=== PATIENT | female | born 1955 | race American Indian/Alaskan Native ===

== ENCOUNTER 2017-02-28 06:00 | Inpatient (IN) | payer MEDICARE ==
[2017-02-28] MEDS ORDERED: ROCEPHIN/NS 1 GM/50 ML 1 GM/50 ML BAG IV ONE (06:42)
[2017-02-28] MEDS ORDERED: NACL 0.9% 1000 ML IV ONE (06:42)
[2017-02-28] MEDS ORDERED: ZOSYN/NS 4.5GM/100ML 4.5 GM/100 ML VIAL IV ONE (06:48)
--- NOTE | 2017-02-28 06:49 | Emergency Department Report ---
ED General Adult HPI - General Chief complaint: Hypoglycemia Stated complaint: LOW BLOOD SUGAR Time Seen by Provider: 02/28/17 06:41 Source: patient, EMS, RN notes reviewed Mode of arrival: Stretcher Limitations: Altered Mental Status, Physical Limitation - History of Present Illness Initial comments: This is a 61-year-old female. She is previously unknown to me. Past medical history includes stroke, diabetes, hypertension. Patient is brought to the hospital by EMS for hypoglycemia and altered mental status. As per EMS documentation, patient is "sitting up and salivating for the mouth. Patient unresponsive to verbal and physical stimuli. Engine 3% patient's blood glucose level and found it to be 19 mg/dL engine 3 immediately obtained IV access, and made 3 administered 25 g of D50. 20-gauge IV in the right antecubital fossa. Patient very slow to return to normal baseline. Patient's family stated they simply thought she was sleeping until they tried to wake her up. Patient denied other complaints." EMS further documents that the patient began to become slightly more alert and responsive to voice. Patient was able to consume peanut butter sandwich. Patient indicated to EMS that she wants to go to the hospital. In the ER, the patient admits to generalized weakness, but is somewhat somnolent. She is not able to further clarify this, nor is she able to describe exacerbating or relieving factors. -: unknown Improves with: medication, other (per hpi) Worsens with: other (per hpi) Associated Symptoms: confusion, weakness - Related Data Home Medications Medication Instructions Recorded Confirmed Last Taken Clopidogrel [Plavix] 75 mg PO QDAY 12/26/14 12/26/14 12/26/14 Hydrochlorothiazide [HCTZ] 25 mg PO QDAY 12/26/14 12/26/14 12/26/14 Insulin Aspart [NovoLOG 100 5 units SQ TID 12/26/14 12/26/14 12/26/14 UNITS/ML VIAL] Insulin Glargine [Lantus VIAL] 40 units SQ QHS 12/26/14 12/26/14 12/26/14 Losartan [Cozaar] 50 mg PO QDAY 12/26/14 12/26/14 12/26/14 Metoprolol [Lopressor TAB] 12.5 mg PO BID 12/26/14 12/26/14 12/26/14 Omeprazole [PriLOSEC] 40 mg PO ACHS 12/26/14 12/26/14 12/26/14 Simvastatin [Zocor TAB] 20 mg PO QHS 12/26/14 12/26/14 12/26/14 metFORMIN [Glucophage] 1,000 mg PO BID 12/26/14 12/26/14 12/26/14 Previous Rx's Medication Instructions Recorded Last Taken Type Aspirin [Aspirin TAB] 325 mg PO QDAY tablet 12/30/14 Unknown Rx HYDROcodone/ACETAMINOPHEN [Xodol 1 tab PO Q6H PRN #20 12/30/14 12/26/14 Rx 7.5-300 mg TAB] Metoprolol [Lopressor TAB] 50 mg PO BID #60 tablet 12/30/14 Unknown Rx Allergies Allergy/AdvReac Type Severity Reaction Status Date / Time No Known Allergies Allergy Verified 12/26/14 15:33 ED Review of Systems ROS: Stated complaint: LOW BLOOD SUGAR Other details as noted in HPI Comment: Unobtainable due to pts medical conditions (famly not available for collateral) ED Past Medical Hx - Past Medical History Hx Hypertension: Yes Hx CVA: Yes ("IN MY EYES") Hx Diabetes: Yes Hx Arthritis: Yes Hx Asthma: Yes Hx COPD: No Hx HIV: No Additional medical history: CHRONIC BACK PAIN - Surgical History Additional Surgical History: EYE SURGERY - Social History Smoking Status: Never Smoker Substance Use Type: None - Medications Home Medications: Home Medications Medication Instructions Recorded Confirmed Last Taken Type Clopidogrel [Plavix] 75 mg PO QDAY 12/26/14 12/26/14 12/26/14 History Hydrochlorothiazide [HCTZ] 25 mg PO QDAY 12/26/14 12/26/14 12/26/14 History Insulin Aspart [NovoLOG 100 5 units SQ TID 12/26/14 12/26/14 12/26/14 History UNITS/ML VIAL] Insulin Glargine [Lantus VIAL] 40 units SQ QHS 12/26/14 12/26/14 12/26/14 History Losartan [Cozaar] 50 mg PO QDAY 12/26/14 12/26/14 12/26/14 History Metoprolol [Lopressor TAB] 12.5 mg PO BID 12/26/14 12/26/14 12/26/14 History Omeprazole [PriLOSEC] 40 mg PO ACHS 12/26/14 12/26/14 12/26/14 History Simvastatin [Zocor TAB] 20 mg PO QHS 12/26/14 12/26/14 12/26/14 History metFORMIN [Glucophage] 1,000 mg PO BID 12/26/14 12/26/14 12/26/14 History Aspirin [Aspirin TAB] 325 mg PO QDAY tablet 12/30/14 Unknown Rx HYDROcodone/ACETAMINOPHEN [Xodol 1 tab PO Q6H PRN #20 12/30/14 12/26/14 Rx 7.5-300 mg TAB] Metoprolol [Lopressor TAB] 50 mg PO BID #60 tablet 12/30/14 Unknown Rx ED Physical Exam - General Limitations: Altered Mental Status, Physical Limitation General appearance: in no apparent distress, lethargic - Head Head exam: Present: atraumatic, normocephalic - Eye Eye exam: Present: normal appearance, PERRL - ENT ENT exam: Present: mucous membranes dry - Neck Neck exam: Present: normal inspection, full ROM - Respiratory Respiratory exam: Present: normal lung sounds bilaterally. Absent: respiratory distress, wheezes, rales, rhonchi, stridor, chest wall tenderness, accessory muscle use, decreased breath sounds, prolonged expiratory - Cardiovascular Cardiovascular Exam: Present: regular rate, normal rhythm, normal heart sounds. Absent: bradycardia, tachycardia, irregular rhythm, systolic murmur, diastolic murmur, rubs, gallop - GI/Abdominal GI/Abdominal exam: Present: soft, tenderness, normal bowel sounds, other (there is suprapubic and left lower quadrant tenderness. There is no rebound, guarding or peritoneal signs). Absent: distended, guarding, rebound, rigid, pulsatile mass - Extremities Exam Extremities exam: Present: normal inspection, full ROM, normal capillary refill , pedal edema. Absent: calf tenderness - Back Exam Back exam: Present: normal inspection. Absent: tenderness, CVA tenderness (R) - Neurological Exam Neurological exam: Present: altered, other (patient follows commands. Patient moves 4 extremities spontaneously. Unable to participate with extraocular movements. No obvious facial droop. Sensation intact to light touch in 4 extremities) - Psychiatric Psychiatric exam: Present: normal affect, normal mood - Skin Skin exam: Present: warm, dry, intact, normal color. Absent: rash ED Course Vital Signs 02/28/17 02/28/17 06:19 07:46 Temperature 93.0 F L 94.3 F L Pulse Rate 90 86 Respiratory 17 20 Rate Blood Pressure 142/95 Blood Pressure 142/95 170/85 [Left] O2 Sat by Pulse 99 99 Oximetry - Reevaluation(s) Reevaluation #1: 02/28/17 07:05 Differential diagnosis: Bacteremia, pneumonia, urinary tract infection, intra- abdominal infection (abscess/colitis/diverticulitis/perforation), hypoglycemia, sepsis Assessment and plan: 61-year-old female with lethargy, resolved hypoglycemia, hypothermia, left lower quadrant abdominal tenderness. Clinical picture concerning for abdominal sepsis. The patient will be started on the sepsis pathway. She will be given appropriate broad-spectrum antibiotics, 30 mL/kg of IV fluid, blood cultures, urine cultures, urinalyses, appropriate laboratory studies, timed lactic acid will be obtained. There was no indication of trauma from her history. Noncontrast CT scan of the brain and abdomen and pelvis pending. Plan to admit once initial data points have resulted. Reevaluation #2: 02/28/17 08:13 ct brain negative for acute findings ct a/p negative for acute findings UA pending case presented to [facility], who accepts patient to medical service ED Medical Decision Making - Lab Data Result diagrams: 02/28/17 06:41 02/28/17 06:41 Vital Signs (72 hours) 02/28/17 06:19 Temperature 93.0 F L Pulse Rate 90 Respiratory 17 Rate Blood Pressure 142/95 Blood Pressure 142/95 [Left] O2 Sat by Pulse 99 Oximetry Lab Results 02/28/17 Range/Units 06:13 POC Glucose 202 H (70-105) - EKG Data -: EKG Interpreted by Me EKG shows normal: sinus rhythm Rate: normal - EKG Data When compared to previous EKG there are: no significant change 02/28/17 07:06 normal sinus, 82 bpm, normal axis, QTC 502 ms, abnormal EKG, not morphologically consistent with STEMI appears unchanged from prior from December 2014. - Radiology Data Radiology results: image reviewed interpreted by me: X-ray of the chest is negative for acute disease Critical care attestation.: If time is entered above; I have spent that time in minutes in the direct care of this critically ill patient, excluding procedure time. ED Disposition Clinical Impression: Hypothermia, Hypoglycemia Disposition: DC-09 OP ADMIT IP TO THIS HOSP Is pt being admited?: Yes Condition: Fair Referrals: REGINALDO ACOSTA MD [Primary Care Provider] - 3-5 Days
[2017-02-28] MEDS ORDERED: D5/0.45NS 1,000 ML IV SCH (07:00)
[2017-02-28 07:10] LABS: Basophils % (Auto) 0.5 % (0.0-1.8); Eosinophils % (Auto) 0.4 % (0.0-4.3); Mean Corpuscular HGB Conc 30 % (30-34); Platelet Count 295 K/mm3 (140-440); Red Blood Count 5.07 M/mm3 (3.65-5.03); Red Cell Distribution Width 18.2 % (13.2-15.2); White Blood Count 10.4 K/mm3 (4.5-11.0)
[2017-02-28 07:12] LABS: Hematocrit 35.3 % (30.3-42.9); Hemoglobin 10.8 gm/dl (10.1-14.3); Mean Corpuscular Hemoglobin 21 pg (28-32); Mean Corpuscular Volume 70 fl (79-97)
[2017-02-28 07:21] LABS: INR 1.05 (0.87-1.13)
--- NOTE | 2017-02-28 07:23 | Admit Criteria Form ---
Admission Criteria Documentation: GENERAL ADMISSION CRITERIA (Place 'X' for any and all applicable criteria): Admission is indicated for ANY ONE of the following: [ X]I. Hemodynamic instability as indicated by ANY ONE of the following(1)(2 )(3)(4)(5): [ ]a) Vital sign abnormality not readily corrected by appropriate treatment within 12 to 24 hours indicated by ANY ONE of the following: [ ]i) Hypotension [ ]ii) Symptomatic Tachycardia unresponsive to treatment (eg , analgesia, fluids, sedation as indicated) [ ]iii) Orthostatic vital sign changes unresponsive to treatment (eg, fluids) [ X]b) Vital sign abnormality that is severe indicated by ANY ONE of the following: [ X]i) Inadequate perfusion indicated by ANY ONE of the following: [ X]1) Lactic acidosis (greater than 2 mmol/L) [ ]2) New abnormal capillary refill (greater than 3 seconds) [ ]3) Other metabolic acidosis (arterial pH less than 7.35) not otherwise explained [ ]4) Reduced urine output [ ]5) Altered mental status [ ]6) Myocardial Ischemia [ ]v) Mean arterial pressure[A] less than 60 mm Hg [ ]vi) Mean arterial pressure[A] less than 70 mm Hg after 30 minutes of appropriate treatment (eg, fluid resuscitation) [ ]vii) IV inotropic or vasopressor medication required to maintain adequate blood pressure or perfusion [ ]viii) Sustained heart rate greater than 120 beats per minute in adult or child 6 years or older[B]] [ ]II. Hypertension requiring inpatient treatment as indicated by ANY ONE of the following(6)(7)(8): [ ]a) SBP greater than 220 mm Hg or DBP greater than 120 mm Hg despite treatment [ ]b) SBP greater than 140 mm Hg or DBP greater than 100 mm Hg with evidence of acute end organ damage as indicated by ANY ONE of the following: [ ]i) Encephalopathy [ ]ii) Acute renal failure as indicated by new onset of ANY ONE of the following(9)(10)(11)(12)(13): [ ]1) A 3-fold rise in serum creatinine from baseline [ ]2) Serum creatinine greater than 4 mg/dL ( 354 micromoles/L) with acute rise greater than 0.5 mg/dL (44.2 micromoles/L) [ ]3) Reduction of more than 75% in estimated glomerular filtration rate from baseline [ ]4) Estimated glomerular filtration rate less than 35 mL/min/1.73m2 (0.59 mL/sec/1.73m2) in child up to 18 years of age [ ]5) Cessation of urine output indicated by ALL of the following: [ ]A. Adequate volume status [ ]B. Inadequate urine output as indicated by ANY ONE of the following: [ ]a. Urine output less than 0.3 mL/kg/hr for 24 hours [ ]b. Anuria (urine output less than 0.1 mL/kg/hr) for 12 hours [ ]iii) Aortic dissection [ ]iv) Myocardial ischemia [ ]v) Left ventricular heart failure [ ]vi) Retinal hemorrhage [ ]vii) Other significant finding [ ]c) Hypertension in child requiring inpatient treatment as indicated by ALL of the following(14)(15)(16): [ ]i) Outpatient treatment not effective, not available, or not appropriate [ ]ii) SBP or DBP greater than 95th percentile for age [ ]iii) Evidence of acute end organ damage as indicated by ANY ONE of the following: [ ]1) Altered mental status [ ]2) Acute renal failure as indicated by new onset of ANY ONE of the following(9)(10)(11)(12)(13): [ ]A. A 3-fold rise in serum creatinine from baseline [ ]B. Serum creatinine greater than 4 mg/dL (354 micromoles/L) with acute rise greater than 0.5 mg/dL (44.2 micromoles/L) [ ]C. Reduction of more than 75% in estimated glomerular filtration rate from baseline [ ]D. Estimated glomerular filtration rate less than 35 mL/min/1.73m2 (0.59 mL/sec/1.73m2)in child up to 18 years of age [ ]E. Cessation of urine output indicated by ALL of the following: [ ]a. Adequate volume status [ ]b. Inadequate urine output as indicated by ANY ONE of the following: [ ]1) Urine output less than 0.3 mL/kg/hr for 24 hours [ ]2) Anuria (urine output less than 0.1 mL/kg/hr) for 12 hours [ ]3) Severe headache [ ]4) Visual disturbance [ ]5) Retinal hemorrhage [ ]6) Other significant finding [ ]III. Acute cardiac or peripheral ischemia as indicated by ANY ONE of the following: [ ]a) Acute coronary syndrome(17)(18) [ ]b) Acute peripheral ischemia (eg, pulseless, cool, mottled, or cyanotic extremity)(19) [ ]IV. Cardiac arrhythmias or findings of immediate concern indicated by ANY ONE of the following(20)(21): [ ]a) Heart rhythms that are inherently dangerous or unstable indicated by ANY ONE of the following(22)(23)(24): [ ]i) Resuscitated ventricular fibrillation or cardiac arrest [ ]ii) Ventricular escape rhythm [ ]iii) Sustained ventricular tachycardia (30 seconds or more of ventricular rhythm at greater than 100 beats per minute) [ ]iv) Nonsustained ventricular tachycardia and ANY ONE of the following: [ ]1) Suspected cardiac ischemia as cause or consequence of ventricular tachycardia [ ]2) In setting of acute myocarditis [ ]b) Unstable cardiac conduction defects indicated by ANY ONE of the following(24)(25)(26): [ ]i) Type II second-degree atrioventricular block [ ]ii) Third-degree atrioventricular block [ ]iii) New-onset left bundle branch block with suspected myocardial ischemia [ ]c) Any heart rhythm and ANY ONE of the following(22)(23)(27)(28)( 29): [ ] i) Continuous long-term ECG monitoring needed (eg, initiation of drug requiring monitoring for more than 24 hours) [ ] ii) Patient has automatic implanted cardioverter defibrillator that is repeatedly firing, malfunctioning, or in need of immediate adjustment of settings beyond the scope of ambulatory or observation care. [ ]d) Heart rhythms of concern due to ANY ONE of the following: [ ]i) Hypotension [ ]ii) Respiratory distress [ ]iii) Association with other significant symptoms (eg, bradycardia with syncope or ongoing dizziness, supraventricular tachycardia with chest pain) (27)(28) (30) [ ] V. Severe heart failure as indicated by ANY ONE of the following ( 31)(32): [ ]a) Respiratory distress [ ]b) Hypotension [ ]c) Anasarca (refractory to outpatient therapy) [ ]d) Cardiac arrhythmias of immediate concern [ ]e) Myocardial ischemia [ ]. Respiratory abnormalities, including ANY ONE of the following(33)(34) (35)(36): [ ]a) Respiratory rate greater than 30 breaths per minute unresponsive to treatment [A] [ ]b) New saturation of arterial oxygen less than 90% [ ]c) New partial pressure of carbon dioxide greater than 44 mm Hg ( 5.9 kPa) [ ]d) Supplemental oxygen or respiratory treatments needed that are new or not performable at other levels of care [ ]e) New-onset cyanosis [ ]f) Inability to protect airway [ ]g) Chronic lung disease with severe deterioration (not responsive to emergency and observation care treatment as appropriate) as indicated by ANY ONE of the following(34)(36 ): [ ]i) SaO2 5% below baseline in patient with chronic hypoxemia [ ]ii) New requirement for supplemental oxygen to keep SaO2 at baseline or acceptable level [ ]iii) Required supplemental oxygen performable only in acute inpatient setting [ ]iv) Severe airflow or ventilation abnormalities [ ]v) Previously mobile patient unable to walk between rooms [ ]vi Inability to eat or sleep due to dyspnea [ ]vii) Rapid rate of exacerbation onset [ ]viii) Altered mental status ]VII. Severe airflow or ventilation abnormalities (not responsive to emergency and observation care treatment as appropriate) as indicated by ANY ONE of the following(33)(34)(35)(37): [ ]a) PCO2 greater than 42 mm Hg (5.6 kPa) and pH less than 7.35 (new ) [ ]b) Documented PCO2 increased more than 5 mm Hg (0.7 kPa) from disease baseline [ ]c) Airflow measurements [B] less than 60% of previous best or predicted (eg, peak expiratory flow rate less than 300 L/minute) despite intensive emergent treatment [C] [ ]d) Required respiratory treatments that are performable only in acute inpatient setting [ ]VIII. Impending or actual respiratory arrest ( Also use Respiratory Failure GRG for severe respiratory disease and long-term mechanical ventilation patients) [ ]IX. Neurologic abnormalities, including ANY ONE of the following: [ ]a) New findings that suggest ANY ONE of the following: [ ]i) HEAD LIBRARIAN infection(38) [ ]ii) Cerebral bleeding, ischemia, or vasospasm(39)(40) [ ]iii) Increased intracranial pressure, hydrocephalus, or cerebral edema(41)(42)(43) [ ]iv) Spinal cord injury(44) [ ]b) Uncontrolled seizures(45) [ ]c) New-onset coma (eg, Dexter coma scale score less than 9) or unexplained abnormal mental status (eg, Rohan coma scale score less than 14) [D](41)(46)(47) [ ]X. New-onset severe neurologic findings requiring inpatient care; examples include(42)(48)(49): [ ]a) Papilledema [ ]b) Cerebral edema [ ]c) Mass effect on CT scan [ ]XI. Suspected acute intra-abdominal process with peritoneal signs, abdominal mass, or similar findings (50)(51)(52) [ X]XII. Severe physiologic disorder remaining after emergency or observation level care (as appropriate) as indicated by ANY ONE of the following (53): [ ]a) Significant dehydration [ ]b) Diabetic ketoacidosis [ ]c) Hyperglycemic hyperosmolar state (eg, osmolality greater than 320 mOsm/kg (mmol/kg) [ X]d) Hypoglycemia [ ]e) Other (new) acid-base disorder with pH less than 7.35 or greater than 7.5(54) [ ]f) Thyroid storm (55) [ ]g) Myxedema coma (55) [ ]XIII. Abdominal abnormalities with ANY ONE of the following(56)(57): [ ]a) Absent bowel sounds with complete ileus [ ]b) Signs of intestinal obstruction or peritonitis [E] [ ]c) Nausea and vomiting that cannot be controlled with outpatient or observation care [ ]XIV. Acute renal failure as indicated by new onset of ANY ONE of the following(9)(10)(11)(12)(13): [ ]a) A 3-fold rise in serum creatinine from baseline [ ]b) Serum creatinine greater than 4 mg/dL (354 micromoles/L) with acute rise greater than 0.5 mg/dL (44.2 micromoles/L) [ ]c) Reduction of more than 75% in estimated glomerular filtration rate from baseline [ ]d) Estimated glomerular filtration rate less than 35 mL/min/ 1.73m2 (0.59 mL/sec/1.73m2) in child up to 18 years of age [ ]e) Cessation of urine output indicated by ALL of the following: [ ]i) Adequate volume status [ ]ii) Inadequate urine output as indicated by ANY ONE of the following: [ ]1) Urine output less than 0.3 mL/kg/hr for 24 hours [ ]2) Anuria (urine output less than 0.1 mL/kg/hr) for 12 hours [ ]XV. Significant uremic complications as indicated by ANY ONE of the following(58)(59)(60): [ ]a) Outpatient therapy is ineffective or not feasible for ANY ONE of the following: [ ]i) Severe heart failure [ ]ii) Severehypertension [ ]iii) Pleural effusion [ ]iv) Pericarditis or pericardial effusion [ ]b) Cardiac arrhythmias of immediate concern [ ]c) Intractable nausea or vomiting [ ]d) Recurrent seizures [ ]e) Encephalopathy [ ]f) Bleeding abnormalities (eg, platelet dysfunction) with active (eg, gastrointestinal) bleeding [ ]g) Dialysis indicated before long-term access or ambulatory arrangements can be made [ ]h) Significant metabolic or electrolyte abnormalities (eg, severe acidosis or hyperkalemia) [ ]XVI. High fever or other high-risk infection situation as indicated by ANY ONE of the following(61)(62)(63)(64): [ ]a) Outpatient and observation care antimicrobial treatment unavailable, not effective, or not appropriate [ ]b) Documented bacteremia [ ]c) Temperature greater than 40.5 degrees C (104.9 degrees F) ( oral) [ ]d) Temperature greater than 39.5 degrees C (103.1 degrees F) ( oral) or less than 36 degrees C (96.8 degrees F) (rectal) that does not respond to e treatment and observation care [X] XVII. Temperature less than 95 degrees F (35 degrees C)(rectal)(65) [ ] XVIII. Severe nutritional abnormalities as indicated by ALL of the following (66)(67): [ ]a) Inability to tolerate or establish sufficient oral or other enteral nutrition in outpatient setting [ ]b) Parenteral nutrition regimen need that must be implemented on inpatient basis [ ] XIX. Severe electrolyte abnormalities indicated by ALL of the following(68) (69)(70): [ ]a) Electrolytes and associated findings are not as expected for patient baseline or acceptable treatment effects. [ ]b) Severe abnormalities indicated by ANY ONE of the following: [ ]i) Sodium less than 130 mEq/L (mmol/L) (new) [ ]ii)Sodium less than 135 mEq/L (mmol/L) with ANY ONE of the following: [ ]1) Uncorrectable (to near normal or chronic baseline) after trial of outpatient and emergency treatment [ ]2) Altered mental status [ ]3) Seizures [ ]4) Severe medical etiology requiring inpatient management (eg, heart failure, hypovolemia) [ ]iii) Sodium greater than 155 mEq/L (mmol/L) [ ]iv) Sodium greater than 150 mEq/L (mmol/L) with ANY ONE of the following: [ ]1) Uncorrectable (to near normal or chronic baseline) with outpatient and emergency treatment [ ]2) Altered mental status [ ]3) Seizures [ ]4) Severe medical etiology (eg, hypovolemia, diabetes insipidus) [ ]v) Potassium less than 2.5 mEq/L (mmol/L) despite outpatient and emergency treatment [ ]vi) Potassium less than 3 mEq/L (mmol/L) with ANY ONE of the following: [ ]1) Weakness [ ]2) Cardiac abnormality (eg, arrhythmia, conduction disturbance) [ ]3) Cardiac ischemia [ ]4) Ileus [ ]5) Ongoing medical cause requiring inpatient management (eg, acute renal wasting or SIADH) [ ]6) Other severe symptoms [ ]vii) Potassium greater than 6.5 mEq/L (mmol/L) [ ]viii) Potassium greater than 5 mEq/L (mmol/L) with ANY ONE of the following: [ ]1) Uncorrectable (to near normal or chronic baseline) with outpatient and emergency treatment [ ]2) Severe ECG findings [F] [ ]3) Acute worsening of renal failure (creatinine greater than 2.5 mg/dL (221 micromoles/L) or significant elevation for age and size) [ ]4) Severe weakness [ ]5) Severe medical etiology (eg, hemolysis, infection, drug overdose) [ ]ix) Calcium less than 7 mg/dL (1.75 mmol/L) despite outpatient and emergency treatment (72) [ ]x) Calcium less than 8 mg/dL (2 mmol/L) with significant symptoms or findings; examples include(72): [ ]1) Altered mental status [ ]2) Muscle spasms [ ]3) Seizures [ ]4) Breathing difficulty [ ]5) Cardiac abnormality (eg, arrhythmia or conduction disturbance) [ ]xi) Calcium greater than 14 mg/dL (3.5 mmol/L)(72) [ ]xii) Calcium greater than 12 mg/dL (3 mmol/L) with ANY ONE of the following(72): [ ]1) Uncorrectable (to near normal or chronic baseline) with outpatient and emergency treatment [ ]2) Significant dehydration or hypovolemia as indicated by ALL of the following(70)(73)(74): [ ]A. Not resolved with initial treatments [ ]B. Clinically significant dehydration as indicated by ANY ONE of the following: [ ]a. Vomiting refractory to outpatient treatment (ie, precluding oral rehydration) [ ]b. Inability to drink [ ]c. Hypernatremia or other electrolyte abnormality unable to be corrected with outpatient and emergency treatment [ ]d. Failure to remain hydrated with outpatient therapy [ ]e. Reduced urine output [ ]f. Hypotension [ ]g. Serious cause for dehydration requiring acute hospitalization (eg, bowel obstruction, increased intracranial pressure, infectious cause) [ ]h. Child with ANY ONE of the following(75): [ ]1) Severe abdominal tenderness [ ]2) Adequate care not available at home [ ]3) Severe dehydration ( greater than 9% loss of body weight) [ ]4) Significant symptoms or findings; examples include: [ ]A. Altered mental status [ ]B. Cardiac abnormality (eg, arrhythmia, conduction disturbance) [ ]C. Malignant etiology requiring inpatient treatment [ ]xiii) Phosphorus less than 1 mg/dL (0.32 mmol/L) [ ]xiv) Phosphorus less than 1.5 mg/dL (0.48 mmol/L) with ANY ONE of the following: [ ]1) Patient unresponsive to outpatient and emergency treatment [ ]2) Significant symptoms or findings; examples include: [ ]A. Weakness [ ]B. Altered mental status [ ]C. Breathing difficulty [ ]D. Seizures [ ]E. Rhabdomyolysis [ ]xv) Phosphorus greater than 10 mg/dL (3.2 mmol/L) [ ]xvi) Phosphorus greater than 4.5 mg/dL (1.45 mmol/L) (new) with ANY ONE of the following: [ ]1) Severe medical etiology (eg, crush injury, acute renal failure) [ ]2) Associated hypocalcemia with significant findings; examples include: [ ]A. Neurologic symptoms [ ]B. Altered mental status [ ]C. Muscle spasms [ ]D. Seizures [ ]E. Breathing difficulty [ ]F. Cardiac abnormality (eg, arrhythmia, conduction disturbance) [ ]xvii) Magnesium less than 1 mg/dL (0.41 mmol/L) [ ]xviii) Magnesium less than 1.5 mg/dL (0.62 mmol/L) with ANY ONE of the following: [ ]1) Patient unresponsive to outpatient and emergency treatment [ ]2) Associated hypocalcemia with significant findings; examples include: [ ]A. Altered mental status [ ]B. Muscle spasms [ ]C. Seizures [ ]D. Breathing difficulty [ ]E. Cardiac abnormality (eg, arrhythmia , conduction disturbance) [ ]3) Associated hypokalemia (potassium less than 3 mEq/L (mmol/L)) with risk of arrhythmia [ ]xix) Magnesium greater than 4 mEq/L (2 mmol/L) [ ]xx) Magnesium greater than 2.5 mEq/L (1.25 mmol/L) with significant symptoms or findings; examples include: [ ]1) Weakness [ ]2) Altered mental status [ ]3) Cardiac abnormality (eg, arrhythmia, conduction disturbance) [ ]4) Breathing difficulty [ ]5) Severe medical etiology (eg, renal failure, hypovolemia) [ ]xxi) Uric acid greater than 20 mg/dL (1190 micromoles/L)(76) [ ]xxii) Uric acid greater than 8 mg/dL (476 micromoles/L) with significant symptoms or findings of tumor lysis syndrome; examples include(76): [ ]1) Creatinine greater than 1.5 times upper limit of normal [ ]2) Cardiac abnormality (eg, arrhythmia, conduction disturbance) [ ]3) Seizure [ ]XX. Acute blood loss causing significant abnormality as indicated by ANY ONE of the following(77)(78): [ ]a) Hemoglobin less than 10 g/dL (100 g/L) (not baseline) [ ]b) Hematocrit less than 30% (0.30) (not baseline) [ ]c) Repeat hematocrit decreased more than 2% (0.02) [ ]d) Uncontrolled bleeding [ ]XXI. Severe anemia indicated by ANY ONE of the following(78)(79): [ ]a) Altered mental status [ ]b) Chest pain [ ]c) Exertional dyspnea [ ]d) Syncope [ ]e) Other findings suggesting inadequate perfusion [ ]f) Treatment with transfusion or volume replacement is ineffective at resolving ANY ONE of the following [G]: [ ]i) Tachycardia for age [ ]ii) Orthostatic vital sign changes as indicated by ANY ONE of the following(80): [ ]1) Fall in SBP of 20 mm Hg or more 1 to 3 minutes after patient sits or stands from recumbent position [ ]2) Fall in DBP of 10 mm Hg or more 1 to 3 minutes after patient sits or stands from recumbent position [ ]XXII. High-risk low platelet count as indicated by ANY ONE of the following( 81)(82): [ ]a) Severe or life-threatening bleeding (eg, intracranial, major gastrointestinal, or extensive mucosal bleeding), with any reduced platelet count [ ]b) Platelet count less than 20,000/mm3 (20 x109/L) with any active bleeding [ ]c) Platelet count less than 10,000/mm3 (10 x109/L) with minor purpura or petechiae [ ]d) Platelet count less than 5000/mm3 (5 x109/L) [ ]e) Low platelet count with hemolytic anemia [ ]XXIII. Disseminated intravascular coagulation(77)(83) [ ]XXIV. Severe adverse drug or systemic toxin reaction requiring inpatient treatment; examples include(84)(85): [ ]a) Serotonin syndrome(86) [ ]b) Neuroleptic malignant syndrome(86) [ ]c) Cholinergic syndrome with severe symptoms (eg, bronchorrhea, weakness, mental status changes, seizures) [ ]d) Sympathetic syndrome with severe symptoms (eg, seizures, mental status changes, cardiac dysrhythmias) [ ]e) Anticholinergic syndrome [ ]XXV. Severe pain requiring acute inpatient management as indicated by ALL of the following (87)(88)(89): [ ]a) Continuous or frequent (eg, every 2 to 4 hours) parenteral analgesics required [H] [ ]b) Rapid improvement expected from treatment or acute intervention (eg, surgery, anesthesia procedure) [ ]XXVI.Severe behavioral health issues judged unmanageable at a lower level of care (eg, residential) in a patient who is ANY ONE of the following(91) [ ]a) Acutely suicidal [ ]b) A danger to self (eg, self-mutilating or suicidal behavior) [ ]c) A danger to others (eg, assaultive or homicidal behavior) [ ]d) Incapacitated because of grave disability (eg, inability to provide for self at lower level of care) (92) [ ]XXVII. Inpatient monitoring needed; examples include(1)(3)(87)(93)(94)(95)(96 ): [ ]a) Vital signs, neurologic signs, or vascular checks more frequently than every 4 hours [ ]b) Cardiac or respiratory monitoring beyond the scope (eg, over 24 hours) of observation care [ ]c) Pulmonary artery catheter monitoring [ ]d) Suspected compartment syndrome(97) (98) [ ]e) Cerebral bleeding, hydrocephalus, or vasospasm monitoring [ ]f) Increased intracranial pressure or cerebral edema monitoring [ ]g) monitoring [ ]XXVIII. Treatment requiring inpatient care; examples include: [ ]a) IV fluid to replace significant ongoing losses (greater than 3 L/m2 per day)(53) [ ]b) High concentration oxygen (greater than 40%)(33)(99)(100) [ ]c) Frequent respiratory therapy (more frequently than every 4 hours) to maintain airflow rates greater than 60% of baseline(33)(99)(100) [ ]d) Epidural analgesia(87) [ ]e) IV anticoagulation, vasoactive, or antiarrhythmic medication(19 )(23) [ ]f) Acute thrombolytics (generally require 24 hours of observation )(101)(102) [ ]XXIX. Emergency procedures needed; examples include: [ ]a) Emergency inpatient surgery [ ]b) Temporary pacemaker placement(103) [ ]c) Chest tube placement with active evacuation (eg, suction, drainage)(104) [ ]d) Emergent cardioversion(105) [ ]e) Emergent cardiac or vascular procedures (eg, cardiac catheterization, angioplasty) (17)(18) [ ]f) Emergent dialysis access placement and institution(10)(106) [ ]g) Emergent pericardiocentesis(107) [ ]h) Emergent plasmapheresis or leukapheresis(83) [ ]i) Emergent tracheostomy The original [facility] content created by [facility] has been revised. The portions of the content which have been revised are identified through the use of italic text or in bold, and [email or web address] [employer] has neither reviewed nor approved the modified material. All other unmodified content is copyright [facility]. Please see references footnoted in the original [facility] edition 2016 Admission Criteria Met: Yes
--- NOTE | 2017-02-28 07:24 | XRay Report ---
AP CHEST: HISTORY: Fever, sepsis AP view of the chest demonstrates a normal mediastinal and cardiac contour with clear lungs and normal bony and soft tissue structures. IMPRESSION: Unremarkable AP chest. No change since 01/05/15.
[2017-02-28 07:27] LABS: Alanine Aminotransferase 13 units/L (7-56); Albumin 4.4 g/dL (3.9-5); Albumin/Globulin Ratio 1.3 %; Alkaline Phosphatase 84 units/L (35-129); Anion Gap 24 mmol/L; BUN/Creatinine Ratio 13.33; Blood Urea Nitrogen 8 mg/dL (7-17); Calcium 9.5 mg/dL (8.4-10.2); Carbon Dioxide 20 mmol/L (22-30); Chloride 101.8 mmol/L (98-107); Glucose 173 mg/dL (65-100); Potassium 3.8 mmol/L (3.6-5.0); Sodium 142 mmol/L (137-145); Total Protein 7.9 g/dL (6.3-8.2)
--- NOTE | 2017-02-28 07:29 | Cat Scan Report ---
CT HEAD WITHOUT CONTRAST: HISTORY: Fever, Sepsis, mental status changes. Technique: Sequential noncontrast CT images in 2.5 mm intervals. Findings: Compared to 12/26/14. Mild cortical volume loss and mild nonspecific chronic white matter changes are stable. There are multiple, bilateral chronic appearing lacunar infarcts in the thalami and angel. There does appear to be one new area of diminished attenuation in the posterior medial left angel since the previous exam. The age of this is indeterminate but I suspect it is chronic. No large ischemic infarct or hemorrhage is identified. Ventricular size is within normal limits. The basal cisterns are clear. The mastoid air cells and visualized portions of the sinuses are normal. IMPRESSION: Mild volume loss and chronic white matter changes. 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 Please see above. If further evaluation is needed, MRI brain could be obtained. No acute intracranial process is appreciated.
--- NOTE | 2017-02-28 07:36 | Cat Scan Report ---
CT OF THE ABDOMEN AND PELVIS WITHOUT CONTRAST HISTORY: Left lower quadrant abdominal pain, evaluate for diverticulitis, perforation or abscess. TECHNIQUE: Helical CT without contrast. Sagittal and coronal reformatted images. FINDINGS: A CT abdomen pelvis without contrast report dated 01/16/12 was reviewed. The images were not available. Heart size is normal. The visualized lung bases are clear. Mild thoracolumbar spondylosis. No bony lesion or fracture. The bowel loops are within normal limits given oral contrast was administered. There is no evidence for diverticulosis or diverticulitis. No obstruction or focal inflammation. The appendix is within normal limits. The liver, biliary system, pancreas, spleen, adrenal glands and aorta are unremarkable. The bladder is moderately distended. No bladder wall thickening or filling defect is appreciated. The kidneys are unremarkable. No focal lesion or nephrolithiasis. Minimal nonspecific perinephric stranding is noted bilaterally. The ureters are normal course and caliber. Hysterectomy changes. No evidence for ascites, adenopathy, free air or inflammatory changes. IMPRESSION: No definite acute inflammatory process is appreciated in the abdomen or pelvis. No clear explanation for left lower quadrant abdominal pain. The bladder is moderately distended but otherwise unremarkable. Please correlate with the patient's clinical presentation.
[2017-02-28] MEDS ORDERED: NACL 0.9% 250ML 250 ML ONE (07:53)
[2017-02-28 08:11] LABS: Urine Drugs of Abuse Note Disclamer
[2017-02-28] MEDS ORDERED: MILK OF MAGNESIA PO PRN ×2 (08:16→12:07)
[2017-02-28] MEDS ORDERED: TYLENOL PO PRN ×2 (08:16→12:07)
--- NOTE | 2017-02-28 08:20 | History and Physical Report ---
<ROCKYJAYDA VILLANUEVA - Last Filed: 02/28/17 12:39> History of Present Illness Date of examination: 02/28/17 Date of admission: 02/28/2017 Chief complaint: Altered mental status History of present illness: Patient is 61 years old female with past medical history CVA, hypertension diabetes mellitus. Patient Altered mental status, unable to obtain history. Patient is brought to the hospital by EMS for hypoglycemia and altered mental status. As per EMS documentation, patient is "sitting up and salivating for the mouth. Patient unresponsive to verbal and physical stimuli. Patient have found hypoglycemic with blood glucose 19 mg/dL. history obtained from ER physician and charts. Past History Past Medical History: diabetes, hypertension, hyperlipidemia, stroke Past Surgical History: Other (unable to assess) Family history: other (unable to assess) Medications and Allergies Allergies Allergy/AdvReac Type Severity Reaction Status Date / Time No Known Allergies Allergy Verified 12/26/14 15:33 Home Medications Medication Instructions Recorded Confirmed Last Taken Type Clopidogrel [Plavix] 75 mg PO QDAY 12/26/14 02/28/17 02/27/17 History Losartan [Cozaar] 50 mg PO QDAY 12/26/14 02/28/17 02/27/17 History Simvastatin [Zocor TAB] 20 mg PO QHS 12/26/14 02/28/17 02/27/17 History metFORMIN [Glucophage] 1,000 mg PO BID 12/26/14 02/28/17 02/27/17 History Metoprolol [Lopressor TAB] 50 mg PO BID #60 tablet 12/30/14 02/28/17 02/27/17 Rx Albuterol Sulfate [Ventolin HFA] 2 puff IH Q4H PRN 02/28/17 02/28/17 Unknown History Gabapentin [Neurontin] 600 mg PO Q8H 02/28/17 02/28/17 02/27/17 History Insulin Aspart Protam & Aspart 30 units SQ QPM 02/28/17 02/28/17 02/27/17 History [NovoLOG Mix 70-30 Flexpen] Insulin Aspart Protam & Aspart 40 units SQ QAM 02/28/17 02/28/17 02/27/17 History [NovoLOG Mix 70-30 Flexpen] amLODIPine [Norvasc] 5 mg PO DAILY 02/28/17 02/28/17 02/27/17 History Active Meds: Active Medications Dextrose/Sodium Chloride (D5/0.45ns) 1,000 mls @ 0 mls/hr IV DIRECT TICO PRN Reason: Wide Open Review of Systems ROS unobtainable: due to mental status (unable to assess due to patient mental status) Exam - Constitutional Vitals: Temp Pulse Resp BP Pulse Ox 94.3 F L 86 20 170/85 99 02/28/17 07:46 02/28/17 07:46 02/28/17 07:46 02/28/17 07:46 02/28/17 07:46 General appearance: Present: other (confused) - EENT Eyes: Present: PERRL ENT: hearing intact - Neck Neck: Present: supple - Respiratory Respiratory effort: normal Respiratory: bilateral: CTA - Cardiovascular Heart rate: 84 Rhythm: regular Heart Sounds: Present: S1 & S2 - Extremities Extremities: no ischemia Peripheral Pulses: within normal limits - Abdominal General gastrointestinal: Present: soft, non-tender Female genitourinary: Present: deferred - Rectal Rectal Exam: deferred - Integumentary Integumentary: Present: clear, warm, dry - Musculoskeletal Musculoskeletal: strength equal bilaterally - Psychiatric Psychiatric: other (AMS) - Neurologic Neurologic: moves all extremities, other (AMS) - Allied Health Allied health notes reviewed: nursing Results - Labs CBC & Chem 7: 02/28/17 06:41 02/28/17 06:41 Labs: Laboratory Last Values WBC 10.4 K/mm3 (4.5-11.0) 02/28/17 06:41 RBC 5.07 M/mm3 (3.65-5.03) H 02/28/17 06:41 Hgb 10.8 gm/dl (10.1-14.3) 02/28/17 06:41 Hct 35.3 % (30.3-42.9) 02/28/17 06:41 MCV 70 fl (79-97) L 02/28/17 06:41 MCH 21 pg (28-32) L 02/28/17 06:41 MCHC 30 % (30-34) 02/28/17 06:41 RDW 18.2 % (13.2-15.2) H 02/28/17 06:41 Plt Count 295 K/mm3 (140-440) 02/28/17 06:41 Lymph % (Auto) 18.1 % (13.4-35.0) 02/28/17 06:41 [place] % (Auto) 4.0 % (0.0-7.3) 02/28/17 06:41 Eos % (Auto) 0.4 % (0.0-4.3) 02/28/17 06:41 Baso % (Auto) 0.5 % (0.0-1.8) 02/28/17 06:41 Lymph # 1.9 K/mm3 (1.2-5.4) 02/28/17 06:41 [place] # 0.4 K/mm3 (0.0-0.8) 02/28/17 06:41 Eos # 0.0 K/mm3 (0.0-0.4) 02/28/17 06:41 Baso # 0.1 K/mm3 (0.0-0.1) 02/28/17 06:41 Seg Neutrophils % 77.0 % (40.0-70.0) H 02/28/17 06:41 Seg Neutrophils # 8.0 K/mm3 (1.8-7.7) H 02/28/17 06:41 PT 13.6 Sec. (12.2-14.9) 02/28/17 06:55 INR 1.05 (0.87-1.13) 02/28/17 06:55 Sodium 142 mmol/L (137-145) 02/28/17 06:41 Potassium 3.8 mmol/L (3.6-5.0) 02/28/17 06:41 Chloride 101.8 mmol/L (98-107) 02/28/17 06:41 Carbon Dioxide 20 mmol/L (22-30) L 02/28/17 06:41 Anion Gap 24 mmol/L 02/28/17 06:41 BUN 8 mg/dL (7-17) 02/28/17 06:41 Creatinine 0.6 mg/dL (0.7-1.2) L 02/28/17 06:41 Estimated GFR > 60 ml/min 02/28/17 06:41 BUN/Creatinine Ratio 13.33 % 02/28/17 06:41 Glucose 173 mg/dL (65-100) H 02/28/17 06:41 POC Glucose 233 (70-105) H 02/28/17 07:35 Lactic Acid 3.60 mmol/L (0.7-2.0) H* 02/28/17 06:55 Calcium 9.5 mg/dL (8.4-10.2) 02/28/17 06:41 Total Bilirubin 0.30 mg/dL (0.1-1.2) 02/28/17 06:41 AST 15 units/L (5-40) 02/28/17 06:41 ALT 13 units/L (7-56) 02/28/17 06:41 Alkaline Phosphatase 84 units/L (35-129) 02/28/17 06:41 Troponin T < 0.010 ng/mL (0.00-0.029) 02/28/17 06:55 Total Protein 7.9 g/dL (6.3-8.2) 02/28/17 06:41 Albumin 4.4 g/dL (3.9-5) 02/28/17 06:41 Albumin/Globulin Ratio 1.3 % 02/28/17 06:41 - Imaging and Cardiology Chest x-ray: image reviewed (unremarkable AP chest) Abdominal x-ray: image reviewed CT scan - abdomen: image reviewed (bladder is moderately distended but otherwise unremarkable) CT Scan - head: image reviewed (mild volume loss and chronic white matter changes.Multiple bilateral lacunar infracts in the thalami and angel. No acute interacranial process, ) Assessment and Plan Assessment and plan: ASSESSMENT/PLAN Acute metabolic encephalopathy Treat underline cause Most likely due to sepsis CT of the head shows mild volume loss and chronic white matter changes.Multiple bilateral lacunar infarcts in the thalami and angel. No acute interacranial process noted MRI of the for further evaluation. Sepsis Hypothermia Blood and urine culture collected prior to antibiotic IV fluid resuscitation and continuous IVF Started on empiric antibiotic treatment with Zosyn and vancomycin Lactic acidosis Most likely due to sepsis We will repeat Lactic acid level Closely monitor patient Diabetes mellitus Accu-Chek before meals and at bedtime Sliding scale insulin/NovoLog Hypertension Continue home antihypertensive medication HX of CVA Physical therapy and aquatic occupational therapy on board DVT/ GI prophylaxis Lovenox/ Protonix Advance Directives: Yes Contraindication Mechanical VTE Prophylaxis: Treatment Not Indicated Plan of care discussed with patient/family: Yes <LILI CASTREJON R - Last Filed: 03/01/17 11:57> History of Present Illness Date of admission: 02/28/17 08:16 Medications and Allergies Active Meds: Active Medications Acetaminophen (Tylenol) 650 mg PO Q4H PRN PRN Reason: Pain MILD(1-3)/Fever >100.5/[place]ORTON Aspirin (Aspirin) 325 mg PO QDAY [facility] Last Admin: 03/01/17 11:35 Dose: 325 mg Bisacodyl (Dulcolax) 10 mg VA QDAY PRN PRN Reason: Constipation unrelieved by MOM Clopidogrel Bisulfate (Plavix) 75 mg PO QDAY [facility] Last Admin: 03/01/17 11:35 Dose: 75 mg Dextrose (D50w (25gm)) 50 ml IV PRN PRN PRN Reason: Hypoglycemia Enoxaparin Sodium (Lovenox) 40 mg SUB-Q QDAY [facility] Last Admin: 03/01/17 11:34 Dose: 40 mg Hydrochlorothiazide (Hctz) 25 mg PO QDAY [facility] Last Admin: 03/01/17 11:34 Dose: 25 mg Sodium Chloride (Nacl 0.9% 1000 Ml) 1,000 mls @ 75 mls/hr IV DIRECT [facility] Last Admin: 03/01/17 05:36 Dose: 75 mls/hr Piperacillin Sod/Tazobactam Sod (Zosyn/Ns 4.5gm/100ml) 4.5 gm in 100 mls @ 200 mls/hr IV Q6HR [facility] Last Admin: 03/01/17 11:29 Dose: 200 mls/hr Vancomycin HCl (Vancomycin/Ns 1 Gm/250 Ml) 1 gm in 250 mls @ 166.667 mls/hr IV Q12H [facility] Last Admin: 03/01/17 05:35 Dose: 166.667 mls/hr Insulin Aspart (Novolog) 5 units SUB-Q TIDDIAB [facility] Last Admin: 03/01/17 08:22 Dose: Not Given Insulin Detemir (Levemir) 40 units SUB-Q QHS [facility] Last Admin: 02/28/17 22:24 Dose: 40 units Losartan Potassium (Cozaar) 50 mg PO QDAY [facility] Last Admin: 03/01/17 11:34 Dose: 50 mg Magnesium Hydroxide (Milk Of Magnesia) 30 ml PO Q4H PRN PRN Reason: Constipation Metformin HCl (Glucophage) 1,000 mg PO BIDDIAB [facility] Last Admin: 03/01/17 08:21 Dose: 1,000 mg Metoprolol Tartrate (Lopressor) 12.5 mg PO BID [facility] Last Admin: 03/01/17 11:35 Dose: 12.5 mg Ondansetron HCl (Zofran) 4 mg IV Q8H PRN PRN Reason: N/V unrelieved by Reglan Pantoprazole Sodium (Protonix) 20 mg PO ACHS [facility] Last Admin: 03/01/17 11:35 Dose: 20 mg Simvastatin (Zocor) 20 mg PO QHS [facility] Last Admin: 02/28/17 22:17 Dose: 20 mg Vancomycin HCl (Vancomycin Pharmacy To Dose) 1 each IV PKCONSULT [facility] PRN Reason: Protocol Exam - Constitutional Vitals: Temp Pulse Resp BP Pulse Ox 98.2 F 66 20 195/95 98 03/01/17 07:50 03/01/17 11:34 03/01/17 07:50 03/01/17 11:34 03/01/17 07:50 Results - Labs CBC & Chem 7: 03/01/17 03:36 03/01/17 03:36 Labs: Laboratory Last Values WBC 8.2 K/mm3 (4.5-11.0) 03/01/17 03:36 RBC 4.18 M/mm3 (3.65-5.03) 03/01/17 03:36 Hgb 9.1 gm/dl (10.1-14.3) L 03/01/17 03:36 Hct 28.1 % (30.3-42.9) L D 03/01/17 03:36 MCV 67 fl (79-97) L 03/01/17 03:36 MCH 22 pg (28-32) L 03/01/17 03:36 MCHC 32 % (30-34) 03/01/17 03:36 RDW 17.8 % (13.2-15.2) H 03/01/17 03:36 Plt Count 246 K/mm3 (140-440) 03/01/17 03:36 Lymph % (Auto) 34.7 % (13.4-35.0) 03/01/17 03:36 [place] % (Auto) 8.2 % (0.0-7.3) H 03/01/17 03:36 Eos % (Auto) 3.3 % (0.0-4.3) 03/01/17 03:36 Baso % (Auto) 0.7 % (0.0-1.8) 03/01/17 03:36 Lymph # 2.8 K/mm3 (1.2-5.4) 03/01/17 03:36 [place] # 0.7 K/mm3 (0.0-0.8) 03/01/17 03:36 Eos # 0.3 K/mm3 (0.0-0.4) 03/01/17 03:36 Baso # 0.1 K/mm3 (0.0-0.1) 03/01/17 03:36 Seg Neutrophils % 53.1 % (40.0-70.0) 03/01/17 03:36 Seg Neutrophils # 4.3 K/mm3 (1.8-7.7) 03/01/17 03:36 PT 13.6 Sec. (12.2-14.9) 02/28/17 06:55 INR 1.05 (0.87-1.13) 02/28/17 06:55 Sodium 143 mmol/L (137-145) 03/01/17 03:36 Potassium 3.7 mmol/L (3.6-5.0) 03/01/17 03:36 Chloride 104.7 mmol/L (98-107) 03/01/17 03:36 Carbon Dioxide 22 mmol/L (22-30) 03/01/17 03:36 Anion Gap 20 mmol/L 03/01/17 03:36 BUN 7 mg/dL (7-17) 03/01/17 03:36 Creatinine 0.7 mg/dL (0.7-1.2) 03/01/17 03:36 Estimated GFR > 60 ml/min 03/01/17 03:36 BUN/Creatinine Ratio 10.00 % 03/01/17 03:36 Glucose 147 mg/dL (65-100) H 03/01/17 03:36 POC Glucose 156 (70-105) H 03/01/17 11:29 Lactic Acid 2.90 mmol/L (0.7-2.0) H* 02/28/17 09:36 Calcium 8.5 mg/dL (8.4-10.2) 03/01/17 03:36 Total Bilirubin 0.30 mg/dL (0.1-1.2) 02/28/17 06:41 AST 15 units/L (5-40) 02/28/17 06:41 ALT 13 units/L (7-56) 02/28/17 06:41 Alkaline Phosphatase 84 units/L (35-129) 02/28/17 06:41 Troponin T < 0.010 ng/mL (0.00-0.029) 02/28/17 06:55 Total Protein 7.9 g/dL (6.3-8.2) 02/28/17 06:41 Albumin 4.4 g/dL (3.9-5) 02/28/17 06:41 Albumin/Globulin Ratio 1.3 % 02/28/17 06:41 Urine Color Straw (Yellow) 02/28/17 07:55 Urine Turbidity Clear (Clear) 02/28/17 07:55 Urine pH 5.0 (5.0-7.0) 02/28/17 07:55 Ur Specific [place] 1.006 (1.003-1.030) 02/28/17 07:55 Urine Protein <15 mg/dl mg/dL (Negative) 02/28/17 07:55 Urine Glucose (UA) 150 mg/dL (Negative) 02/28/17 07:55 Urine Ketones Neg mg/dL (Negative) 02/28/17 07:55 Urine Blood Neg (Negative) 02/28/17 07:55 Urine Nitrite Neg (Negative) 02/28/17 07:55 Urine Bilirubin Neg (Negative) 02/28/17 07:55 Urine Urobilinogen < 2.0 mg/dL (<2.0) 02/28/17 07:55 Ur Leukocyte Esterase Neg (Negative) 02/28/17 07:55 Urine WBC (Auto) < 1.0 /HPF (0.0-6.0) 02/28/17 07:55 Urine RBC (Auto) 3.0 /HPF (0.0-6.0) 02/28/17 07:55 Urine Bacteria (Auto) 1+ /HPF (Negative) 02/28/17 07:55 Urine Opiates Screen Presumptive negative 02/28/17 07:55 Urine Methadone Screen Presumptive negative 02/28/17 07:55 Ur Barbiturates Screen Presumptive negative 02/28/17 07:55 Ur Phencyclidine Scrn Presumptive negative 02/28/17 07:55 Ur Amphetamines Screen Presumptive negative 02/28/17 07:55 U Benzodiazepines Scrn Presumptive negative 02/28/17 07:55 Urine Cocaine Screen Presumptive negative 02/28/17 07:55 U Marijuana (THC) Screen Presumptive negative 02/28/17 07:55 Drugs of Abuse Note Disclamer 02/28/17 07:55 Assessment and Plan Assessment and plan: I saw and evaluated the patient. I agree with the findings and the plan of care as documented in the Nurse Practitioner's~note, with the following corrections and additions.
[2017-02-28 08:22] LABS: Bacteria,Urine 1+ /HPF (Negative); Bilirubin,Urine NEG (Negative); Blood,Urine NEG (Negative); Ketones,Urine NEG (Negative); Leukocyte Esterase,Urine NEG (Negative); Nitrite,Urine NEG (Negative); Protein,Urine <15 mg/dL mg/dL (Negative); Urobilinogen,Urine < 2.0 mg/dL (<2.0); WBC,Urine < 1.0 /HPF (0.0-6.0)
[2017-02-28] MEDS ORDERED: D50W (25GM) Syringe IV PRN (08:23)
[2017-02-28 09:00] LABS: LA REFLEX Y
[2017-02-28] MEDS ORDERED: LOPRESSOR PO SCH ×2 (10:00)
[2017-02-28] MEDS ORDERED: DULCOLAX PR PRN ×2 (10:00→12:07)
[2017-02-28] MEDS ORDERED: LOVENOX SUB-Q ONE (10:03)
[2017-02-28] MEDS ORDERED: ASPIRIN ONE (10:03)
[2017-02-28] MEDS ORDERED: COZAAR ONE (10:03)
[2017-02-28] MEDS: ASPIRIN PO SCH (10:12)
[2017-02-28] MEDS: COZAAR PO SCH (10:13)
[2017-02-28] MEDS: LOVENOX SUB-Q SCH (10:14)
[2017-02-28] MEDS ORDERED: PLAVIX ONE (10:31)
[2017-02-28] MEDS ORDERED: HCTZ ONE ×2 (10:31→11:38)
[2017-02-28] MEDS: PLAVIX PO SCH (10:36)
[2017-02-28] MEDS: HCTZ PO SCH (10:38)
[2017-02-28] MEDS ORDERED: NON-FORMULARY (Omeprazole [Prilosec] 40 MG) PO SCH (11:30)
[2017-02-28] MEDS ORDERED: LOPRESSOR ONE (11:43)
[2017-02-28] MEDS: LOPRESSOR PO SCH ×2 (11:49→22:17)
[2017-02-28] MEDS ORDERED: ZOFRAN IV PRN (12:07)
[2017-02-28] MEDS ORDERED: VANCOMYCIN PHARMACY TO DOSE IV SCH (13:00)
[2017-02-28] MEDS: PROTONIX PO SCH ×3 (13:30→22:17)
[2017-02-28] MEDS: GLUCOPHAGE PO SCH ×2 (13:33→17:51)
[2017-02-28] MEDS: NACL 0.9% 1000 ML 1,000 ML IV SCH (13:54)
[2017-02-28] MEDS: NOVOLOG SUB-Q SCH ×2 (14:00→17:53)
[2017-02-28] MEDS ORDERED: VANCOMYCIN 1,500 MG in NACL 0.9% 500 ML 500 ML IV ONE (14:00)
[2017-02-28] MEDS: ZOSYN/NS 4.5GM/100ML 4.5 GM/100 ML VIAL IV SCH ×2 (17:52→23:33)
[2017-02-28] MEDS ORDERED: PROTONIX PO SCH (22:00)
[2017-02-28] MEDS ORDERED: NON-FORMULARY (Insulin Glargine 40 UNITS) SQ SCH (22:00)
[2017-02-28] MEDS: ZOCOR PO SCH (22:17)
[2017-02-28] MEDS: LEVEMIR SUB-Q SCH (22:24)
[2017-03-01 04:25] LABS: Basophils % (Auto) 0.7 % (0.0-1.8); Eosinophils % (Auto) 3.3 % (0.0-4.3); Hematocrit 28.1 % (30.3-42.9); Hemoglobin 9.1 gm/dl (10.1-14.3); Mean Corpuscular HGB Conc 32 % (30-34); Platelet Count 246 K/mm3 (140-440); Red Blood Count 4.18 M/mm3 (3.65-5.03); Red Cell Distribution Width 17.8 % (13.2-15.2); White Blood Count 8.2 K/mm3 (4.5-11.0)
[2017-03-01 04:26] LABS: Mean Corpuscular Hemoglobin 22 pg (28-32); Mean Corpuscular Volume 67 fl (79-97)
[2017-03-01 04:38] LABS: Anion Gap 20 mmol/L; Blood Urea Nitrogen 7 mg/dL (7-17); Calcium 8.5 mg/dL (8.4-10.2); Carbon Dioxide 22 mmol/L (22-30); Chloride 104.7 mmol/L (98-107); Glucose 147 mg/dL (65-100); Potassium 3.7 mmol/L (3.6-5.0); Sodium 143 mmol/L (137-145)
[2017-03-01] MEDS: VANCOMYCIN/NS 1 GM/250 ML 1 GM/250 ML BAG IV SCH ×2 (05:35→17:38)
[2017-03-01] MEDS: NACL 0.9% 1000 ML 1,000 ML IV SCH (05:36)
[2017-03-01] MEDS: ZOSYN/NS 4.5GM/100ML 4.5 GM/100 ML VIAL IV SCH ×3 (07:41→17:31)
[2017-03-01] MEDS: GLUCOPHAGE PO SCH ×2 (08:21→17:32)
[2017-03-01] MEDS: PROTONIX PO SCH ×4 (08:21→22:50)
[2017-03-01] MEDS: NOVOLOG SUB-Q SCH ×3 (08:22→17:33)
--- NOTE | 2017-03-01 08:58 | Progress Note ---
Assessment and Plan Assessment and plan: Acute metabolic encephalopathy Resolved. Patient currently oriented to person, place and time. Most likely due to sepsis and hypoglycemic state CT of the head shows mild volume loss and chronic white matter changes.Multiple bilateral lacunar infarcts in the thalami and angel. No acute interacranial process noted MRI of the for further evaluation. Sepsis Hypothermia Blood and urine culture collected prior to antibiotic IV fluid resuscitation and continuous IVF Started on empiric antibiotic treatment with Zosyn and vancomycin Lactic acidosis Resolved Most likely due to sepsis Diabetes mellitus Accu-Chek before meals and at bedtime Sliding scale insulin/NovoLog Hypertension Continue home antihypertensive medication HX of CVA Physical therapy and occupational therapy on board DVT/ GI prophylaxis Lovenox/ Protonix History Interval history: Patient has uneventful overnight Hospitalist Physical - Constitutional Vitals: Temp Pulse Resp BP Pulse Ox 98.2 F 66 20 178/79 98 03/01/17 07:50 03/01/17 07:50 03/01/17 07:50 03/01/17 07:50 03/01/17 07:50 General appearance: Present: no acute distress, other (Alert and oriented to person,place and time.) - EENT Eyes: Present: PERRL ENT: hearing intact - Neck Neck: Present: supple - Respiratory Respiratory effort: normal Respiratory: bilateral: CTA - Cardiovascular Heart rate: 73 Rhythm: regular Heart Sounds: Present: S1 & S2 - Extremities Extremities: no ischemia Peripheral Pulses: within normal limits - Abdominal General gastrointestinal: soft, non-tender - Integumentary Integumentary: Present: clear, warm, dry - Psychiatric Psychiatric: appropriate mood/affect - Neurologic Neurologic: CNII-XII intact - Allied Health Allied health notes reviewed: nursing Results - Labs CBC & Chem 7: 03/02/17 00:55 03/02/17 00:55 Labs: Laboratory Last Values WBC 8.2 K/mm3 (4.5-11.0) 03/01/17 03:36 RBC 4.18 M/mm3 (3.65-5.03) 03/01/17 03:36 Hgb 9.1 gm/dl (10.1-14.3) L 03/01/17 03:36 Hct 28.1 % (30.3-42.9) L D 03/01/17 03:36 MCV 67 fl (79-97) L 03/01/17 03:36 MCH 22 pg (28-32) L 03/01/17 03:36 MCHC 32 % (30-34) 03/01/17 03:36 RDW 17.8 % (13.2-15.2) H 03/01/17 03:36 Plt Count 246 K/mm3 (140-440) 03/01/17 03:36 Lymph % (Auto) 34.7 % (13.4-35.0) 03/01/17 03:36 [place] % (Auto) 8.2 % (0.0-7.3) H 03/01/17 03:36 Eos % (Auto) 3.3 % (0.0-4.3) 03/01/17 03:36 Baso % (Auto) 0.7 % (0.0-1.8) 03/01/17 03:36 Lymph # 2.8 K/mm3 (1.2-5.4) 03/01/17 03:36 [place] # 0.7 K/mm3 (0.0-0.8) 03/01/17 03:36 Eos # 0.3 K/mm3 (0.0-0.4) 03/01/17 03:36 Baso # 0.1 K/mm3 (0.0-0.1) 03/01/17 03:36 Seg Neutrophils % 53.1 % (40.0-70.0) 03/01/17 03:36 Seg Neutrophils # 4.3 K/mm3 (1.8-7.7) 03/01/17 03:36 PT 13.6 Sec. (12.2-14.9) 02/28/17 06:55 INR 1.05 (0.87-1.13) 02/28/17 06:55 Sodium 143 mmol/L (137-145) 03/01/17 03:36 Potassium 3.7 mmol/L (3.6-5.0) 03/01/17 03:36 Chloride 104.7 mmol/L (98-107) 03/01/17 03:36 Carbon Dioxide 22 mmol/L (22-30) 03/01/17 03:36 Anion Gap 20 mmol/L 03/01/17 03:36 BUN 7 mg/dL (7-17) 03/01/17 03:36 Creatinine 0.7 mg/dL (0.7-1.2) 03/01/17 03:36 Estimated GFR > 60 ml/min 03/01/17 03:36 BUN/Creatinine Ratio 10.00 % 03/01/17 03:36 Glucose 147 mg/dL (65-100) H 03/01/17 03:36 POC Glucose 81 (70-105) 03/01/17 06:51 Lactic Acid 2.90 mmol/L (0.7-2.0) H* 02/28/17 09:36 Calcium 8.5 mg/dL (8.4-10.2) 03/01/17 03:36 Total Bilirubin 0.30 mg/dL (0.1-1.2) 02/28/17 06:41 AST 15 units/L (5-40) 02/28/17 06:41 ALT 13 units/L (7-56) 02/28/17 06:41 Alkaline Phosphatase 84 units/L (35-129) 02/28/17 06:41 Troponin T < 0.010 ng/mL (0.00-0.029) 02/28/17 06:55 Total Protein 7.9 g/dL (6.3-8.2) 02/28/17 06:41 Albumin 4.4 g/dL (3.9-5) 02/28/17 06:41 Albumin/Globulin Ratio 1.3 % 02/28/17 06:41 Urine Color Straw (Yellow) 02/28/17 07:55 Urine Turbidity Clear (Clear) 02/28/17 07:55 Urine pH 5.0 (5.0-7.0) 02/28/17 07:55 Ur Specific [place] 1.006 (1.003-1.030) 02/28/17 07:55 Urine Protein <15 mg/dl mg/dL (Negative) 02/28/17 07:55 Urine Glucose (UA) 150 mg/dL (Negative) 02/28/17 07:55 Urine Ketones Neg mg/dL (Negative) 02/28/17 07:55 Urine Blood Neg (Negative) 02/28/17 07:55 Urine Nitrite Neg (Negative) 02/28/17 07:55 Urine Bilirubin Neg (Negative) 02/28/17 07:55 Urine Urobilinogen < 2.0 mg/dL (<2.0) 02/28/17 07:55 Ur Leukocyte Esterase Neg (Negative) 02/28/17 07:55 Urine WBC (Auto) < 1.0 /HPF (0.0-6.0) 02/28/17 07:55 Urine RBC (Auto) 3.0 /HPF (0.0-6.0) 02/28/17 07:55 Urine Bacteria (Auto) 1+ /HPF (Negative) 02/28/17 07:55 Urine Opiates Screen Presumptive negative 02/28/17 07:55 Urine Methadone Screen Presumptive negative 02/28/17 07:55 Ur Barbiturates Screen Presumptive negative 02/28/17 07:55 Ur Phencyclidine Scrn Presumptive negative 02/28/17 07:55 Ur Amphetamines Screen Presumptive negative 02/28/17 07:55 U Benzodiazepines Scrn Presumptive negative 02/28/17 07:55 Urine Cocaine Screen Presumptive negative 02/28/17 07:55 U Marijuana (THC) Screen Presumptive negative 02/28/17 07:55 Drugs of Abuse Note Disclamer 02/28/17 07:55
--- NOTE | 2017-03-01 10:21 | Magnetic Resonance Report ---
MRI OF THE BRAIN WITHOUT CONTRAST: HISTORY: Altered mental status PROCEDURE: Multiplanar, multisequence MR imaging of the brain without IV contrast was performed. FINDINGS: Compared to the MR brain dated 12/27/[address] head dated 02/28/17. There are 2 subtle areas of diffusion restriction on today's exam. A 5 mm focus of weak diffusion restriction is identified in the lateral left thalamus on image 21. A second area of weak diffusion restriction is identified in the left christian radiata measuring 1.2 x 0.7 cm on image 23. There is no evidence for hemorrhage, mass or extra-axial fluid collection. Multiple, bilateral chronic lacunar infarcts in both basal ganglia and angel are again noted. Diffuse chronic white matter changes and cortical volume loss are stable. The midline structures are central. The basal cisterns are patent. Normal ventricular size. The orbital cavities and sella turcica demonstrate no abnormality. The visualized paranasal sinuses and mastoid air cells are well aerated. IMPRESSION: 2 small areas of subacute ischemia are suspected in the left thalamus and left christian radiata as outlined above. Other chronic findings as described.
[2017-03-01] MEDS: COZAAR PO SCH (11:34)
[2017-03-01] MEDS: LOVENOX SUB-Q SCH (11:34)
[2017-03-01] MEDS: HCTZ PO SCH (11:34)
[2017-03-01] MEDS: LOPRESSOR PO SCH ×2 (11:35→22:50)
[2017-03-01] MEDS: PLAVIX PO SCH (11:35)
[2017-03-01] MEDS: ASPIRIN PO SCH (11:35)
[2017-03-01] MEDS: ZOCOR PO SCH (22:50)
[2017-03-01] MEDS: LEVEMIR SUB-Q SCH (22:52)
[2017-03-02] MEDS: ZOSYN/NS 4.5GM/100ML 4.5 GM/100 ML VIAL IV SCH ×5 (00:23→23:47)
[2017-03-02 01:32] LABS: Anion Gap 21 mmol/L; BUN/Creatinine Ratio 14.28; Blood Urea Nitrogen 10 mg/dL (7-17); Carbon Dioxide 23 mmol/L (22-30); Chloride 104.5 mmol/L (98-107); Glucose 120 mg/dL (65-100); Potassium 3.8 mmol/L (3.6-5.0); Sodium 145 mmol/L (137-145)
[2017-03-02 01:41] LABS: Hematocrit 29.9 % (30.3-42.9); Hemoglobin 9.6 gm/dl (10.1-14.3); Mean Corpuscular HGB Conc 32 % (30-34); Platelet Count 259 K/mm3 (140-440); Red Cell Distribution Width 18.2 % (13.2-15.2); White Blood Count 8.4 K/mm3 (4.5-11.0)
[2017-03-02 01:44] LABS: Mean Corpuscular Hemoglobin 22 pg (28-32); Mean Corpuscular Volume 68 fl (79-97)
[2017-03-02] MEDS: NACL 0.9% 1000 ML 1,000 ML IV SCH (05:54)
--- NOTE | 2017-03-02 08:09 | Discharge Summary ---
Providers - Providers Date of Admission: 02/28/17 08:16 Attending physician: LILI CASTREJON 02/28/17 12:55 Physical Therapy Evaluation and Treat [CONS] Routine Comment: Reason For Exam: Hx of CVA 02/28/17 12:56 Occupational Therapy Evaluate and Treat [CONS] Routine Comment: Reason For Exam: Hx of CVA 03/02/17 07:21 Consult to Physician [CONS] Routine Consulting Provider: NABILA PARSONS Reason For Exam: cva Primary care physician: REGINALDO ACOSTA Hospitalization Condition: Fair Disposition: DC-30 STILL A PATIENT Exam - Constitutional Vitals: Temp Pulse Resp BP Pulse Ox 98.6 F 61 18 187/84 99 03/02/17 04:00 03/02/17 04:00 03/02/17 04:00 03/02/17 04:00 03/01/17 21:12 Plan Follow up with: REGINALDO ACOSTA MD [Primary Care Provider] - 3-5 Days
--- NOTE | 2017-03-02 08:11 | Progress Note ---
Assessment and Plan Assessment and plan: Acute metabolic encephalopathy Resolved. Patient currently oriented to person, place and time. Most likely due to sepsis and hypoglycemic state Patient might discharge tomorrow. Sepsis Hypothermia Blood and urine culture collected prior to antibiotic IV fluid resuscitation and continuous IVF Continue on empiric antibiotic treatment with Zosyn and vancomycin Lactic acidosis Resolved Most likely due to sepsis Diabetes mellitus Accu-Chek before meals and at bedtime Sliding scale insulin/NovoLog Hypertension Continue home antihypertensive medication HX of CVA CT of the head shows mild volume loss and chronic white matter changes.Multiple bilateral lacunar infarcts in the thalami and angel. No acute interacranial process noted MRI shows small areas of subacute ischemia are suspected that in the left, thalamus and left cornea. Echocardiogram and Carotid doppler WNL Physical therapy and occupational therapy on board DVT/ GI prophylaxis Lovenox/ Protonix History Interval history: Patient has uneventful overnight Hospitalist Physical - Constitutional Vitals: Temp Pulse Resp BP Pulse Ox 98.6 F 61 18 187/84 99 03/02/17 04:00 03/02/17 04:00 03/02/17 04:00 03/02/17 04:00 03/01/17 21:12 General appearance: Present: no acute distress, other (Alert and oriented to person,place and time.) - EENT Eyes: Present: PERRL ENT: hearing intact - Neck Neck: Present: supple - Respiratory Respiratory effort: normal Respiratory: bilateral: CTA - Cardiovascular Rhythm: regular Heart Sounds: Present: S1 & S2 - Extremities Extremities: no ischemia Extremity abnormal: other (right side weakness) Peripheral Pulses: within normal limits - Abdominal General gastrointestinal: soft, non-tender - Integumentary Integumentary: Present: clear, warm, dry - Psychiatric Psychiatric: appropriate mood/affect - Neurologic Neurologic: CNII-XII intact - Allied Health Allied health notes reviewed: nursing Results - Labs CBC & Chem 7: 03/02/17 00:55 03/02/17 00:55 Labs: Laboratory Last Values WBC 8.4 K/mm3 (4.5-11.0) 03/02/17 00:55 RBC 4.40 M/mm3 (3.65-5.03) 03/02/17 00:55 Hgb 9.6 gm/dl (10.1-14.3) L 03/02/17 00:55 Hct 29.9 % (30.3-42.9) L 03/02/17 00:55 MCV 68 fl (79-97) L 03/02/17 00:55 MCH 22 pg (28-32) L 03/02/17 00:55 MCHC 32 % (30-34) 03/02/17 00:55 RDW 18.2 % (13.2-15.2) H 03/02/17 00:55 Plt Count 259 K/mm3 (140-440) 03/02/17 00:55 Lymph % (Auto) 34.7 % (13.4-35.0) 03/01/17 03:36 [place] % (Auto) 8.2 % (0.0-7.3) H 03/01/17 03:36 Eos % (Auto) 3.3 % (0.0-4.3) 03/01/17 03:36 Baso % (Auto) 0.7 % (0.0-1.8) 03/01/17 03:36 Lymph # 2.8 K/mm3 (1.2-5.4) 03/01/17 03:36 [place] # 0.7 K/mm3 (0.0-0.8) 03/01/17 03:36 Eos # 0.3 K/mm3 (0.0-0.4) 03/01/17 03:36 Baso # 0.1 K/mm3 (0.0-0.1) 03/01/17 03:36 Seg Neutrophils % 53.1 % (40.0-70.0) 03/01/17 03:36 Seg Neutrophils # 4.3 K/mm3 (1.8-7.7) 03/01/17 03:36 PT 13.6 Sec. (12.2-14.9) 02/28/17 06:55 INR 1.05 (0.87-1.13) 02/28/17 06:55 Sodium 145 mmol/L (137-145) 03/02/17 00:55 Potassium 3.8 mmol/L (3.6-5.0) 03/02/17 00:55 Chloride 104.5 mmol/L (98-107) 03/02/17 00:55 Carbon Dioxide 23 mmol/L (22-30) 03/02/17 00:55 Anion Gap 21 mmol/L 03/02/17 00:55 BUN 10 mg/dL (7-17) 03/02/17 00:55 Creatinine 0.7 mg/dL (0.7-1.2) 03/02/17 00:55 Estimated GFR > 60 ml/min 03/02/17 00:55 BUN/Creatinine Ratio 14.28 % 03/02/17 00:55 Glucose 120 mg/dL (65-100) H 03/02/17 00:55 POC Glucose 79 (70-105) 03/02/17 06:58 Lactic Acid 2.90 mmol/L (0.7-2.0) H* 02/28/17 09:36 Calcium 9.0 mg/dL (8.4-10.2) 03/02/17 00:55 Total Bilirubin 0.30 mg/dL (0.1-1.2) 02/28/17 06:41 AST 15 units/L (5-40) 02/28/17 06:41 ALT 13 units/L (7-56) 02/28/17 06:41 Alkaline Phosphatase 84 units/L (35-129) 02/28/17 06:41 Troponin T < 0.010 ng/mL (0.00-0.029) 02/28/17 06:55 Total Protein 7.9 g/dL (6.3-8.2) 02/28/17 06:41 Albumin 4.4 g/dL (3.9-5) 02/28/17 06:41 Albumin/Globulin Ratio 1.3 % 02/28/17 06:41 Urine Color Straw (Yellow) 02/28/17 07:55 Urine Turbidity Clear (Clear) 02/28/17 07:55 Urine pH 5.0 (5.0-7.0) 02/28/17 07:55 Ur Specific [place] 1.006 (1.003-1.030) 02/28/17 07:55 Urine Protein <15 mg/dl mg/dL (Negative) 02/28/17 07:55 Urine Glucose (UA) 150 mg/dL (Negative) 02/28/17 07:55 Urine Ketones Neg mg/dL (Negative) 02/28/17 07:55 Urine Blood Neg (Negative) 02/28/17 07:55 Urine Nitrite Neg (Negative) 02/28/17 07:55 Urine Bilirubin Neg (Negative) 02/28/17 07:55 Urine Urobilinogen < 2.0 mg/dL (<2.0) 02/28/17 07:55 Ur Leukocyte Esterase Neg (Negative) 02/28/17 07:55 Urine WBC (Auto) < 1.0 /HPF (0.0-6.0) 02/28/17 07:55 Urine RBC (Auto) 3.0 /HPF (0.0-6.0) 02/28/17 07:55 Urine Bacteria (Auto) 1+ /HPF (Negative) 02/28/17 07:55 Urine Opiates Screen Presumptive negative 02/28/17 07:55 Urine Methadone Screen Presumptive negative 02/28/17 07:55 Ur Barbiturates Screen Presumptive negative 02/28/17 07:55 Ur Phencyclidine Scrn Presumptive negative 02/28/17 07:55 Ur Amphetamines Screen Presumptive negative 02/28/17 07:55 U Benzodiazepines Scrn Presumptive negative 02/28/17 07:55 Urine Cocaine Screen Presumptive negative 02/28/17 07:55 U Marijuana (THC) Screen Presumptive negative 02/28/17 07:55 Drugs of Abuse Note Disclamer 02/28/17 07:55
[2017-03-02] MEDS: GLUCOPHAGE PO SCH ×2 (08:24→17:40)
[2017-03-02] MEDS: PROTONIX PO SCH ×4 (08:26→21:41)
[2017-03-02] MEDS: HCTZ PO SCH (10:26)
[2017-03-02] MEDS: PLAVIX PO SCH (10:27)
[2017-03-02] MEDS: LOVENOX SUB-Q SCH (10:27)
[2017-03-02] MEDS: LOPRESSOR PO SCH ×2 (10:28→21:42)
[2017-03-02] MEDS: COZAAR PO SCH (10:28)
[2017-03-02] MEDS: ASPIRIN PO SCH (10:29)
[2017-03-02] MEDS: VANCOMYCIN/NS 1 GM/250 ML 1 GM/250 ML BAG IV SCH ×2 (10:29→18:19)
[2017-03-02] MEDS: NOVOLOG SUB-Q SCH ×3 (10:29→17:39)
--- NOTE | 2017-03-02 14:10 | Consultation ---
History of Present Illness - Reason for Consult Consult date: 03/02/17 stroke - History of Present Illness reviewed the MRI of the brain and the scan shows only small areas of thalamic ischemic infarcts... will study the images further likely this is HTN based thanks for consult Past History Past Medical History: diabetes, hypertension, hyperlipidemia, stroke Past Surgical History: Other (unable to assess) Family history: other (unable to assess) Medications and Allergies Allergies Allergy/AdvReac Type Severity Reaction Status Date / Time No Known Allergies Allergy Verified 12/26/14 15:33 Home Medications Medication Instructions Recorded Confirmed Last Taken Type Clopidogrel [Plavix] 75 mg PO QDAY 12/26/14 02/28/17 02/27/17 History Losartan [Cozaar] 50 mg PO QDAY 12/26/14 02/28/17 02/27/17 History Simvastatin [Zocor TAB] 20 mg PO QHS 12/26/14 02/28/17 02/27/17 History metFORMIN [Glucophage] 1,000 mg PO BID 12/26/14 02/28/17 02/27/17 History Metoprolol [Lopressor TAB] 50 mg PO BID #60 tablet 12/30/14 02/28/17 02/27/17 Rx Albuterol Sulfate [Ventolin HFA] 2 puff IH Q4H PRN 02/28/17 02/28/17 Unknown History Gabapentin [Neurontin] 600 mg PO Q8H 02/28/17 02/28/17 02/27/17 History Insulin Aspart Protam & Aspart 30 units SQ QPM 02/28/17 02/28/17 02/27/17 History [NovoLOG Mix 70-30 Flexpen] Insulin Aspart Protam & Aspart 40 units SQ QAM 02/28/17 02/28/17 02/27/17 History [NovoLOG Mix 70-30 Flexpen] amLODIPine [Norvasc] 5 mg PO DAILY 02/28/17 02/28/17 02/27/17 History Active Meds: Active Medications Acetaminophen (Tylenol) 650 mg PO Q4H PRN PRN Reason: Pain MILD(1-3)/Fever >100.5/HORTON Aspirin (Aspirin) 325 mg PO QDAY [facility] Last Admin: 03/02/17 10:29 Dose: 325 mg Bisacodyl (Dulcolax) 10 mg [place] QDAY PRN PRN Reason: Constipation unrelieved by LEOBARDO Clopidogrel Bisulfate (Plavix) 75 mg PO QDAY [facility] Last Admin: 03/02/17 10:27 Dose: 75 mg Dextrose (D50w (25gm)) 50 ml IV PRN PRN PRN Reason: Hypoglycemia Enoxaparin Sodium (Lovenox) 40 mg SUB-Q QDAY [facility] Last Admin: 03/02/17 10:27 Dose: 40 mg Hydrochlorothiazide (Hctz) 25 mg PO QDAY [facility] Last Admin: 03/02/17 10:26 Dose: 25 mg Sodium Chloride (Nacl 0.9% 1000 Ml) 1,000 mls @ 75 mls/hr IV DIRECT [facility] Last Admin: 03/02/17 05:54 Dose: 75 mls/hr Piperacillin Sod/Tazobactam Sod (Zosyn/Ns 4.5gm/100ml) 4.5 gm in 100 mls @ 200 mls/hr IV Q6HR [facility] Last Admin: 03/02/17 12:51 Dose: 200 mls/hr Vancomycin HCl (Vancomycin/Ns 1 Gm/250 Ml) 1 gm in 250 mls @ 166.667 mls/hr IV Q12H [facility] Last Admin: 03/02/17 10:29 Dose: 166.667 mls/hr Insulin Aspart (Novolog) 5 units SUB-Q TIDDIAB [facility] Last Admin: 03/02/17 13:07 Dose: 5 units Insulin Detemir (Levemir) 40 units SUB-Q QHS [facility] Last Admin: 03/01/17 22:52 Dose: 40 units Losartan Potassium (Cozaar) 50 mg PO QDAY [facility] Last Admin: 03/02/17 10:28 Dose: 50 mg Magnesium Hydroxide (Milk Of Magnesia) 30 ml PO Q4H PRN PRN Reason: Constipation Metformin HCl (Glucophage) 1,000 mg PO BIDDIAB [facility] Last Admin: 03/02/17 08:24 Dose: 1,000 mg Metoprolol Tartrate (Lopressor) 12.5 mg PO BID [facility] Last Admin: 03/02/17 10:28 Dose: 12.5 mg Ondansetron HCl (Zofran) 4 mg IV Q8H PRN PRN Reason: N/V unrelieved by Reglan Pantoprazole Sodium (Protonix) 20 mg PO ACHS [facility] Last Admin: 03/02/17 13:06 Dose: 20 mg Simvastatin (Zocor) 20 mg PO QHS [facility] Last Admin: 03/01/17 22:50 Dose: 20 mg Vancomycin HCl (Vancomycin Pharmacy To Dose) 1 each IV PKCONSULT [facility] PRN Reason: Protocol Exam - Constitutional Vitals: Temp Pulse Resp BP Pulse Ox 98.6 F 67 18 174/88 99 03/02/17 11:00 03/02/17 11:00 03/02/17 11:00 03/02/17 11:00 03/02/17 11:00 Results - Labs CBC & Chem 7: 03/02/17 00:55 03/02/17 00:55 Labs: Abnormal lab results 03/01/17 03/01/17 03/02/17 Range/Units 16:35 21:37 00:55 Hgb 9.6 L (10.1-14.3) gm/dl Hct 29.9 L (30.3-42.9) % MCV 68 L (79-97) fl MCH 22 L (28-32) pg RDW 18.2 H (13.2-15.2) % Glucose (65-100) mg/dL POC Glucose 176 H 138 H (70-105) 03/02/17 03/02/17 Range/Units 00:55 11:18 Hgb (10.1-14.3) gm/dl Hct (30.3-42.9) % MCV (79-97) fl MCH (28-32) pg RDW (13.2-15.2) % Glucose 120 H (65-100) mg/dL POC Glucose 123 H (70-105)
--- NOTE | 2017-03-02 14:34 | XRay Report ---
LEFT HIP, 2 views: History: Left hip pain. The bony architecture is intact without evidence of fracture or dislocation. No significant soft tissue abnormality is seen. IMPRESSION: Unremarkable left hip.
[2017-03-02] MEDS: ZOCOR PO SCH (21:42)
[2017-03-02] MEDS: LEVEMIR SUB-Q SCH (21:44)
[2017-03-03] MEDS: NACL 0.9% 1000 ML 1,000 ML IV SCH (04:44)
[2017-03-03] MEDS: ZOSYN/NS 4.5GM/100ML 4.5 GM/100 ML VIAL IV SCH ×3 (05:59→18:18)
[2017-03-03] MEDS: VANCOMYCIN/NS 1 GM/250 ML 1 GM/250 ML BAG IV SCH ×2 (07:17→18:24)
--- NOTE | 2017-03-03 08:19 | Discharge Summary ---
Providers - Providers Date of Admission: 02/28/17 08:16 Attending physician: YOGI ALMARAZ 02/28/17 12:55 Physical Therapy Evaluation and Treat [CONS] Routine Comment: Reason For Exam: Hx of CVA 02/28/17 12:56 Occupational Therapy Evaluate and Treat [CONS] Routine Comment: Reason For Exam: Hx of CVA 03/02/17 07:21 Consult to Physician [CONS] Routine Consulting Provider: NABILA PARSONS Reason For Exam: cva Place consult to:: DR. PARSONS Notified:: OFFICE Phone number called:: [phone] Was contact made?: Yes If yes, spoke with:: CLEO Time called:: 09:19 Comment:: RAMIN NOTIFIED 03/02/17 14:14 Speech Therapy Evaluation and Treat [CONS] Urgent Reason For Exam: CVA Primary care physician: REGINALDO ACOSTA Hospitalization Condition: Fair Disposition: DC-30 STILL A PATIENT Exam - Constitutional Vitals: Temp Pulse Resp BP Pulse Ox 98.3 F 66 20 158/76 97 03/03/17 04:00 03/03/17 04:00 03/03/17 04:00 03/03/17 04:00 03/03/17 00:00 Plan Follow up with: REGINALDO ACOSTA MD [Primary Care Provider] - 3-5 Days Prescriptions: Insulin Aspart Protam & Aspart [NovoLOG Mix 70-30 Flexpen] 30 units SQ BID #10 [email or web address]
[2017-03-03] MEDS: GLUCOPHAGE PO SCH ×2 (08:43→18:19)
[2017-03-03] MEDS: PROTONIX PO SCH ×4 (08:43→21:15)
[2017-03-03] MEDS: NOVOLOG SUB-Q SCH ×3 (08:43→18:19)
[2017-03-03] MEDS: LOVENOX SUB-Q SCH (10:07)
[2017-03-03] MEDS: COZAAR PO SCH (10:07)
[2017-03-03] MEDS: ASPIRIN PO SCH (10:08)
[2017-03-03] MEDS: LOPRESSOR PO SCH ×2 (10:08→21:15)
[2017-03-03] MEDS: HCTZ PO SCH (10:08)
[2017-03-03] MEDS: PLAVIX PO SCH (10:08)
[2017-03-03] MEDS ORDERED: LEVEMIR SUB-Q ONE (11:00)
--- NOTE | 2017-03-03 14:17 | Progress Note ---
<LILI CASTREJON R - Last Filed: 03/04/17 09:59> Assessment and Plan Assessment and plan: I saw and evaluated the patient. I agree with the findings and the plan of care as documented in the Nurse Practitioner's~note, with the following corrections and additions. Hospitalist Physical - Constitutional Vitals: Temp Pulse Resp BP Pulse Ox 98.5 F 68 16 168/56 98 03/04/17 08:00 03/04/17 08:00 03/04/17 08:00 03/04/17 08:00 03/04/17 08:00 Results - Labs CBC & Chem 7: 03/02/17 00:55 03/02/17 00:55 Labs: Laboratory Last Values WBC 8.4 K/mm3 (4.5-11.0) 03/02/17 00:55 RBC 4.40 M/mm3 (3.65-5.03) 03/02/17 00:55 Hgb 9.6 gm/dl (10.1-14.3) L 03/02/17 00:55 Hct 29.9 % (30.3-42.9) L 03/02/17 00:55 MCV 68 fl (79-97) L 03/02/17 00:55 MCH 22 pg (28-32) L 03/02/17 00:55 MCHC 32 % (30-34) 03/02/17 00:55 RDW 18.2 % (13.2-15.2) H 03/02/17 00:55 Plt Count 259 K/mm3 (140-440) 03/02/17 00:55 Lymph % (Auto) 34.7 % (13.4-35.0) 03/01/17 03:36 [place] % (Auto) 8.2 % (0.0-7.3) H 03/01/17 03:36 Eos % (Auto) 3.3 % (0.0-4.3) 03/01/17 03:36 Baso % (Auto) 0.7 % (0.0-1.8) 03/01/17 03:36 Lymph # 2.8 K/mm3 (1.2-5.4) 03/01/17 03:36 [place] # 0.7 K/mm3 (0.0-0.8) 03/01/17 03:36 Eos # 0.3 K/mm3 (0.0-0.4) 03/01/17 03:36 Baso # 0.1 K/mm3 (0.0-0.1) 03/01/17 03:36 Seg Neutrophils % 53.1 % (40.0-70.0) 03/01/17 03:36 Seg Neutrophils # 4.3 K/mm3 (1.8-7.7) 03/01/17 03:36 PT 13.6 Sec. (12.2-14.9) 02/28/17 06:55 INR 1.05 (0.87-1.13) 02/28/17 06:55 Sodium 145 mmol/L (137-145) 03/02/17 00:55 Potassium 3.8 mmol/L (3.6-5.0) 03/02/17 00:55 Chloride 104.5 mmol/L (98-107) 03/02/17 00:55 Carbon Dioxide 23 mmol/L (22-30) 03/02/17 00:55 Anion Gap 21 mmol/L 03/02/17 00:55 BUN 10 mg/dL (7-17) 03/02/17 00:55 Creatinine 0.7 mg/dL (0.7-1.2) 03/02/17 00:55 Estimated GFR > 60 ml/min 03/02/17 00:55 BUN/Creatinine Ratio 14.28 % 03/02/17 00:55 Glucose 120 mg/dL (65-100) H 03/02/17 00:55 POC Glucose 146 (70-105) H 03/04/17 05:39 Lactic Acid 1.90 mmol/L (0.7-2.0) 03/03/17 04:35 Calcium 9.0 mg/dL (8.4-10.2) 03/02/17 00:55 Total Bilirubin 0.30 mg/dL (0.1-1.2) 02/28/17 06:41 AST 15 units/L (5-40) 02/28/17 06:41 ALT 13 units/L (7-56) 02/28/17 06:41 Alkaline Phosphatase 84 units/L (35-129) 02/28/17 06:41 Troponin T < 0.010 ng/mL (0.00-0.029) 02/28/17 06:55 Total Protein 7.9 g/dL (6.3-8.2) 02/28/17 06:41 Albumin 4.4 g/dL (3.9-5) 02/28/17 06:41 Albumin/Globulin Ratio 1.3 % 02/28/17 06:41 Urine Color Straw (Yellow) 02/28/17 07:55 Urine Turbidity Clear (Clear) 02/28/17 07:55 Urine pH 5.0 (5.0-7.0) 02/28/17 07:55 Ur Specific [place] 1.006 (1.003-1.030) 02/28/17 07:55 Urine Protein <15 mg/dl mg/dL (Negative) 02/28/17 07:55 Urine Glucose (UA) 150 mg/dL (Negative) 02/28/17 07:55 Urine Ketones Neg mg/dL (Negative) 02/28/17 07:55 Urine Blood Neg (Negative) 02/28/17 07:55 Urine Nitrite Neg (Negative) 02/28/17 07:55 Urine Bilirubin Neg (Negative) 02/28/17 07:55 Urine Urobilinogen < 2.0 mg/dL (<2.0) 02/28/17 07:55 Ur Leukocyte Esterase Neg (Negative) 02/28/17 07:55 Urine WBC (Auto) < 1.0 /HPF (0.0-6.0) 02/28/17 07:55 Urine RBC (Auto) 3.0 /HPF (0.0-6.0) 02/28/17 07:55 Urine Bacteria (Auto) 1+ /HPF (Negative) 02/28/17 07:55 Urine Opiates Screen Presumptive negative 02/28/17 07:55 Urine Methadone Screen Presumptive negative 02/28/17 07:55 Ur Barbiturates Screen Presumptive negative 02/28/17 07:55 Ur Phencyclidine Scrn Presumptive negative 02/28/17 07:55 Ur Amphetamines Screen Presumptive negative 02/28/17 07:55 U Benzodiazepines Scrn Presumptive negative 02/28/17 07:55 Urine Cocaine Screen Presumptive negative 02/28/17 07:55 U Marijuana (THC) Screen Presumptive negative 02/28/17 07:55 Drugs of Abuse Note Disclamer 02/28/17 07:55 <JAYDA SWANSON - Last Filed: 03/10/17 07:23> Assessment and Plan Assessment and plan: Acute metabolic encephalopathy Resolved. Patient currently oriented to person, place and time. Most likely due to sepsis and hypoglycemic state Patient awaiting for SNF placement. Sepsis Hypothermia Blood and urine culture collected prior to antibiotic IV fluid resuscitation and continuous IVF Continue on empiric antibiotic treatment with Zosyn and vancomycin Lactic acidosis Resolved Most likely due to sepsis Diabetes mellitus Accu-Chek before meals and at bedtime Sliding scale insulin/NovoLog Started on [id number] Hypertension Continue home antihypertensive medication HX of CVA CT of the head shows mild volume loss and chronic white matter changes.Multiple bilateral lacunar infarcts in the thalami and angel. No acute interacranial process noted MRI shows small areas of subacute ischemia are suspected that in the left, thalamus and left cornea. Echocardiogram and Carotid doppler WNL Physical therapy and occupational therapy on board Neurology consulted DVT/ GI prophylaxis Lovenox/ Protonix History Interval history: Patient has uneventful overnight Hospitalist Physical - Constitutional Vitals: Temp Pulse Resp BP Pulse Ox 97.9 F 61 18 152/74 98 03/03/17 11:00 03/03/17 11:00 03/03/17 11:00 03/03/17 11:00 03/03/17 11:00 General appearance: Present: no acute distress, other (Alert and oriented to person,place and time.) - EENT Eyes: Present: PERRL ENT: hearing intact - Neck Neck: Present: supple - Respiratory Respiratory effort: normal Respiratory: bilateral: CTA - Cardiovascular Heart rate: 61 Rhythm: regular - Extremities Extremities: no ischemia Peripheral Pulses: within normal limits - Abdominal General gastrointestinal: soft, non-tender - Integumentary Integumentary: Present: clear, warm, dry - Psychiatric Psychiatric: appropriate mood/affect - Neurologic Neurologic: moves all extremities, other (unsteady gait) - Allied Health Allied health notes reviewed: nursing Results - Labs CBC & Chem 7: 03/05/17 04:44 03/05/17 04:44 Labs: Laboratory Last Values WBC 8.4 K/mm3 (4.5-11.0) 03/02/17 00:55 RBC 4.40 M/mm3 (3.65-5.03) 03/02/17 00:55 Hgb 9.6 gm/dl (10.1-14.3) L 03/02/17 00:55 Hct 29.9 % (30.3-42.9) L 03/02/17 00:55 MCV 68 fl (79-97) L 03/02/17 00:55 MCH 22 pg (28-32) L 03/02/17 00:55 MCHC 32 % (30-34) 03/02/17 00:55 RDW 18.2 % (13.2-15.2) H 03/02/17 00:55 Plt Count 259 K/mm3 (140-440) 03/02/17 00:55 Lymph % (Auto) 34.7 % (13.4-35.0) 03/01/17 03:36 [place] % (Auto) 8.2 % (0.0-7.3) H 03/01/17 03:36 Eos % (Auto) 3.3 % (0.0-4.3) 03/01/17 03:36 Baso % (Auto) 0.7 % (0.0-1.8) 03/01/17 03:36 Lymph # 2.8 K/mm3 (1.2-5.4) 03/01/17 03:36 [place] # 0.7 K/mm3 (0.0-0.8) 03/01/17 03:36 Eos # 0.3 K/mm3 (0.0-0.4) 03/01/17 03:36 Baso # 0.1 K/mm3 (0.0-0.1) 03/01/17 03:36 Seg Neutrophils % 53.1 % (40.0-70.0) 03/01/17 03:36 Seg Neutrophils # 4.3 K/mm3 (1.8-7.7) 03/01/17 03:36 PT 13.6 Sec. (12.2-14.9) 02/28/17 06:55 INR 1.05 (0.87-1.13) 02/28/17 06:55 Sodium 145 mmol/L (137-145) 03/02/17 00:55 Potassium 3.8 mmol/L (3.6-5.0) 03/02/17 00:55 Chloride 104.5 mmol/L (98-107) 03/02/17 00:55 Carbon Dioxide 23 mmol/L (22-30) 03/02/17 00:55 Anion Gap 21 mmol/L 03/02/17 00:55 BUN 10 mg/dL (7-17) 03/02/17 00:55 Creatinine 0.7 mg/dL (0.7-1.2) 03/02/17 00:55 Estimated GFR > 60 ml/min 03/02/17 00:55 BUN/Creatinine Ratio 14.28 % 03/02/17 00:55 Glucose 120 mg/dL (65-100) H 03/02/17 00:55 POC Glucose 208 (70-105) H 03/03/17 06:55 Lactic Acid 1.90 mmol/L (0.7-2.0) 03/03/17 04:35 Calcium 9.0 mg/dL (8.4-10.2) 03/02/17 00:55 Total Bilirubin 0.30 mg/dL (0.1-1.2) 02/28/17 06:41 AST 15 units/L (5-40) 02/28/17 06:41 ALT 13 units/L (7-56) 02/28/17 06:41 Alkaline Phosphatase 84 units/L (35-129) 02/28/17 06:41 Troponin T < 0.010 ng/mL (0.00-0.029) 02/28/17 06:55 Total Protein 7.9 g/dL (6.3-8.2) 02/28/17 06:41 Albumin 4.4 g/dL (3.9-5) 02/28/17 06:41 Albumin/Globulin Ratio 1.3 % 02/28/17 06:41 Urine Color Straw (Yellow) 02/28/17 07:55 Urine Turbidity Clear (Clear) 02/28/17 07:55 Urine pH 5.0 (5.0-7.0) 02/28/17 07:55 Ur Specific [place] 1.006 (1.003-1.030) 02/28/17 07:55 Urine Protein <15 mg/dl mg/dL (Negative) 02/28/17 07:55 Urine Glucose (UA) 150 mg/dL (Negative) 02/28/17 07:55 Urine Ketones Neg mg/dL (Negative) 02/28/17 07:55 Urine Blood Neg (Negative) 02/28/17 07:55 Urine Nitrite Neg (Negative) 02/28/17 07:55 Urine Bilirubin Neg (Negative) 02/28/17 07:55 Urine Urobilinogen < 2.0 mg/dL (<2.0) 02/28/17 07:55 Ur Leukocyte Esterase Neg (Negative) 02/28/17 07:55 Urine WBC (Auto) < 1.0 /HPF (0.0-6.0) 02/28/17 07:55 Urine RBC (Auto) 3.0 /HPF (0.0-6.0) 02/28/17 07:55 Urine Bacteria (Auto) 1+ /HPF (Negative) 02/28/17 07:55 Urine Opiates Screen Presumptive negative 02/28/17 07:55 Urine Methadone Screen Presumptive negative 02/28/17 07:55 Ur Barbiturates Screen Presumptive negative 02/28/17 07:55 Ur Phencyclidine Scrn Presumptive negative 02/28/17 07:55 Ur Amphetamines Screen Presumptive negative 02/28/17 07:55 U Benzodiazepines Scrn Presumptive negative 02/28/17 07:55 Urine Cocaine Screen Presumptive negative 02/28/17 07:55 U Marijuana (THC) Screen Presumptive negative 02/28/17 07:55 Drugs of Abuse Note Disclamer 02/28/17 07:55
[2017-03-03] MEDS: ZOCOR PO SCH (21:15)
[2017-03-04] MEDS: ZOSYN/NS 4.5GM/100ML 4.5 GM/100 ML VIAL IV SCH ×4 (00:37→17:04)
[2017-03-04] MEDS: NACL 0.9% 1000 ML 1,000 ML IV SCH (06:11)
[2017-03-04] MEDS: VANCOMYCIN/NS 1 GM/250 ML 1 GM/250 ML BAG IV SCH ×2 (07:02→18:46)
[2017-03-04] MEDS: NOVOLOG SUB-Q SCH ×3 (08:00→17:08)
[2017-03-04] MEDS: GLUCOPHAGE PO SCH ×2 (08:30→17:13)
--- NOTE | 2017-03-04 10:04 | Progress Note ---
Assessment and Plan Assessment and plan: Acute metabolic encephalopathy Resolved. Patient currently oriented to person, place and time. Most likely due to sepsis and hypoglycemic state Patient awaiting for SNF placement. Sepsis Hypothermia Blood and urine culture collected prior to antibiotic IV fluid resuscitation and continuous IVF Continue on empiric antibiotic treatment with Zosyn and vancomycin Lactic acidosis Resolved Most likely due to sepsis Diabetes mellitus Accu-Chek before meals and at bedtime Sliding scale insulin/NovoLog Started on [id number] Hypertension Increase losartan 100 mg daily HX of CVA CT of the head shows mild volume loss and chronic white matter changes. 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 No acute interacranial process noted MRI shows small areas of subacute ischemia are suspected that in the left, thalamus and left cornea. Echocardiogram and Carotid doppler WNL Physical therapy and occupational therapy on board Neurology following. Etiology likely secondary to hypertension. DVT/ GI prophylaxis Lovenox/ Protonix History Interval history: No new issues overnight. Patient is sleeping comfortably. Hospitalist Physical - Constitutional Vitals: Temp Pulse Resp BP Pulse Ox 98.5 F 68 16 168/56 98 03/04/17 08:00 03/04/17 08:00 03/04/17 08:00 03/04/17 08:00 03/04/17 08:00 General appearance: Present: no acute distress, other (Alert and oriented to person,place and time.) - EENT Eyes: Present: PERRL, EOM intact ENT: hearing intact, clear oral mucosa, dentition normal - Neck Neck: Present: supple, normal ROM - Respiratory Respiratory effort: normal Respiratory: bilateral: CTA - Cardiovascular Rhythm: regular Heart Sounds: Present: S1 & S2. Absent: gallop, rub - Extremities Extremities: no ischemia, No edema, Full ROM - Abdominal General gastrointestinal: soft, non-tender, non-distended, normal bowel sounds - Integumentary Integumentary: Present: clear, warm, dry - Neurologic Neurologic: CNII-XII intact, moves all extremities Results - Labs CBC & Chem 7: 03/02/17 00:55 03/02/17 00:55 Labs: Laboratory Last Values WBC 8.4 K/mm3 (4.5-11.0) 03/02/17 00:55 RBC 4.40 M/mm3 (3.65-5.03) 03/02/17 00:55 Hgb 9.6 gm/dl (10.1-14.3) L 03/02/17 00:55 Hct 29.9 % (30.3-42.9) L 03/02/17 00:55 MCV 68 fl (79-97) L 03/02/17 00:55 MCH 22 pg (28-32) L 03/02/17 00:55 MCHC 32 % (30-34) 03/02/17 00:55 RDW 18.2 % (13.2-15.2) H 03/02/17 00:55 Plt Count 259 K/mm3 (140-440) 03/02/17 00:55 Lymph % (Auto) 34.7 % (13.4-35.0) 03/01/17 03:36 [place] % (Auto) 8.2 % (0.0-7.3) H 03/01/17 03:36 Eos % (Auto) 3.3 % (0.0-4.3) 03/01/17 03:36 Baso % (Auto) 0.7 % (0.0-1.8) 03/01/17 03:36 Lymph # 2.8 K/mm3 (1.2-5.4) 03/01/17 03:36 [place] # 0.7 K/mm3 (0.0-0.8) 03/01/17 03:36 Eos # 0.3 K/mm3 (0.0-0.4) 03/01/17 03:36 Baso # 0.1 K/mm3 (0.0-0.1) 03/01/17 03:36 Seg Neutrophils % 53.1 % (40.0-70.0) 03/01/17 03:36 Seg Neutrophils # 4.3 K/mm3 (1.8-7.7) 03/01/17 03:36 PT 13.6 Sec. (12.2-14.9) 02/28/17 06:55 INR 1.05 (0.87-1.13) 02/28/17 06:55 Sodium 145 mmol/L (137-145) 03/02/17 00:55 Potassium 3.8 mmol/L (3.6-5.0) 03/02/17 00:55 Chloride 104.5 mmol/L (98-107) 03/02/17 00:55 Carbon Dioxide 23 mmol/L (22-30) 03/02/17 00:55 Anion Gap 21 mmol/L 03/02/17 00:55 BUN 10 mg/dL (7-17) 03/02/17 00:55 Creatinine 0.7 mg/dL (0.7-1.2) 03/02/17 00:55 Estimated GFR > 60 ml/min 03/02/17 00:55 BUN/Creatinine Ratio 14.28 % 03/02/17 00:55 Glucose 120 mg/dL (65-100) H 03/02/17 00:55 POC Glucose 146 (70-105) H 03/04/17 05:39 Lactic Acid 1.90 mmol/L (0.7-2.0) 03/03/17 04:35 Calcium 9.0 mg/dL (8.4-10.2) 03/02/17 00:55 Total Bilirubin 0.30 mg/dL (0.1-1.2) 02/28/17 06:41 AST 15 units/L (5-40) 02/28/17 06:41 ALT 13 units/L (7-56) 02/28/17 06:41 Alkaline Phosphatase 84 units/L (35-129) 02/28/17 06:41 Troponin T < 0.010 ng/mL (0.00-0.029) 02/28/17 06:55 Total Protein 7.9 g/dL (6.3-8.2) 02/28/17 06:41 Albumin 4.4 g/dL (3.9-5) 02/28/17 06:41 Albumin/Globulin Ratio 1.3 % 02/28/17 06:41 Urine Color Straw (Yellow) 02/28/17 07:55 Urine Turbidity Clear (Clear) 02/28/17 07:55 Urine pH 5.0 (5.0-7.0) 02/28/17 07:55 Ur Specific [place] 1.006 (1.003-1.030) 02/28/17 07:55 Urine Protein <15 mg/dl mg/dL (Negative) 02/28/17 07:55 Urine Glucose (UA) 150 mg/dL (Negative) 02/28/17 07:55 Urine Ketones Neg mg/dL (Negative) 02/28/17 07:55 Urine Blood Neg (Negative) 02/28/17 07:55 Urine Nitrite Neg (Negative) 02/28/17 07:55 Urine Bilirubin Neg (Negative) 02/28/17 07:55 Urine Urobilinogen < 2.0 mg/dL (<2.0) 02/28/17 07:55 Ur Leukocyte Esterase Neg (Negative) 02/28/17 07:55 Urine WBC (Auto) < 1.0 /HPF (0.0-6.0) 02/28/17 07:55 Urine RBC (Auto) 3.0 /HPF (0.0-6.0) 02/28/17 07:55 Urine Bacteria (Auto) 1+ /HPF (Negative) 02/28/17 07:55 Urine Opiates Screen Presumptive negative 02/28/17 07:55 Urine Methadone Screen Presumptive negative 02/28/17 07:55 Ur Barbiturates Screen Presumptive negative 02/28/17 07:55 Ur Phencyclidine Scrn Presumptive negative 02/28/17 07:55 Ur Amphetamines Screen Presumptive negative 02/28/17 07:55 U Benzodiazepines Scrn Presumptive negative 02/28/17 07:55 Urine Cocaine Screen Presumptive negative 02/28/17 07:55 U Marijuana (THC) Screen Presumptive negative 02/28/17 07:55 Drugs of Abuse Note Disclamer 02/28/17 07:55
[2017-03-04] MEDS: LOVENOX SUB-Q SCH (10:35)
[2017-03-04] MEDS: HCTZ PO SCH (10:35)
[2017-03-04] MEDS: LOPRESSOR PO SCH ×2 (10:36→22:48)
[2017-03-04] MEDS: PLAVIX PO SCH (10:36)
[2017-03-04] MEDS: ASPIRIN PO SCH (10:36)
[2017-03-04] MEDS: PROTONIX PO SCH ×4 (10:45→22:48)
[2017-03-04] MEDS: COZAAR PO SCH (19:22)
[2017-03-04] MEDS: ZOCOR PO SCH (22:48)
[2017-03-05] MEDS: ZOSYN/NS 4.5GM/100ML 4.5 GM/100 ML VIAL IV SCH ×4 (00:16→17:22)
[2017-03-05] MEDS: NACL 0.9% 1000 ML 1,000 ML IV SCH ×2 (00:17→13:01)
[2017-03-05 05:09] LABS: Basophils % (Auto) 0.6 % (0.0-1.8); Eosinophils % (Auto) 5.4 % (0.0-4.3); Hematocrit 29.8 % (30.3-42.9); Hemoglobin 9.6 gm/dl (10.1-14.3); Mean Corpuscular HGB Conc 32 % (30-34); Platelet Count 239 K/mm3 (140-440); Red Cell Distribution Width 18.3 % (13.2-15.2); White Blood Count 7.8 K/mm3 (4.5-11.0)
[2017-03-05 05:10] LABS: Mean Corpuscular Hemoglobin 22 pg (28-32); Mean Corpuscular Volume 68 fl (79-97)
[2017-03-05 05:21] LABS: Anion Gap 19 mmol/L; BUN/Creatinine Ratio 11.25; Blood Urea Nitrogen 9 mg/dL (7-17); Calcium 8.8 mg/dL (8.4-10.2); Carbon Dioxide 24 mmol/L (22-30); Chloride 102.2 mmol/L (98-107); Glucose 284 mg/dL (65-100); Potassium 3.5 mmol/L (3.6-5.0); Sodium 142 mmol/L (137-145)
[2017-03-05] MEDS: VANCOMYCIN/NS 1 GM/250 ML 1 GM/250 ML BAG IV SCH ×2 (05:49→22:38)
[2017-03-05] MEDS: GLUCOPHAGE PO SCH ×2 (08:58→17:05)
[2017-03-05] MEDS: PROTONIX PO SCH ×4 (08:58→22:38)
[2017-03-05] MEDS: NOVOLOG SUB-Q SCH ×3 (08:59→17:11)
[2017-03-05] MEDS ORDERED: PROAIR IH PRN (09:58)
--- NOTE | 2017-03-05 10:00 | Progress Note ---
Assessment and Plan Assessment and plan: Acute metabolic encephalopathy Resolved. Patient currently oriented to person, place and time. Most likely due to sepsis and hypoglycemic state Patient awaiting for SNF placement. Sepsis Hypothermia Blood and urine culture collected prior to antibiotic IV fluid resuscitation and continuous IVF Continue on empiric antibiotic treatment with Zosyn and vancomycin Lactic acidosis Resolved Most likely due to sepsis Diabetes mellitus Accu-Chek before meals and at bedtime Sliding scale insulin Increase insulin 70/30 to 20 units twice a day Accelerated Hypertension Continue losartan at home medication of Norvasc. HX of CVA CT of the head shows mild volume loss and chronic white matter changes. 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 No acute interacranial process noted MRI shows small areas of subacute ischemia are suspected that in the left, thalamus and left cornea. Echocardiogram and Carotid doppler WNL Physical therapy and occupational therapy on board Neurology following. Etiology likely secondary to hypertension. DVT/ GI prophylaxis Lovenox/ Protonix History Interval history: No new issues overnight. Hospitalist Physical - Constitutional Vitals: Temp Pulse Resp BP Pulse Ox 98.1 F 98 H 18 172/84 97 03/05/17 08:00 03/05/17 08:00 03/05/17 08:00 03/05/17 08:00 03/05/17 08:00 General appearance: Present: no acute distress, other (Alert and oriented to person,place and time.) - EENT Eyes: Present: PERRL, EOM intact ENT: hearing intact, clear oral mucosa, dentition normal - Neck Neck: Present: supple, normal ROM - Respiratory Respiratory effort: normal Respiratory: bilateral: CTA - Cardiovascular Rhythm: regular Heart Sounds: Present: S1 & S2. Absent: gallop, rub - Extremities Extremities: no ischemia, No edema, Full ROM - Abdominal General gastrointestinal: soft, non-tender, non-distended, normal bowel sounds - Integumentary Integumentary: Present: clear, warm, dry - Neurologic Neurologic: CNII-XII intact, moves all extremities Results - Labs CBC & Chem 7: 03/05/17 04:44 03/05/17 04:44 Labs: Laboratory Last Values WBC 7.8 K/mm3 (4.5-11.0) 03/05/17 04:44 RBC 4.40 M/mm3 (3.65-5.03) 03/05/17 04:44 Hgb 9.6 gm/dl (10.1-14.3) L 03/05/17 04:44 Hct 29.8 % (30.3-42.9) L 03/05/17 04:44 MCV 68 fl (79-97) L 03/05/17 04:44 MCH 22 pg (28-32) L 03/05/17 04:44 MCHC 32 % (30-34) 03/05/17 04:44 RDW 18.3 % (13.2-15.2) H 03/05/17 04:44 Plt Count 239 K/mm3 (140-440) 03/05/17 04:44 Lymph % (Auto) 33.6 % (13.4-35.0) 03/05/17 04:44 [place] % (Auto) 8.5 % (0.0-7.3) H 03/05/17 04:44 Eos % (Auto) 5.4 % (0.0-4.3) H 03/05/17 04:44 Baso % (Auto) 0.6 % (0.0-1.8) 03/05/17 04:44 Lymph # 2.6 K/mm3 (1.2-5.4) 03/05/17 04:44 [place] # 0.7 K/mm3 (0.0-0.8) 03/05/17 04:44 Eos # 0.4 K/mm3 (0.0-0.4) 03/05/17 04:44 Baso # 0.1 K/mm3 (0.0-0.1) 03/05/17 04:44 Seg Neutrophils % 51.9 % (40.0-70.0) 03/05/17 04:44 Seg Neutrophils # 4.0 K/mm3 (1.8-7.7) 03/05/17 04:44 PT 13.6 Sec. (12.2-14.9) 02/28/17 06:55 INR 1.05 (0.87-1.13) 02/28/17 06:55 Sodium 142 mmol/L (137-145) 03/05/17 04:44 Potassium 3.5 mmol/L (3.6-5.0) L 03/05/17 04:44 Chloride 102.2 mmol/L (98-107) 03/05/17 04:44 Carbon Dioxide 24 mmol/L (22-30) 03/05/17 04:44 Anion Gap 19 mmol/L 03/05/17 04:44 BUN 9 mg/dL (7-17) 03/05/17 04:44 Creatinine 0.8 mg/dL (0.7-1.2) 03/05/17 04:44 Estimated GFR > 60 ml/min 03/05/17 04:44 BUN/Creatinine Ratio 11.25 % 03/05/17 04:44 Glucose 284 mg/dL (65-100) H 03/05/17 04:44 POC Glucose 256 (70-105) H 03/05/17 06:53 Lactic Acid 1.90 mmol/L (0.7-2.0) 03/03/17 04:35 Calcium 8.8 mg/dL (8.4-10.2) 03/05/17 04:44 Total Bilirubin 0.30 mg/dL (0.1-1.2) 02/28/17 06:41 AST 15 units/L (5-40) 02/28/17 06:41 ALT 13 units/L (7-56) 02/28/17 06:41 Alkaline Phosphatase 84 units/L (35-129) 02/28/17 06:41 Troponin T < 0.010 ng/mL (0.00-0.029) 02/28/17 06:55 Total Protein 7.9 g/dL (6.3-8.2) 02/28/17 06:41 Albumin 4.4 g/dL (3.9-5) 02/28/17 06:41 Albumin/Globulin Ratio 1.3 % 02/28/17 06:41 Urine Color Straw (Yellow) 02/28/17 07:55 Urine Turbidity Clear (Clear) 02/28/17 07:55 Urine pH 5.0 (5.0-7.0) 02/28/17 07:55 Ur Specific [place] 1.006 (1.003-1.030) 02/28/17 07:55 Urine Protein <15 mg/dl mg/dL (Negative) 02/28/17 07:55 Urine Glucose (UA) 150 mg/dL (Negative) 02/28/17 07:55 Urine Ketones Neg mg/dL (Negative) 02/28/17 07:55 Urine Blood Neg (Negative) 02/28/17 07:55 Urine Nitrite Neg (Negative) 02/28/17 07:55 Urine Bilirubin Neg (Negative) 02/28/17 07:55 Urine Urobilinogen < 2.0 mg/dL (<2.0) 02/28/17 07:55 Ur Leukocyte Esterase Neg (Negative) 02/28/17 07:55 Urine WBC (Auto) < 1.0 /HPF (0.0-6.0) 02/28/17 07:55 Urine RBC (Auto) 3.0 /HPF (0.0-6.0) 02/28/17 07:55 Urine Bacteria (Auto) 1+ /HPF (Negative) 02/28/17 07:55 Vancomycin Trough 17.7 ug/mL (5.0-20.0) 03/05/17 04:44 Urine Opiates Screen Presumptive negative 02/28/17 07:55 Urine Methadone Screen Presumptive negative 02/28/17 07:55 Ur Barbiturates Screen Presumptive negative 02/28/17 07:55 Ur Phencyclidine Scrn Presumptive negative 02/28/17 07:55 Ur Amphetamines Screen Presumptive negative 02/28/17 07:55 U Benzodiazepines Scrn Presumptive negative 02/28/17 07:55 Urine Cocaine Screen Presumptive negative 02/28/17 07:55 U Marijuana (THC) Screen Presumptive negative 02/28/17 07:55 Drugs of Abuse Note Disclamer 02/28/17 07:55
[2017-03-05] MEDS ORDERED: PROVENTIL IH PRN (10:06)
[2017-03-05] MEDS: LOVENOX SUB-Q SCH (10:22)
[2017-03-05] MEDS: NEURONTIN PO SCH ×2 (10:22→17:21)
[2017-03-05] MEDS: PLAVIX PO SCH (10:22)
[2017-03-05] MEDS: HCTZ PO SCH (10:22)
[2017-03-05] MEDS: NORVASC PO SCH (10:23)
[2017-03-05] MEDS: LOPRESSOR PO SCH ×2 (10:24→22:39)
[2017-03-05] MEDS: ASPIRIN PO SCH (10:30)
[2017-03-05] MEDS: COZAAR PO SCH (10:30)
[2017-03-05] MEDS: ZOCOR PO SCH (22:38)
[2017-03-06] MEDS: ZOSYN/NS 4.5GM/100ML 4.5 GM/100 ML VIAL IV SCH ×3 (01:15→14:11)
[2017-03-06] MEDS: NACL 0.9% 1000 ML 1,000 ML IV SCH ×2 (03:55→18:34)
[2017-03-06] MEDS: NEURONTIN PO SCH ×3 (04:05→17:52)
[2017-03-06] MEDS: VANCOMYCIN/NS 1 GM/250 ML 1 GM/250 ML BAG IV SCH (05:58)
[2017-03-06] MEDS: GLUCOPHAGE PO SCH ×2 (08:39→17:45)
[2017-03-06] MEDS: NOVOLOG SUB-Q SCH ×3 (08:40→17:46)
--- NOTE | 2017-03-06 08:54 | Discharge Summary ---
Providers - Providers Date of Admission: 02/28/17 08:16 Date of discharge: 03/07/17 Attending physician: LILI CASTREJON 02/28/17 12:55 Physical Therapy Evaluation and Treat [CONS] Routine Comment: Reason For Exam: Hx of CVA 02/28/17 12:56 Occupational Therapy Evaluate and Treat [CONS] Routine Comment: Reason For Exam: Hx of CVA 03/02/17 07:21 Consult to Physician [CONS] Routine Consulting Provider: NABILA PARSONS Reason For Exam: cva Place consult to:: DR. PARSONS Notified:: OFFICE Phone number called:: [phone] Was contact made?: Yes If yes, spoke with:: CLEO Time called:: 09:19 Comment:: RAMIN NOTIFIED 03/02/17 14:14 Speech Therapy Evaluation and Treat [CONS] Urgent Reason For Exam: CVA Primary care physician: REGINALDO ACOSTA Hospitalization Reason for admission: hypoglycemia Condition: Fair Hospital course: Patient is 61 years old female with past medical history CVA, hypertension and diabetes mellitus who presented to the emergency department with altered mentation secondary to hypoglycemia. Patient was also noted to be hypothermic and had lactic acidosis with lactate level of 3.6. Patient was admitted with diagnosis of toxic metabolic encephalopathy and sepsis. Patient was treated with IV antibiotics and monitor closely. Further evaluation for the altered mentation included CT scan of the head which showed mild volume loss and chronic white matter changes. MRI reveals small areas of subacute ischemia in the left thalamus and christian radiata. Echocardiogram and carotid ultrasound found to be within normal limits. Etiology was felt to be likely secondary to hypertension. Patient was seen by neurology in consultation. Speech therapy evaluated the patient and recommend a modified barium swallow. Physical therapy recommended subacute rehabilitation. Case management was consulted and arrangements were made. Patient is felt to have received maximal hospital benefit. Dedicated discharge time 31 minutes. Disposition[id number] Time spent for discharge: 31 - Discharge Diagnoses (1) Sepsis Status: Acute Qualifiers: Sepsis type: S (2) Hypothermia Status: Acute Qualifiers: Encounter type: E (3) CVA (cerebral infarction) Status: Acute Qualifiers: Cerebral infarction mechanism: C Precerebral and cerebral artery: P Laterality of affected vessel: L (4) Thalamic infarction Status: Acute (5) Diabetes Status: Chronic Qualifiers: Diabetes mellitus type: type 2 Diabetes mellitus complication status: with ophthalmic complications Diabetes mellitus complication detail: D Diabetic retinopathy severity: with proliferative retinopathy Proliferative retinopathy type: P Diabetes mellitus macular edema: without macular edema 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 Laterality: L Chronic kidney disease stage: C (6) History of CVA (cerebrovascular accident) Status: Chronic Core Measure Documentation - Palliative Care Palliative Care/ Comfort Measures: Not Applicable - Core Measures Any of the following diagnoses?: none Exam - Constitutional Vitals: Temp Pulse Resp BP Pulse Ox 98.7 F 61 18 175/84 98 03/06/17 08:00 03/06/17 08:00 03/06/17 08:00 03/06/17 08:00 03/06/17 08:00 General appearance: Present: no acute distress, well-nourished - EENT Eyes: Present: PERRL ENT: hearing intact, clear oral mucosa - Neck Neck: Present: supple, normal ROM - Respiratory Respiratory effort: normal Respiratory: bilateral: CTA - Cardiovascular Heart Sounds: Present: S1 & S2. Absent: rub, click - Extremities Extremities: pulses symmetrical, No edema Peripheral Pulses: within normal limits - Abdominal General gastrointestinal: Present: soft, non-tender, non-distended, normal bowel sounds Female genitourinary: Present: normal - Integumentary Integumentary: Present: clear, warm, dry - Musculoskeletal Musculoskeletal: gait normal, strength equal bilaterally - Psychiatric Psychiatric: appropriate mood/affect, intact judgment & insight - Neurologic Neurologic: CNII-XII intact, moves all extremities Plan Activity: no restrictions Weight Bearing Status: Weight Bear as Tolerated Diet: diabetic Follow up with: REGINALDO ACOSTA MD [Primary Care Provider] - 3-5 Days Prescriptions: Insulin Aspart Protam & Aspart [NovoLOG Mix 70-30 Flexpen] 30 units SQ BID #10 [email or web address]
[2017-03-06] MEDS: HCTZ PO SCH (09:46)
[2017-03-06] MEDS: LOVENOX SUB-Q SCH (09:46)
[2017-03-06] MEDS: PROTONIX PO SCH ×4 (09:47→23:12)
[2017-03-06] MEDS: NORVASC PO SCH (09:47)
[2017-03-06] MEDS: COZAAR PO SCH (09:47)
[2017-03-06] MEDS: PLAVIX PO SCH (09:47)
[2017-03-06] MEDS: ASPIRIN PO SCH (09:47)
[2017-03-06] MEDS: LOPRESSOR PO SCH ×2 (09:49→23:11)
--- NOTE | 2017-03-06 12:20 | Progress Note ---
Assessment and Plan Assessment and plan: Acute metabolic encephalopathy Resolved. Patient currently oriented to person, place and time. Most likely due to sepsis and hypoglycemic state Patient awaiting for SNF placement. Sepsis Resolved. D/C antibiotics. Lactic acidosis Resolved Most likely due to sepsis Diabetes mellitus Accu-Chek before meals and at bedtime Sliding scale insulin Increase insulin 70/30 to 20 units twice a day Accelerated Hypertension Continue losartan at home medication of Norvasc. HX of CVA CT of the head shows mild volume loss and chronic white matter changes. 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 No acute interacranial process noted MRI shows small areas of subacute ischemia are suspected that in the left, thalamus and left christian radiata. Echocardiogram and Carotid doppler WNL Physical therapy and occupational therapy on board Neurology following. Etiology likely secondary to hypertension. Diarrhea. C. difficile negative. Fecal leukocytes negative. Etiology may be related to antibiotics. Stop antibiotics. Start Lomotil. DVT/ GI prophylaxis Lovenox/ Protonix - Patient Problems (1) Sepsis Current Visit: Yes Status: Acute Qualifiers: Sepsis type: S (2) Hypothermia Current Visit: Yes Status: Acute Qualifiers: Encounter type: E (3) CVA (cerebral infarction) Current Visit: No Status: Acute Qualifiers: Cerebral infarction mechanism: C Precerebral and cerebral artery: P Laterality of affected vessel: L (4) Thalamic infarction Current Visit: No Status: Acute (5) Diabetes Current Visit: No Status: Chronic Qualifiers: Diabetes mellitus type: type 2 Diabetes mellitus complication status: with ophthalmic complications Diabetes mellitus complication detail: D Diabetic retinopathy severity: with proliferative retinopathy Proliferative retinopathy type: P Diabetes mellitus macular edema: without macular edema 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 Hospitalist Physical - Constitutional Vitals: Temp Pulse Resp BP Pulse Ox 98.7 F 72 18 175/82 98 03/06/17 08:00 03/06/17 09:49 03/06/17 08:00 03/06/17 09:49 03/06/17 08:00 General appearance: Present: no acute distress, well-nourished - EENT Eyes: Present: PERRL, EOM intact ENT: hearing intact, clear oral mucosa, dentition normal - Neck Neck: Present: supple, normal ROM - Respiratory Respiratory effort: normal Respiratory: bilateral: CTA - Cardiovascular Rhythm: regular Heart Sounds: Present: S1 & S2. Absent: gallop, rub - Extremities Extremities: no ischemia, No edema, Full ROM - Abdominal General gastrointestinal: soft, non-tender, non-distended, normal bowel sounds - Integumentary Integumentary: Present: clear, warm, dry - Neurologic Neurologic: CNII-XII intact, moves all extremities Results - Labs CBC & Chem 7: 03/05/17 04:44 03/05/17 04:44 Labs: Laboratory Last Values WBC 7.8 K/mm3 (4.5-11.0) 03/05/17 04:44 RBC 4.40 M/mm3 (3.65-5.03) 03/05/17 04:44 Hgb 9.6 gm/dl (10.1-14.3) L 03/05/17 04:44 Hct 29.8 % (30.3-42.9) L 03/05/17 04:44 MCV 68 fl (79-97) L 03/05/17 04:44 MCH 22 pg (28-32) L 03/05/17 04:44 MCHC 32 % (30-34) 03/05/17 04:44 RDW 18.3 % (13.2-15.2) H 03/05/17 04:44 Plt Count 239 K/mm3 (140-440) 03/05/17 04:44 Lymph % (Auto) 33.6 % (13.4-35.0) 03/05/17 04:44 [place] % (Auto) 8.5 % (0.0-7.3) H 03/05/17 04:44 Eos % (Auto) 5.4 % (0.0-4.3) H 03/05/17 04:44 Baso % (Auto) 0.6 % (0.0-1.8) 03/05/17 04:44 Lymph # 2.6 K/mm3 (1.2-5.4) 03/05/17 04:44 [place] # 0.7 K/mm3 (0.0-0.8) 03/05/17 04:44 Eos # 0.4 K/mm3 (0.0-0.4) 03/05/17 04:44 Baso # 0.1 K/mm3 (0.0-0.1) 03/05/17 04:44 Seg Neutrophils % 51.9 % (40.0-70.0) 03/05/17 04:44 Seg Neutrophils # 4.0 K/mm3 (1.8-7.7) 03/05/17 04:44 PT 13.6 Sec. (12.2-14.9) 02/28/17 06:55 INR 1.05 (0.87-1.13) 02/28/17 06:55 Sodium 142 mmol/L (137-145) 03/05/17 04:44 Potassium 3.5 mmol/L (3.6-5.0) L 03/05/17 04:44 Chloride 102.2 mmol/L (98-107) 03/05/17 04:44 Carbon Dioxide 24 mmol/L (22-30) 03/05/17 04:44 Anion Gap 19 mmol/L 03/05/17 04:44 BUN 9 mg/dL (7-17) 03/05/17 04:44 Creatinine 0.8 mg/dL (0.7-1.2) 03/05/17 04:44 Estimated GFR > 60 ml/min 03/05/17 04:44 BUN/Creatinine Ratio 11.25 % 03/05/17 04:44 Glucose 284 mg/dL (65-100) H 03/05/17 04:44 POC Glucose 177 (70-105) H 03/06/17 11:06 Lactic Acid 1.90 mmol/L (0.7-2.0) 03/03/17 04:35 Calcium 8.8 mg/dL (8.4-10.2) 03/05/17 04:44 Total Bilirubin 0.30 mg/dL (0.1-1.2) 02/28/17 06:41 AST 15 units/L (5-40) 02/28/17 06:41 ALT 13 units/L (7-56) 02/28/17 06:41 Alkaline Phosphatase 84 units/L (35-129) 02/28/17 06:41 Troponin T < 0.010 ng/mL (0.00-0.029) 02/28/17 06:55 Total Protein 7.9 g/dL (6.3-8.2) 02/28/17 06:41 Albumin 4.4 g/dL (3.9-5) 02/28/17 06:41 Albumin/Globulin Ratio 1.3 % 02/28/17 06:41 Urine Color Straw (Yellow) 02/28/17 07:55 Urine Turbidity Clear (Clear) 02/28/17 07:55 Urine pH 5.0 (5.0-7.0) 02/28/17 07:55 Ur Specific [place] 1.006 (1.003-1.030) 02/28/17 07:55 Urine Protein <15 mg/dl mg/dL (Negative) 02/28/17 07:55 Urine Glucose (UA) 150 mg/dL (Negative) 02/28/17 07:55 Urine Ketones Neg mg/dL (Negative) 02/28/17 07:55 Urine Blood Neg (Negative) 02/28/17 07:55 Urine Nitrite Neg (Negative) 02/28/17 07:55 Urine Bilirubin Neg (Negative) 02/28/17 07:55 Urine Urobilinogen < 2.0 mg/dL (<2.0) 02/28/17 07:55 Ur Leukocyte Esterase Neg (Negative) 02/28/17 07:55 Urine WBC (Auto) < 1.0 /HPF (0.0-6.0) 02/28/17 07:55 Urine RBC (Auto) 3.0 /HPF (0.0-6.0) 02/28/17 07:55 Urine Bacteria (Auto) 1+ /HPF (Negative) 02/28/17 07:55 Vancomycin Trough 17.7 ug/mL (5.0-20.0) 03/05/17 04:44 Urine Opiates Screen Presumptive negative 02/28/17 07:55 Urine Methadone Screen Presumptive negative 02/28/17 07:55 Ur Barbiturates Screen Presumptive negative 02/28/17 07:55 Ur Phencyclidine Scrn Presumptive negative 02/28/17 07:55 Ur Amphetamines Screen Presumptive negative 02/28/17 07:55 U Benzodiazepines Scrn Presumptive negative 02/28/17 07:55 Urine Cocaine Screen Presumptive negative 02/28/17 07:55 U Marijuana (THC) Screen Presumptive negative 02/28/17 07:55 Drugs of Abuse Note Disclamer 02/28/17 07:55
[2017-03-06] MEDS: ZOCOR PO SCH (23:10)
[2017-03-07] MEDS: NEURONTIN PO SCH ×4 (03:03→17:42)
[2017-03-07] MEDS: APRESOLINE IV PRN (07:12)
[2017-03-07] MEDS: NOVOLOG SUB-Q SCH ×4 (08:37→17:37)
[2017-03-07] MEDS: GLUCOPHAGE PO SCH ×2 (08:37→17:37)
[2017-03-07] MEDS: PROTONIX PO SCH ×4 (08:38→22:56)
--- NOTE | 2017-03-07 09:02 | Progress Note ---
Assessment and Plan Assessment and plan: Acute metabolic encephalopathy Resolved. Patient currently oriented to person, place and time. Most likely due to sepsis and hypoglycemic state Patient awaiting for SNF placement. Sepsis Resolved. D/C antibiotics. Lactic acidosis Resolved Most likely due to sepsis Diabetes mellitus Accu-Chek before meals and at bedtime Sliding scale insulin Increase insulin 70/30 to 20 units twice a day Accelerated Hypertension Continue losartan at home medication of Norvasc. HX of CVA CT of the head shows mild volume loss and chronic white matter changes. 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 No acute interacranial process noted MRI shows small areas of subacute ischemia are suspected that in the left, thalamus and left christian radiata. Echocardiogram and Carotid doppler WNL Physical therapy and occupational therapy on board Neurology following. Etiology likely secondary to hypertension. Diarrhea. C. difficile negative. Fecal leukocytes negative. Etiology may be related to antibiotics. Stop antibiotics. Start Lomotil. DVT/ GI prophylaxis Lovenox/ Protonix - Patient Problems (1) Sepsis Current Visit: Yes Status: Acute Qualifiers: Sepsis type: S (2) Hypothermia Current Visit: Yes Status: Acute Qualifiers: Encounter type: E (3) CVA (cerebral infarction) Current Visit: No Status: Acute Qualifiers: Cerebral infarction mechanism: C Precerebral and cerebral artery: P Laterality of affected vessel: L (4) Thalamic infarction Current Visit: No Status: Acute (5) Diabetes Current Visit: No Status: Chronic Qualifiers: Diabetes mellitus type: type 2 Diabetes mellitus complication status: with ophthalmic complications Diabetes mellitus complication detail: D Diabetic retinopathy severity: with proliferative retinopathy Proliferative retinopathy type: P Diabetes mellitus macular edema: without macular edema Diabetes mellitus cardiologist insulin use: D Laterality: L Chronic kidney disease stage: C (6) History of CVA (cerebrovascular accident) Current Visit: No Status: Chronic History Interval history: No new issues overnight. Patient sleeping. Hospitalist Physical - Constitutional Vitals: Temp Pulse Resp BP Pulse Ox 98.2 F 80 20 191/84 97 03/07/17 04:00 03/07/17 07:12 03/07/17 04:00 03/07/17 07:12 03/07/17 04:00 General appearance: Present: no acute distress, well-nourished - EENT Eyes: Present: PERRL, EOM intact ENT: hearing intact, clear oral mucosa, dentition normal - Neck Neck: Present: supple, normal ROM - Respiratory Respiratory effort: normal Respiratory: bilateral: CTA - Cardiovascular Rhythm: regular Heart Sounds: Present: S1 & S2. Absent: gallop, rub - Extremities Extremities: no ischemia, No edema, Full ROM - Abdominal General gastrointestinal: soft, non-tender, non-distended, normal bowel sounds - Integumentary Integumentary: Present: clear, warm, dry - Neurologic Neurologic: CNII-XII intact, moves all extremities Results - Labs CBC & Chem 7: 03/05/17 04:44 03/05/17 04:44 Labs: Laboratory Last Values WBC 7.8 K/mm3 (4.5-11.0) 03/05/17 04:44 RBC 4.40 M/mm3 (3.65-5.03) 03/05/17 04:44 Hgb 9.6 gm/dl (10.1-14.3) L 03/05/17 04:44 Hct 29.8 % (30.3-42.9) L 03/05/17 04:44 MCV 68 fl (79-97) L 03/05/17 04:44 MCH 22 pg (28-32) L 03/05/17 04:44 MCHC 32 % (30-34) 03/05/17 04:44 RDW 18.3 % (13.2-15.2) H 03/05/17 04:44 Plt Count 239 K/mm3 (140-440) 03/05/17 04:44 Lymph % (Auto) 33.6 % (13.4-35.0) 03/05/17 04:44 [place] % (Auto) 8.5 % (0.0-7.3) H 03/05/17 04:44 Eos % (Auto) 5.4 % (0.0-4.3) H 03/05/17 04:44 Baso % (Auto) 0.6 % (0.0-1.8) 03/05/17 04:44 Lymph # 2.6 K/mm3 (1.2-5.4) 03/05/17 04:44 [place] # 0.7 K/mm3 (0.0-0.8) 03/05/17 04:44 Eos # 0.4 K/mm3 (0.0-0.4) 03/05/17 04:44 Baso # 0.1 K/mm3 (0.0-0.1) 03/05/17 04:44 Seg Neutrophils % 51.9 % (40.0-70.0) 03/05/17 04:44 Seg Neutrophils # 4.0 K/mm3 (1.8-7.7) 03/05/17 04:44 PT 13.6 Sec. (12.2-14.9) 02/28/17 06:55 INR 1.05 (0.87-1.13) 02/28/17 06:55 Sodium 142 mmol/L (137-145) 03/05/17 04:44 Potassium 3.5 mmol/L (3.6-5.0) L 03/05/17 04:44 Chloride 102.2 mmol/L (98-107) 03/05/17 04:44 Carbon Dioxide 24 mmol/L (22-30) 03/05/17 04:44 Anion Gap 19 mmol/L 03/05/17 04:44 BUN 9 mg/dL (7-17) 03/05/17 04:44 Creatinine 0.8 mg/dL (0.7-1.2) 03/05/17 04:44 Estimated GFR > 60 ml/min 03/05/17 04:44 BUN/Creatinine Ratio 11.25 % 03/05/17 04:44 Glucose 284 mg/dL (65-100) H 03/05/17 04:44 POC Glucose 84 (70-105) 03/07/17 06:40 Lactic Acid 1.00 mmol/L (0.7-2.0) 03/07/17 05:03 Calcium 8.8 mg/dL (8.4-10.2) 03/05/17 04:44 Total Bilirubin 0.30 mg/dL (0.1-1.2) 02/28/17 06:41 AST 15 units/L (5-40) 02/28/17 06:41 ALT 13 units/L (7-56) 02/28/17 06:41 Alkaline Phosphatase 84 units/L (35-129) 02/28/17 06:41 Troponin T < 0.010 ng/mL (0.00-0.029) 02/28/17 06:55 Total Protein 7.9 g/dL (6.3-8.2) 02/28/17 06:41 Albumin 4.4 g/dL (3.9-5) 02/28/17 06:41 Albumin/Globulin Ratio 1.3 % 02/28/17 06:41 Urine Color Straw (Yellow) 02/28/17 07:55 Urine Turbidity Clear (Clear) 02/28/17 07:55 Urine pH 5.0 (5.0-7.0) 02/28/17 07:55 Ur Specific [place] 1.006 (1.003-1.030) 02/28/17 07:55 Urine Protein <15 mg/dl mg/dL (Negative) 02/28/17 07:55 Urine Glucose (UA) 150 mg/dL (Negative) 02/28/17 07:55 Urine Ketones Neg mg/dL (Negative) 02/28/17 07:55 Urine Blood Neg (Negative) 02/28/17 07:55 Urine Nitrite Neg (Negative) 02/28/17 07:55 Urine Bilirubin Neg (Negative) 02/28/17 07:55 Urine Urobilinogen < 2.0 mg/dL (<2.0) 02/28/17 07:55 Ur Leukocyte Esterase Neg (Negative) 02/28/17 07:55 Urine WBC (Auto) < 1.0 /HPF (0.0-6.0) 02/28/17 07:55 Urine RBC (Auto) 3.0 /HPF (0.0-6.0) 02/28/17 07:55 Urine Bacteria (Auto) 1+ /HPF (Negative) 02/28/17 07:55 Vancomycin Trough 17.7 ug/mL (5.0-20.0) 03/05/17 04:44 Urine Opiates Screen Presumptive negative 02/28/17 07:55 Urine Methadone Screen Presumptive negative 02/28/17 07:55 Ur Barbiturates Screen Presumptive negative 02/28/17 07:55 Ur Phencyclidine Scrn Presumptive negative 02/28/17 07:55 Ur Amphetamines Screen Presumptive negative 02/28/17 07:55 U Benzodiazepines Scrn Presumptive negative 02/28/17 07:55 Urine Cocaine Screen Presumptive negative 02/28/17 07:55 U Marijuana (THC) Screen Presumptive negative 02/28/17 07:55 Drugs of Abuse Note Disclamer 02/28/17 07:55
--- NOTE | 2017-03-07 09:24 | Vascular Lab Report ---
CAROTID DUPLEX STUDY: RIGHT PSVEDV CCA PROX:38605 CCA DIST: 6513 ICA PROX: 4714 ICA MID: 7817 ICA DIST: 9923 ECA: 45 VERT: 50 9 LEFT PSVEDV CCA PROX:115 7 CCA DIST: 7212 ICA PROX: 5811 ICA MID: 5817 ICA DIST: 4111 ECA: 39 VERT: 57 10 REASON FOR EXAM: CVA. COMMENTS ON THE RIGHT: Doppler frequency analysis is consistent with 16 to 49 percent diameter reduction of the internal carotid artery. Minimal amount of plaque is seen. The common carotid artery is patent. The external carotid artery is patent. The vertebral artery has antegrade flow. COMMENTS ON THE LEFT: Doppler frequency analysis is consistent with 16 to 49 percent diameter reduction of the internal carotid artery. Minimal amount of plaque is seen. The common carotid artery is patent. The external carotid artery is patent. The vertebral artery has antegrade flow. IMPRESSION: Less than 50% diameter reduction in the internal carotid arteries bilaterally. Consider repeat carotid artery duplex in 12 months.111
[2017-03-07] MEDS: LOPRESSOR PO SCH ×2 (10:59→22:55)
[2017-03-07] MEDS: ASPIRIN PO SCH (10:59)
[2017-03-07] MEDS: PLAVIX PO SCH (10:59)
[2017-03-07] MEDS: HCTZ PO SCH (10:59)
[2017-03-07] MEDS: COZAAR PO SCH (10:59)
[2017-03-07] MEDS: NORVASC PO SCH (11:00)
[2017-03-07] MEDS: LOVENOX SUB-Q SCH (12:15)
[2017-03-07 20:22] LABS: Bilirubin,Urine NEG (Negative); Blood,Urine NEG (Negative); Ketones,Urine NEG (Negative); Leukocyte Esterase,Urine NEG (Negative); Nitrite,Urine NEG (Negative); Protein,Urine <15 mg/dL mg/dL (Negative); Urobilinogen,Urine < 2.0 mg/dL (<2.0); WBC,Urine < 1.0 /HPF (0.0-6.0)
[2017-03-07] MEDS: ZOCOR PO SCH (22:56)
[2017-03-08] MEDS: NEURONTIN PO SCH ×3 (04:03→18:44)
[2017-03-08] MEDS: NOVOLOG SUB-Q SCH ×3 (08:06→18:29)
[2017-03-08] MEDS: PROTONIX PO SCH ×4 (08:22→23:15)
[2017-03-08] MEDS: LOPRESSOR PO SCH ×2 (09:27→23:12)
[2017-03-08] MEDS: GLUCOPHAGE PO SCH ×2 (09:29→18:43)
[2017-03-08] MEDS: COZAAR PO SCH (09:30)
[2017-03-08] MEDS: NORVASC PO SCH (09:31)
[2017-03-08] MEDS: HCTZ PO SCH (09:31)
[2017-03-08] MEDS: ASPIRIN PO SCH (09:31)
[2017-03-08] MEDS: LOVENOX SUB-Q SCH (09:32)
[2017-03-08] MEDS: PLAVIX PO SCH (09:32)
--- NOTE | 2017-03-08 19:16 | Progress Note ---
Assessment and Plan Assessment and plan: 1. Sepsis/ lactic acidosis - resolved, completed antibiotic course 2. Diarrhea - C. difficile negative; fecal leukocytes also negative; antibiotics stopped; resolved 3. Electrolyte imbalances - resolved 4. Acute metabolic encephalopathy - likely secondary to sepsis/hypoglycemia/ acidosis; resolved, mental status likely at baseline 5. Diabetes mellitus - long-acting insulin along with SSI based on Accu-Cheks 6. Hypertension - on multiple antihypertensives: amlodipine, metoprolol, losartan, HCTZ; monitor BP and adjust regimen as needed 7. CVAs - subacute and chronic small infarcts (CT head showing multiple bilateral lacunar infarcts in the thalamus and angel; MRI with small areas of subacute ischemia in left thalamus and left coronary radiata); on antiplatelet and statin therapy; PT/OT/ST 8. DVT/GI prophylaxis 9. Dispo - awaiting placement (needs precertification) History Interval history: no specific complaints, mental status likely at baseline Hospitalist Physical - Constitutional Vitals: Temp Pulse Resp BP Pulse Ox 99.2 F 68 20 115/59 97 03/08/17 16:15 03/08/17 16:15 03/08/17 16:15 03/08/17 16:15 03/08/17 16:15 General appearance: Present: no acute distress - EENT ENT: clear oral mucosa, poor dentition - Neck Neck: Present: supple, normal ROM. Absent: masses or JVD - Respiratory Respiratory effort: normal Respiratory: bilateral: CTA, negative: rhonchi, wheezing - Cardiovascular Rhythm: regular Heart Sounds: Present: S1 & S2. Absent: systolic murmur - Extremities Extremities: no ischemia - Abdominal General gastrointestinal: soft, non-tender, non-distended, normal bowel sounds - Neurologic Neurologic: moves all extremities Results - Labs CBC & Chem 7: 03/05/17 04:44 03/05/17 04:44 Labs: Laboratory Last Values WBC 7.8 K/mm3 (4.5-11.0) 03/05/17 04:44 RBC 4.40 M/mm3 (3.65-5.03) 03/05/17 04:44 Hgb 9.6 gm/dl (10.1-14.3) L 03/05/17 04:44 Hct 29.8 % (30.3-42.9) L 03/05/17 04:44 MCV 68 fl (79-97) L 03/05/17 04:44 MCH 22 pg (28-32) L 03/05/17 04:44 MCHC 32 % (30-34) 03/05/17 04:44 RDW 18.3 % (13.2-15.2) H 03/05/17 04:44 Plt Count 239 K/mm3 (140-440) 03/05/17 04:44 Lymph % (Auto) 33.6 % (13.4-35.0) 03/05/17 04:44 [place] % (Auto) 8.5 % (0.0-7.3) H 03/05/17 04:44 Eos % (Auto) 5.4 % (0.0-4.3) H 03/05/17 04:44 Baso % (Auto) 0.6 % (0.0-1.8) 03/05/17 04:44 Lymph # 2.6 K/mm3 (1.2-5.4) 03/05/17 04:44 [place] # 0.7 K/mm3 (0.0-0.8) 03/05/17 04:44 Eos # 0.4 K/mm3 (0.0-0.4) 03/05/17 04:44 Baso # 0.1 K/mm3 (0.0-0.1) 03/05/17 04:44 Seg Neutrophils % 51.9 % (40.0-70.0) 03/05/17 04:44 Seg Neutrophils # 4.0 K/mm3 (1.8-7.7) 03/05/17 04:44 PT 13.6 Sec. (12.2-14.9) 02/28/17 06:55 INR 1.05 (0.87-1.13) 02/28/17 06:55 Sodium 142 mmol/L (137-145) 03/05/17 04:44 Potassium 3.5 mmol/L (3.6-5.0) L 03/05/17 04:44 Chloride 102.2 mmol/L (98-107) 03/05/17 04:44 Carbon Dioxide 24 mmol/L (22-30) 03/05/17 04:44 Anion Gap 19 mmol/L 03/05/17 04:44 BUN 9 mg/dL (7-17) 03/05/17 04:44 Creatinine 0.8 mg/dL (0.7-1.2) 03/05/17 04:44 Estimated GFR > 60 ml/min 03/05/17 04:44 BUN/Creatinine Ratio 11.25 % 03/05/17 04:44 Glucose 284 mg/dL (65-100) H 03/05/17 04:44 POC Glucose 240 (70-105) H 03/08/17 16:11 Lactic Acid 1.00 mmol/L (0.7-2.0) 03/07/17 05:03 Calcium 8.8 mg/dL (8.4-10.2) 03/05/17 04:44 Total Bilirubin 0.30 mg/dL (0.1-1.2) 02/28/17 06:41 AST 15 units/L (5-40) 02/28/17 06:41 ALT 13 units/L (7-56) 02/28/17 06:41 Alkaline Phosphatase 84 units/L (35-129) 02/28/17 06:41 Troponin T < 0.010 ng/mL (0.00-0.029) 02/28/17 06:55 Total Protein 7.9 g/dL (6.3-8.2) 02/28/17 06:41 Albumin 4.4 g/dL (3.9-5) 02/28/17 06:41 Albumin/Globulin Ratio 1.3 % 02/28/17 06:41 Urine Color Yellow (Yellow) 03/07/17 Unknown Urine Turbidity Clear (Clear) 03/07/17 Unknown Urine pH 6.0 (5.0-7.0) 03/07/17 Unknown Ur Specific [place] 1.009 (1.003-1.030) 03/07/17 Unknown Urine Protein <15 mg/dl mg/dL (Negative) 03/07/17 Unknown Urine Glucose (UA) Neg mg/dL (Negative) 03/07/17 Unknown Urine Ketones Neg mg/dL (Negative) 03/07/17 Unknown Urine Blood Neg (Negative) 03/07/17 Unknown Urine Nitrite Neg (Negative) 03/07/17 Unknown Urine Bilirubin Neg (Negative) 03/07/17 Unknown Urine Urobilinogen < 2.0 mg/dL (<2.0) 03/07/17 Unknown Ur Leukocyte Esterase Neg (Negative) 03/07/17 Unknown Urine WBC (Auto) < 1.0 /HPF (0.0-6.0) 03/07/17 Unknown Urine RBC (Auto) 3.0 /HPF (0.0-6.0) 03/07/17 Unknown U Epithel Cells (Auto) < 1.0 /HPF (0-13.0) 03/07/17 Unknown Urine Bacteria (Auto) 1+ /HPF (Negative) 02/28/17 07:55 Vancomycin Trough 17.7 ug/mL (5.0-20.0) 03/05/17 04:44 Urine Opiates Screen Presumptive negative 02/28/17 07:55 Urine Methadone Screen Presumptive negative 02/28/17 07:55 Ur Barbiturates Screen Presumptive negative 02/28/17 07:55 Ur Phencyclidine Scrn Presumptive negative 02/28/17 07:55 Ur Amphetamines Screen Presumptive negative 02/28/17 07:55 U Benzodiazepines Scrn Presumptive negative 02/28/17 07:55 Urine Cocaine Screen Presumptive negative 02/28/17 07:55 U Marijuana (THC) Screen Presumptive negative 02/28/17 07:55 Drugs of Abuse Note Disclamer 02/28/17 07:55
[2017-03-08] MEDS: APRESOLINE IV PRN (23:11)
[2017-03-08] MEDS: ZOCOR PO SCH (23:12)
[2017-03-09] MEDS: NEURONTIN PO SCH ×3 (01:33→17:44)
[2017-03-09] MEDS: NOVOLOG SUB-Q SCH ×3 (07:49→17:42)
[2017-03-09] MEDS: PROTONIX PO SCH ×3 (08:02→17:41)
[2017-03-09] MEDS: PLAVIX PO SCH (10:40)
[2017-03-09] MEDS: GLUCOPHAGE PO SCH ×2 (10:40→17:40)
[2017-03-09] MEDS: ASPIRIN PO SCH (10:40)
[2017-03-09] MEDS: HCTZ PO SCH (10:41)
[2017-03-09] MEDS: LOPRESSOR PO SCH (10:41)
[2017-03-09] MEDS: COZAAR PO SCH (10:41)
[2017-03-09] MEDS: NORVASC PO SCH (10:42)
[2017-03-09] MEDS: LOVENOX SUB-Q SCH (10:43)
--- NOTE | 2017-03-09 16:26 | Discharge Summary ---
Providers - Providers Date of Admission: 02/28/17 08:16 Date of discharge: 03/09/17 Attending physician: ANGELINE LEE 02/28/17 12:55 Physical Therapy Evaluation and Treat [CONS] Routine Comment: Reason For Exam: Hx of CVA 02/28/17 12:56 Occupational Therapy Evaluate and Treat [CONS] Routine Comment: Reason For Exam: Hx of CVA 03/02/17 07:21 Consult to Physician [CONS] Routine Consulting Provider: NABILA PARSONS Reason For Exam: cva Place consult to:: DR. PARSONS Notified:: OFFICE Phone number called:: [phone] Was contact made?: Yes If yes, spoke with:: CLEO Time called:: 09:19 Comment:: RAMIN NOTIFIED 03/02/17 14:14 Speech Therapy Evaluation and Treat [CONS] Urgent Reason For Exam: CVA 03/06/17 16:48 Consult to Wound/ET Nurse [CONS] Routine Reason For Exam: wound eval Primary care physician: REGINALDO ACOSTA Hospitalization Reason for admission: altered mental status Condition: Stable Pertinent studies: CT head MRI brain Carotid Doppler Echocardiogram Chest x-ray CT abdomen/pelvis Hospital course: Patient is a 61 years old -Spanish female with prior CVA, hypertension, diabetes who was brought to the hospital for change in mental status and found to be hypoglycemic. Diagnosed with acute metabolic encephalopathy secondary to hypoglycemia/sepsis/acidosis/electrolytes abnormalities. She completed antibiotic course, antidiabetic regimen has been adjusted, electrolytes abnormalities resolved and she is discharged to half-way in stable condition. Discharge diagnoses: 1. Sepsis/ lactic acidosis - resolved, completed antibiotic course 2. Diarrhea - C. difficile negative; fecal leukocytes also negative; antibiotics stopped; resolved 3. Electrolyte imbalances - resolved 4. Acute metabolic encephalopathy - likely secondary to sepsis/hypoglycemia/ acidosis; resolved, mental status likely at baseline 5. Diabetes mellitus -regimen adjusted 6. Hypertension - BP controlled on amlodipine, metoprolol, losartan, HCTZ 7. CVAs - subacute and chronic small infarcts; on antiplatelet and statin therapy; PT/OT/ST Disposition: DC/[place]-03 SNF [facility] Time spent for discharge: 35 min Core Measure Documentation - Palliative Care Palliative Care/ Comfort Measures: Not Applicable - Core Measures Any of the following diagnoses?: stroke, history only - Stroke Discharge Requirements Statin for LDL = or >70 mg/dl on DC: Yes Anticoag for atrial fib/atrial flutter: Not Applicable Antithrombotic for ischemic stroke: Yes Exam - Physical Exam Narrative exam: Patient seen and examined: - Constitutional Vitals: Temp Pulse Resp BP Pulse Ox 98.9 F 69 18 160/75 95 03/09/17 15:13 03/09/17 15:13 03/09/17 15:13 03/09/17 15:13 03/09/17 15:13 General appearance: Present: no acute distress - Neck Neck: Present: supple. Absent: enlarged thyroid, masses or JVD - Respiratory Respiratory effort: normal Respiratory: bilateral: CTA, negative: rhonchi, wheezing - Cardiovascular Rhythm: regular Heart Sounds: Present: S1 & S2. Absent: systolic murmur - Extremities Extremities: no ischemia - Abdominal General gastrointestinal: Present: soft, non-tender, non-distended, normal bowel sounds - Integumentary Integumentary: Present: warm, dry. Absent: jaundice, rash Plan Activity: advance as tolerated, fall precautions Diet: low cholesterol, low salt, diabetic Follow up with: REGINALDO ACOSTA MD [Primary Care Provider] - 3-5 Days Prescriptions: Insulin Aspart Protam & Aspart [NovoLOG Mix 70-30 Flexpen] 30 units SQ BID #10 [email or web address]
[2017-03-09 20:07] VITALS: BP 164/79
== END 2017-03-09 20:20 | DRG 871 ==
LOC: ED 06:00 → 3A 08:16
PROVIDERS: ADMIT Hospitalist; ATTEND Internal Medicine
DX: A41.9 Sepsis, unspecified organism (principal); G93.41 Metabolic encephalopathy; I63.9 Cerebral infarction, unspecified; I10 Essential (primary) hypertension; T68.XXXA Hypothermia, initial encounter; R19.7 Diarrhea, unspecified; M19.90 Unspecified osteoarthritis, unspecified site; G89.29 Other chronic pain; M54.9 Dorsalgia, unspecified; E78.5 Hyperlipidemia, unspecified; E11.649 Type 2 diabetes mellitus with hypoglycemia without coma
CPT/HCPCS: 36415; 70450; 70551; 71010; 74176; 80048; 80053; 80202; 80307; 81001; 82140; 82962; 84484; 85007; 85025; 85027; 85610; 87040; 87045; 87086; 87493; 93005; 93010; 93306; 93880; 96365; 96372; G8978-GP; G8979-GP; G8987-GO; G8988-GO; G8996-GN; G8997-GN; J0360; J1650; J1815; J1818; J2543; J3370; J7030; J7040; J7050

== ENCOUNTER 2018-10-26 16:47 | Emergency (ER) | payer MEDICARE ==
--- NOTE | 2018-10-26 17:19 | Emergency Department Report ---
<REGINALDO WORTHY III - Last Filed: 10/26/18 20:29> ED Abdominal Pain HPI - General Chief Complaint: Abdominal Pain Stated Complaint: ABD/BACK PAIN Time Seen by Provider: 10/26/18 17:09 Source: patient, EMS Mode of arrival: Stretcher Limitations: No Limitations - History of Present Illness Initial Comments: This 62-year-old female that presents emergency with abdominal pain that started this morning. Patient states she has been urinating since last night. Patient states the pain is a 10 out of 10. Patient complains of abdominal distention as well. Patient states the pain is better with rest and worse with palpation and movement. Patient patient denies fever/chills. Patient denies nausea vomiting. Patient denies diarrhea. Patient denies chest pain/shortness of breath. MD Complaint: abdominal pain - Related Data Home Medications Medication Instructions Recorded Confirmed Last Taken Simvastatin (Nf) [Zocor TAB] 20 mg PO QHS 12/26/14 05/03/18 02/27/17 metFORMIN [Glucophage] 1,000 mg PO BID 12/26/14 11/13/17 05/02/18 Albuterol Sulfate [Ventolin HFA] 2 puff IH Q4H PRN 02/28/17 05/03/18 Unknown Gabapentin [Neurontin] 600 mg PO DAILY 02/28/17 05/03/18 02/27/17 amLODIPine [Norvasc] 10 mg PO DAILY 02/28/17 05/03/18 05/02/18 Acetaminophen/Codeine [Tylenol 1 tab PO Q6H PRN 11/13/17 05/03/18 Unknown /Codeine # 3 tab] Esomeprazole Magnesium [NexIUM] 40 mg PO QDAY 11/13/17 11/13/17 Unknown Ferrous Sulfate [Feosol 325 MG tab] 325 mg PO QDAY 11/13/17 05/03/18 Unknown NovoLOG Mix 70/30 VIAL 28 units SC BID 11/16/17 05/03/18 11/11/17 Famotidine 1 tab PO DAILY 05/03/18 05/03/18 Unknown Previous Rx's Medication Instructions Recorded Last Taken Type Aspirin [Aspirin TAB] 325 mg PO QDAY tablet 03/03/17 Unknown Rx Clopidogrel [Plavix] 75 mg PO QDAY tablet 03/03/17 Unknown Rx hydroCHLOROthiazide [HCTZ] 25 mg PO QDAY tablet 03/03/17 05/02/18 Rx ALBUTEROL NEB's [Proventil 0.083% 2.5 mg IH Q4HRT PRN #30 nebu 03/06/17 Unknown Rx NEBS] Nitrofurantoin Monohyd/M-Cryst 100 mg PO BID #14 capsule 06/25/18 Unknown Rx [Macrobid 100 mg Capsule] Metoprolol [Lopressor TAB] 25 mg PO BID #20 tablet 10/26/18 Unknown Rx Allergies Allergy/AdvReac Type Severity Reaction Status Date / Time No Known Allergies Allergy Verified 12/26/14 15:33 ED Review of Systems Constitutional: denies: chills, fever Eyes: denies: eye pain, eye discharge, vision change ENT: denies: ear pain, throat pain Respiratory: denies: cough, shortness of breath, wheezing Cardiovascular: denies: chest pain, palpitations Endocrine: no symptoms reported Gastrointestinal: denies: abdominal pain, nausea, diarrhea Genitourinary: denies: urgency, dysuria, discharge Musculoskeletal: denies: back pain, joint swelling, arthralgia Skin: denies: rash, lesions Neurological: denies: headache, weakness, paresthesias Psychiatric: denies: anxiety, depression Hematological/Lymphatic: denies: easy bleeding, easy bruising ED Past Medical Hx - Past Medical History Hx Hypertension: Yes Hx CVA: Yes (left-sided weakness, walks with walker) Hx Diabetes: Yes Hx Arthritis: Yes Hx Asthma: Yes Hx COPD: No Hx HIV: No Additional medical history: CHRONIC BACK PAIN,neuropathy - Surgical History Additional Surgical History: EYE SURGERY - Social History Smoking Status: Never Smoker Substance Use Type: None - Medications Home Medications: Home Medications Medication Instructions Recorded Confirmed Last Taken Type Simvastatin (Nf) [Zocor TAB] 20 mg PO QHS 12/26/14 05/03/18 02/27/17 History metFORMIN [Glucophage] 1,000 mg PO BID 12/26/14 11/13/17 05/02/18 History Albuterol Sulfate [Ventolin HFA] 2 puff IH Q4H PRN 02/28/17 05/03/18 Unknown History Gabapentin [Neurontin] 600 mg PO DAILY 02/28/17 05/03/18 02/27/17 History amLODIPine [Norvasc] 10 mg PO DAILY 02/28/17 05/03/18 05/02/18 History Aspirin [Aspirin TAB] 325 mg PO QDAY tablet 03/03/17 05/03/18 Unknown Rx Clopidogrel [Plavix] 75 mg PO QDAY tablet 03/03/17 11/13/17 Unknown Rx hydroCHLOROthiazide [HCTZ] 25 mg PO QDAY tablet 03/03/17 05/03/18 05/02/18 Rx ALBUTEROL NEB's [Proventil 0.083% 2.5 mg IH Q4HRT PRN #30 nebu 03/06/17 05/03/18 Unknown Rx NEBS] Acetaminophen/Codeine [Tylenol 1 tab PO Q6H PRN 11/13/17 05/03/18 Unknown History /Codeine # 3 tab] Esomeprazole Magnesium [NexIUM] 40 mg PO QDAY 11/13/17 11/13/17 Unknown History Ferrous Sulfate [Feosol 325 MG tab] 325 mg PO QDAY 11/13/17 05/03/18 Unknown History NovoLOG Mix 70/30 VIAL 28 units SC BID 11/16/17 05/03/18 11/11/17 History Famotidine 1 tab PO DAILY 05/03/18 05/03/18 Unknown History Nitrofurantoin Monohyd/M-Cryst 100 mg PO BID #14 capsule 06/25/18 Unknown Rx [Macrobid 100 mg Capsule] Metoprolol [Lopressor TAB] 25 mg PO BID #20 tablet 10/26/18 Unknown Rx ED Physical Exam - General Limitations: No Limitations General appearance: alert, in no apparent distress - Head Head exam: Present: atraumatic, normocephalic - Eye Eye exam: Present: normal appearance - ENT ENT exam: Present: mucous membranes moist - Neck Neck exam: Present: normal inspection - Respiratory Respiratory exam: Present: normal lung sounds bilaterally. Absent: respiratory distress - Cardiovascular Cardiovascular Exam: Present: regular rate, normal rhythm. Absent: systolic murmur, diastolic murmur, rubs, gallop - GI/Abdominal GI/Abdominal exam: Present: soft, distended, tenderness (suprapubic tenderness. Palpable bladder), normal bowel sounds - Rectal Rectal exam: Present: deferred - Extremities Exam Extremities exam: Present: normal inspection - Back Exam Back exam: Present: normal inspection - Neurological Exam Neurological exam: Present: alert, oriented X3 - Psychiatric Psychiatric exam: Present: normal affect, normal mood - Skin Skin exam: Present: warm, dry, intact, normal color. Absent: rash ED Course - Reevaluation(s) Reevaluation #1: Upon initial evaluation patient found to have distention of the lower abdomen, the abdominal distention appears to be secondary to urinary retention and distended bladder. All have a Gan placed by the nurse. 10/26/18 17:20 Gan placed. 2200 mls removed. Patient states her pain is resolved. Patient's abdomen is nontender. 10/26/18 18:09 She denies pain. Patient's abdomen is nontender. Patient's CT is pending. 10/26/18 19:45 Patient given discharge instructions. Patient given medication instructions. Patient will need to have her potassium checked within 2-3 days. Patient will need to follow up with primary care evaluation and management of her potassium and her blood pressure. Patient will also need to follow-up with the urologist for him and over urinary retention. Patient voiced understanding of instructions. 10/26/18 20:05 Reevaluation #2: Patient signed out to oncoming doctor, Dr Roa. CT of the abdomen is pending. Final disposition will be done by oncoming physician. 10/26/18 20:30 ED Medical Decision Making - Lab Data Result diagrams: 10/26/18 17:49 10/26/18 17:49 - Radiology Data Radiology results: report reviewed - Medical Decision Making Patient is a 62-year-old female that presents emergency room for abdominal pain. Patient found to have a distended bladder and abdomen. Patient had a Gan placed and immediately 2 L of urine came out. Patient's pain was relieved. Patient's CT done. Patient's blood pressure elevated. Patient also found to have hyperkalemia. Patient's losartan stopped. We will increase the patient's metoprolol 25 mg by mouth twice a day. i ED Disposition Clinical Impression: Cystitis, Urinary retention Disposition: DC-01 TO HOME OR SELFCARE Is pt being admited?: No Does the pt Need Aspirin: No Condition: Stable Instructions: Gan Catheter Placement and Care (ED), Acute Urinary Retention in Women (ED), Abdominal Pain (ED), Hypertension (ED), Urinary Leg Bag (GEN) Additional Instructions: Patient develop primary care in 2-3 days. Patient to follow up with urologist in 2-3 days. Patient to return to ER if condition worsens. Patient to stop losartan. Patient to start metoprolol 25 mg by mouth twice a day. Patient to check blood pressure at home. Patient to return to the ER if condition worsens. Patient is a down or when necessary pain. Patient to leave Gan catheter in until cleared by urologist. Prescriptions: Metoprolol [Lopressor TAB] 25 mg PO BID #20 tablet Referrals: PRIMARY CAREMD [Referring] - 3-5 Days <TANIA ROA - Last Filed: 10/26/18 21:11> ED Review of Systems ROS: Stated complaint: ABD/BACK PAIN Other details as noted in HPI ED Course Vital Signs 10/26/18 10/26/18 10/26/18 17:13 17:39 17:40 Temperature 98.6 F 98.6 F Pulse Rate 82 82 Respiratory 20 20 20 Rate Blood Pressure 184/97 Blood Pressure 184/97 [Right] O2 Sat by Pulse 99 99 99 Oximetry 10/26/18 10/26/18 10/26/18 18:00 18:15 18:30 Temperature Pulse Rate 86 84 Respiratory 17 22 24 Rate Blood Pressure 179/96 179/93 Blood Pressure [Right] O2 Sat by Pulse 99 98 98 Oximetry 10/26/18 10/26/18 10/26/18 18:45 19:09 19:15 Temperature Pulse Rate Respiratory 21 Rate Blood Pressure 187/90 187/90 182/93 Blood Pressure [Right] O2 Sat by Pulse 100 98 100 Oximetry 10/26/18 20:15 Temperature Pulse Rate Respiratory Rate Blood Pressure 183/92 Blood Pressure [Right] O2 Sat by Pulse Oximetry ED Medical Decision Making - Lab Data Result diagrams: 10/26/18 17:49 10/26/18 17:49 - Medical Decision Making ct findings showed bilateral hydronephrosis, which is likely secondary to obstruction/urinary retention, recently passed stones also in the differential.. Patient had A Gan catheter placed, which satisfactory results. I expect this hydronephrosis to resolve. Pyelonephritis very unlikely, since urine had negative leuk esterase, negative nitrites. 1+ WBC, 1+ bacteria, certainly does n't appear as if she has a raging UTI causing nephritis on both sides. We'll cover with antibiotics however, since patient is high risk for developing UTIs, she is essentially bed bound, rarely ambulates using a walker, and she wears a diaper, hygienically poorly kept. Critical care attestation.: If time is entered above; I have spent that time in minutes in the direct care of this critically ill patient, excluding procedure time.
[2018-10-26 17:49] LABS: Bacteria,Urine 1+ /HPF (Negative); Bilirubin,Urine NEG (Negative); Blood,Urine NEG (Negative); Color,Urine Straw (Yellow); Protein,Urine <15 mg/dL mg/dL (Negative); Urobilinogen,Urine < 2.0 mg/dL (<2.0)
[2018-10-26 18:17] LABS: Hematocrit 39.5 % (30.3-42.9); Hemoglobin 12.8 gm/dl (10.1-14.3); Mean Corpuscular HGB Conc 33 % (30-34); Mean Corpuscular Volume 79 fl (79-97); Red Blood Count 4.99 M/mm3 (3.65-5.03)
[2018-10-26 18:19] LABS: Platelet Count 230 K/mm3 (140-440)
[2018-10-26 18:42] LABS: Albumin 3.8 g/dL (3.9-5); BUN/Creatinine Ratio 21; Blood Urea Nitrogen 17 mg/dL (7-17); Calcium 9.4 mg/dL (8.4-10.2); Hemolysis Index 311
[2018-10-26 18:44] LABS: Alanine Aminotransferase 19 units/L (7-56); Bilirubin,Direct 0.2 mg/dL (0-0.2)
[2018-10-26 19:02] LABS: Basophils % (Manual) 0 % (0.0-1.8); Total Cells Counted 100
[2018-10-26 19:03] LABS: Anisocytosis 1+; Poikilocytosis 1+
[2018-10-26 19:04] LABS: Ovalocytes 1+; Platelet Estimate Consistent w Auto
[2018-10-26] MEDS ORDERED: APRESOLINE IV ONE (20:02)
--- NOTE | 2018-10-26 20:52 | Cat Scan Report ---
PROCEDURE: CT ABDOMEN PELVIS WO CON TECHNIQUE: Computerized axial tomography of the abdomen and pelvis was performed without intravenous contrast. This study is performed without intravascular contrast material and its sensitivity for ab dominal and pelvic pathology, including neoplasms, inflammation, abscess, free fluid, thrombosis, art erial dissection and infarction, is reduced compared with a contrast enhanced study. CT DOSE LENGTH PRODUCT: 1162.2 mGycm HISTORY: abd pain COMPARISONS: None . FINDINGS: Evaluation is Limited due to streak artifacts from the arms. Small hiatal hernia is noted. Coronary a rterial calcification is identified. Liver, spleen, pancreas and adrenal glands are within normal. Th ere is mild degree bilateral hydronephrosis. There is also mild degree dilatation of proximal ureters . Distal ureters are of normal caliber. Urinary bladder is empty with a Gan bulb in situ. Aorta is of normal caliber. There is no free fluid or free air. Gallbladder is contracted. Small bowel loops a re within normal limits. Appendix is normal. Mild degree degenerative changes are noted involving the lumbar spine. Vertebral height is normal. IMPRESSION: Mild degree of bilateral hydronephrosis and hydroureter without any evidence of definite obstructive pathology. Bilateral pyelonephritis cannot be excluded. Coronary arterial calcification Small hiatal hernia This document is electronically signed by Bartolo Adrian MD., October 26 2018 08:51:06 PM ET
[2018-10-26] MEDS ORDERED: TYLENOL #3 PO ONE (21:12)
[2018-10-26 22:48] VITALS: BP 130/57
== END 2018-10-27 00:35 | disposition home or self-care (01) ==
LOC: ED 16:47
DX: N30.90 Cystitis, unspecified without hematuria (principal); R33.9 Retention of urine, unspecified; I10 Essential (primary) hypertension; M19.90 Unspecified osteoarthritis, unspecified site; J45.909 Unspecified asthma, uncomplicated; G89.29 Other chronic pain; Z86.73 Personal history of transient ischemic attack (TIA), and cerebral infarction without residual deficits
CPT/HCPCS: 36415; 51702; 74176; 80048; 80076; 81001; 85007; 85025; 96374; 99285; J0360

== ENCOUNTER 2018-10-27 01:11 | Emergency (ER) | payer MEDICARE ==
--- NOTE | 2018-10-27 05:48 | Emergency Department Report ---
HPI - General Chief Complaint: Pain General Time Seen by Provider: 10/27/18 01:33 - HPI HPI: 62-year-old -[place] female was discharged earlier today from the ED. She was seen for UTI, urinary retention, discharged home with a Gan leg bag, in stable condition. Patient was being transported back home via EMS since she is nonambulatory, but she did not have a house andrade, and nobody was at her house to receive her, the doors were closed. He admits therefore return her to the ED. Attempted several times to reach patient's family members, to no avail. ED Past Medical Hx - Past Medical History Hx Hypertension: Yes Hx CVA: Yes (left-sided weakness, walks with walker) Hx Diabetes: Yes Hx Arthritis: Yes Hx Asthma: Yes Hx COPD: No Hx HIV: No Additional medical history: CHRONIC BACK PAIN,neuropathy - Surgical History Additional Surgical History: EYE SURGERY - Social History Smoking Status: Unknown if ever smoked - Medications Home Medications: Home Medications Medication Instructions Recorded Confirmed Last Taken Type Simvastatin (Nf) [Zocor TAB] 20 mg PO QHS 12/26/14 05/03/18 02/27/17 History metFORMIN [Glucophage] 1,000 mg PO BID 12/26/14 11/13/17 05/02/18 History Albuterol Sulfate [Ventolin HFA] 2 puff IH Q4H PRN 02/28/17 05/03/18 Unknown History Gabapentin [Neurontin] 600 mg PO DAILY 02/28/17 05/03/18 02/27/17 History amLODIPine [Norvasc] 10 mg PO DAILY 02/28/17 05/03/18 05/02/18 History Aspirin [Aspirin TAB] 325 mg PO QDAY tablet 03/03/17 05/03/18 Unknown Rx Clopidogrel [Plavix] 75 mg PO QDAY tablet 03/03/17 11/13/17 Unknown Rx hydroCHLOROthiazide [HCTZ] 25 mg PO QDAY tablet 03/03/17 05/03/18 05/02/18 Rx ALBUTEROL NEB's [Proventil 0.083% 2.5 mg IH Q4HRT PRN #30 nebu 03/06/17 05/03/18 Unknown Rx NEBS] Acetaminophen/Codeine [Tylenol 1 tab PO Q6H PRN 11/13/17 05/03/18 Unknown History /Codeine # 3 tab] Esomeprazole Magnesium [NexIUM] 40 mg PO QDAY 11/13/17 11/13/17 Unknown History Ferrous Sulfate [Feosol 325 MG tab] 325 mg PO QDAY 11/13/17 05/03/18 Unknown History NovoLOG Mix 70/30 VIAL 28 units SC BID 11/16/17 05/03/18 11/11/17 History Famotidine 1 tab PO DAILY 05/03/18 05/03/18 Unknown History Nitrofurantoin Monohyd/M-Cryst 100 mg PO BID #14 capsule 06/25/18 Unknown Rx [Macrobid 100 mg Capsule] Metoprolol [Lopressor TAB] 25 mg PO BID #20 tablet 10/26/18 Unknown Rx Cephalexin [Keflex] 500 mg PO BID #14 capsule 10/30/18 Unknown Rx Phenazopyridine [Pyridium] 200 mg PO TID #6 tab 10/30/18 Unknown Rx levoFLOXacin [Levaquin TAB] 500 mg PO QDAY #7 tablet 11/05/18 Unknown Rx ED Review of Systems ROS: Stated complaint: CASE MANGT NEEDED Other details as noted in HPI Comment: All other systems reviewed and negative ENT: denies: ear pain Respiratory: denies: cough Cardiovascular: denies: chest pain, palpitations Gastrointestinal: denies: abdominal pain, nausea, vomiting Physical Exam - Physical Exam Vital Signs: Vital Signs 10/27/18 10/27/18 10/27/18 01:32 02:00 03:25 Temperature 98.6 F Pulse Rate 83 83 Respiratory 18 18 18 Rate Blood Pressure 136/68 Blood Pressure 138/63 [Right] O2 Sat by Pulse 97 99 Oximetry Physical Exam: - Physical Exam Physical Exam: - General Limitations: No Limitations General appearance: alert, in no apparent distress. - Head Head exam: Present: atraumatic, normocephalic - Eye Eye exam: Present: normal appearance - ENT ENT exam: Present: mucous membranes moist - Neck Neck exam: Present: normal inspection - Respiratory Respiratory exam: Present: normal lung sounds bilaterally. Absent: respiratory distress - Cardiovascular Cardiovascular Exam: Present: normal rhythm. Absent: systolic murmur, diastolic murmur, rubs, gallop - GI/Abdominal GI/Abdominal exam: Present: soft, normal bowel sounds - Extremities Exam Extremities exam: Present: normal inspection - Back Exam Back exam: Present: normal inspection - Neurological Exam Neurological exam: Present: alert, oriented X3 - Psychiatric Psychiatric exam: normal affect and mood - Skin Skin exam: Present: warm, dry, intact, normal color. Absent: rash ED Course Vital Signs 10/27/18 10/27/18 10/27/18 01:32 02:00 03:25 Temperature 98.6 F Pulse Rate 83 83 Respiratory 18 18 18 Rate Blood Pressure 136/68 Blood Pressure 138/63 [Right] O2 Sat by Pulse 97 99 Oximetry ED Medical Decision Making - Medical Decision Making Awaiting case management for home disposition. Stable in ED. Critical care attestation.: If time is entered above; I have spent that time in minutes in the direct care of this critically ill patient, excluding procedure time. ED Disposition Clinical Impression: Inadequate social support Disposition: DC-01 TO HOME OR SELFCARE Is pt being admited?: No Does the pt Need Aspirin: No Condition: Stable Referrals: PRIMARY CARE, [Primary Care Provider] - 3-5 Days
[2018-10-27 12:12] VITALS: BP 132/68
== END 2018-10-27 11:30 ==
LOC: ED 01:11
DX: F60.7 Dependent personality disorder (principal); I10 Essential (primary) hypertension; J45.909 Unspecified asthma, uncomplicated; M19.90 Unspecified osteoarthritis, unspecified site; E11.40 Type 2 diabetes mellitus with diabetic neuropathy, unspecified; M54.9 Dorsalgia, unspecified; G89.29 Other chronic pain; Z79.82 Long term (current) use of aspirin
CPT/HCPCS: 99283

== ENCOUNTER 2018-10-30 13:05 | Emergency (ER) | payer MEDICARE ==
--- NOTE | 2018-10-30 13:43 | Emergency Department Report ---
ED Abdominal Pain HPI - General Chief Complaint: Abdominal Pain Stated Complaint: ABDOMINAL PAIN Time Seen by Provider: 10/30/18 13:29 Source: EMS Mode of arrival: Ambulatory Limitations: No Limitations - History of Present Illness Initial Comments: 62-year-old female presents to ED with complaint of upper abdominal pain since yesterday morning. Patient denies fever, nausea, vomiting, diarrhea. States pain is intermittent, nonradiating. Patient was seen 4 days ago and had a urinary catheter placed for urinary retention. She was given a prescription for Keflex that time. Patient states she took the prescription to the pharmacy, but did not orange picker the medication because she did not have a ride. MD Complaint: abdominal pain -: days(s) (1) Location: epigastric Radiation: none Migration to: no migration Severity: moderate Severity scale (0 -10): 8 Quality: aching Consistency: intermittent Improves With: nothing Worsens With: nothing Associated Symptoms: denies: nausea, vomiting, diarrhea, constipation - Related Data Home Medications Medication Instructions Recorded Confirmed Last Taken Simvastatin (Nf) [Zocor TAB] 20 mg PO QHS 12/26/14 05/03/18 02/27/17 metFORMIN [Glucophage] 1,000 mg PO BID 12/26/14 11/13/17 05/02/18 Albuterol Sulfate [Ventolin HFA] 2 puff IH Q4H PRN 02/28/17 05/03/18 Unknown Gabapentin [Neurontin] 600 mg PO DAILY 02/28/17 05/03/18 02/27/17 amLODIPine [Norvasc] 10 mg PO DAILY 02/28/17 05/03/18 05/02/18 Acetaminophen/Codeine [Tylenol 1 tab PO Q6H PRN 11/13/17 05/03/18 Unknown /Codeine # 3 tab] Esomeprazole Magnesium [NexIUM] 40 mg PO QDAY 11/13/17 11/13/17 Unknown Ferrous Sulfate [Feosol 325 MG tab] 325 mg PO QDAY 11/13/17 05/03/18 Unknown NovoLOG Mix 70/30 VIAL 28 units SC BID 11/16/17 05/03/18 11/11/17 Famotidine 1 tab PO DAILY 05/03/18 05/03/18 Unknown Previous Rx's Medication Instructions Recorded Last Taken Type Aspirin [Aspirin TAB] 325 mg PO QDAY tablet 03/03/17 Unknown Rx Clopidogrel [Plavix] 75 mg PO QDAY tablet 03/03/17 Unknown Rx hydroCHLOROthiazide [HCTZ] 25 mg PO QDAY tablet 03/03/17 05/02/18 Rx ALBUTEROL NEB's [Proventil 0.083% 2.5 mg IH Q4HRT PRN #30 nebu 03/06/17 Unknown Rx NEBS] Nitrofurantoin Monohyd/M-Cryst 100 mg PO BID #14 capsule 06/25/18 Unknown Rx [Macrobid 100 mg Capsule] Metoprolol [Lopressor TAB] 25 mg PO BID #20 tablet 10/26/18 Unknown Rx Cephalexin [Keflex] 500 mg PO BID #14 capsule 10/30/18 Unknown Rx Phenazopyridine [Pyridium] 200 mg PO TID #6 tab 10/30/18 Unknown Rx Allergies Allergy/AdvReac Type Severity Reaction Status Date / Time No Known Allergies Allergy Verified 12/26/14 15:33 ED Review of Systems ROS: Stated complaint: ABDOMINAL PAIN Other details as noted in HPI Comment: All other systems reviewed and negative Constitutional: denies: chills, fever Respiratory: denies: cough Cardiovascular: denies: chest pain Gastrointestinal: abdominal pain. denies: nausea, vomiting, diarrhea, constipation ED Past Medical Hx - Past Medical History Hx Hypertension: Yes Hx CVA: Yes (left-sided weakness, walks with walker) Hx Diabetes: Yes Hx Arthritis: Yes Hx Asthma: Yes Hx COPD: No Hx HIV: No Additional medical history: CHRONIC BACK PAIN,neuropathy - Surgical History Additional Surgical History: EYE SURGERY - Social History Smoking Status: Never Smoker Substance Use Type: None - Medications Home Medications: Home Medications Medication Instructions Recorded Confirmed Last Taken Type Simvastatin (Nf) [Zocor TAB] 20 mg PO QHS 12/26/14 05/03/18 02/27/17 History metFORMIN [Glucophage] 1,000 mg PO BID 12/26/14 11/13/17 05/02/18 History Albuterol Sulfate [Ventolin HFA] 2 puff IH Q4H PRN 02/28/17 05/03/18 Unknown History Gabapentin [Neurontin] 600 mg PO DAILY 02/28/17 05/03/18 02/27/17 History amLODIPine [Norvasc] 10 mg PO DAILY 08/05/03/18 05/02/18 History Aspirin [Aspirin TAB] 325 mg PO QDAY tablet 03/03/17 05/03/18 Unknown Rx Clopidogrel [Plavix] 75 mg PO QDAY tablet 03/03/17 11/13/17 Unknown Rx hydroCHLOROthiazide [HCTZ] 25 mg PO QDAY tablet 03/03/17 05/03/18 05/02/18 Rx ALBUTEROL NEB's [Proventil 0.083% 2.5 mg IH Q4HRT PRN #30 nebu 03/06/17 05/03/18 Unknown Rx NEBS] Acetaminophen/Codeine [Tylenol 1 tab PO Q6H PRN 11/13/17 05/03/18 Unknown History /Codeine # 3 tab] Esomeprazole Magnesium [NexIUM] 40 mg PO QDAY 11/13/17 11/13/17 Unknown History Ferrous Sulfate [Feosol 325 MG tab] 325 mg PO QDAY 11/13/17 05/03/18 Unknown History NovoLOG Mix 70/30 VIAL 28 units SC BID 11/16/17 05/03/18 11/11/17 History Famotidine 1 tab PO DAILY 05/03/18 05/03/18 Unknown History Nitrofurantoin Monohyd/M-Cryst 100 mg PO BID #14 capsule 06/25/18 Unknown Rx [Macrobid 100 mg Capsule] Metoprolol [Lopressor TAB] 25 mg PO BID #20 tablet 10/26/18 Unknown Rx Cephalexin [Keflex] 500 mg PO BID #14 capsule 10/30/18 Unknown Rx Phenazopyridine [Pyridium] 200 mg PO TID #6 tab 10/30/18 Unknown Rx ED Physical Exam - General Limitations: No Limitations General appearance: alert, in no apparent distress - Head Head exam: Present: atraumatic, normocephalic - Eye Eye exam: Present: normal appearance - ENT ENT exam: Present: mucous membranes moist - Neck Neck exam: Present: normal inspection - Respiratory Respiratory exam: Present: normal lung sounds bilaterally. Absent: respiratory distress - Cardiovascular Cardiovascular Exam: Present: regular rate, normal rhythm - GI/Abdominal GI/Abdominal exam: Present: soft, tenderness (mild epigastric tenderness). Absent: distended - Extremities Exam Extremities exam: Present: normal inspection - Neurological Exam Neurological exam: Present: alert, oriented X3 - Psychiatric Psychiatric exam: Present: normal affect, normal mood - Skin Skin exam: Present: warm, dry, intact, normal color ED Course Vital Signs 10/30/18 10/30/18 10/30/18 13:15 13:20 13:30 Temperature 99.1 F Pulse Rate 78 79 76 Respiratory 9 L 24 29 H Rate Blood Pressure 148/78 Blood Pressure 143/79 [Left] O2 Sat by Pulse 99 Oximetry 10/30/18 10/30/18 10/30/18 13:45 14:00 14:15 Temperature Pulse Rate 78 80 81 Respiratory 27 H 13 17 Rate Blood Pressure 167/89 165/84 172/88 Blood Pressure [Left] O2 Sat by Pulse 99 Oximetry 10/30/18 10/30/18 10/30/18 14:30 14:45 15:00 Temperature Pulse Rate 78 79 75 Respiratory 21 23 23 Rate Blood Pressure 187/94 179/96 179/96 Blood Pressure [Left] O2 Sat by Pulse Oximetry 10/30/18 10/30/18 10/30/18 15:15 15:30 15:45 Temperature Pulse Rate 80 81 78 Respiratory 21 11 L 15 Rate Blood Pressure 175/97 176/94 196/97 Blood Pressure [Left] O2 Sat by Pulse Oximetry 10/30/18 10/30/18 10/30/18 16:00 17:42 17:46 Temperature Pulse Rate 82 89 85 Respiratory 21 16 17 Rate Blood Pressure 175/97 180/93 198/92 Blood Pressure [Left] O2 Sat by Pulse Oximetry 10/30/18 10/30/18 10/30/18 18:00 18:15 18:30 Temperature Pulse Rate 84 81 81 Respiratory 18 15 22 Rate Blood Pressure 192/97 195/104 192/97 Blood Pressure [Left] O2 Sat by Pulse Oximetry 10/30/18 10/30/18 10/30/18 18:45 19:00 19:46 Temperature 98.9 F Pulse Rate 82 81 102 H Respiratory 16 14 13 Rate Blood Pressure 188/96 178/100 154/73 Blood Pressure [Left] O2 Sat by Pulse 99 Oximetry 10/30/18 20:00 Temperature Pulse Rate 91 H Respiratory Rate Blood Pressure 152/67 Blood Pressure [Left] O2 Sat by Pulse Oximetry - Reevaluation(s) Reevaluation #1: 10/30/18 19:40 Spoke w/ pt's [id number], Sarah, states keflex rx from a few days ago has been dropped off at the pharmacy. States they will be picking it up tomorrow. Explained CT findings, possibility of neoplasm and need to f/u with urologist. ED Medical Decision Making - Lab Data Result diagrams: 10/30/18 13:43 10/30/18 13:43 - EKG Data -: EKG Interpreted by Me EKG shows normal: sinus rhythm, axis, intervals, QRS complexes, ST-T waves Rate: normal - EKG Data Interpretation: no acute changes - Radiology Data Radiology results: report reviewed, image reviewed - Medical Decision Making 62-year-old female with abdominal pain. The patient was previously seen a few days ago and found to have urinary retention, Gan catheter was placed at that time. Patient was given a prescription for Keflex for mild UTI, states to prescription was dropped off at the pharmacy, however the medication has not been picked up. Today's UA shows definite UTI. Patient is afebrile, wbc's normal, renal function normal. Tolerating PO. CT shows thickening of the bladder that could be due to infection, inflammation, and also possible malignancy. Patient has mild hydronephrosis. Patient does not meet inpatient criteria at this time. I spoke with the patient's [id number], and explained the need for her to have her antibiotic treatment and also follow-up with urologist. [id number] states antibiotics will be picked up tomorrow. Patient given IV Rocephin here in ED. Return precautions given. - Differential Diagnosis infection, CVA, hepatic encephalopathy, withdrawal, librium side effect Critical care attestation.: If time is entered above; I have spent that time in minutes in the direct care of this critically ill patient, excluding procedure time. ED Disposition Clinical Impression: Cystitis Disposition: DC-01 TO HOME OR SELFCARE Is pt being admited?: No Condition: Stable Instructions: Urinary Tract Infection in Women (ED), Gan Catheter Placement and Care (ED) Prescriptions: Cephalexin [Keflex] 500 mg PO BID #14 capsule Phenazopyridine [Pyridium] 200 mg PO TID #6 tab Referrals: NABILA BANDA MD [Primary Care Provider] - 3-5 Days SUKHWINDER SOLIZ MD [Staff Physician] - 3-5 Days Time of Disposition: 19:42
[2018-10-30 14:02] LABS: Basophils # (Auto) 0.1 K/mm3 (0.0-0.1); Basophils % (Auto) 0.8 % (0.0-1.8); Eosinophils # (Auto) 0.2 K/mm3 (0.0-0.4); Hemoglobin 11.6 gm/dl (10.1-14.3); Lymphocytes # (Auto) 2.1 K/mm3 (1.2-5.4); Lymphocytes % (Auto) 25.9 % (13.4-35.0); Mean Corpuscular HGB Conc 33 % (30-34); Mean Corpuscular Volume 78 fl (79-97); Monocytes # (Auto) 0.6 K/mm3 (0.0-0.8); Monocytes % (Auto) 7.1 % (0.0-7.3); Platelet Count 224 K/mm3 (140-440); Red Blood Count 4.48 M/mm3 (3.65-5.03); Red Cell Distribution Width 17.7 % (13.2-15.2)
[2018-10-30 14:27] LABS: Alanine Aminotransferase 12 units/L (7-56); Albumin 3.7 g/dL (3.9-5); BUN/Creatinine Ratio 13; Blood Urea Nitrogen 10 mg/dL (7-17); Calcium 9.1 mg/dL (8.4-10.2); Hemolysis Index 18
[2018-10-30 14:53] LABS: Bilirubin,Direct < 0.2 mg/dL (0-0.2)
--- NOTE | 2018-10-30 18:34 | Cat Scan Report ---
PROCEDURE: CT ABDOMEN PELVIS W CON TECHNIQUE: CT examination of the abdomen after IV contrast. CT examination of the pelvis after IV contrast. HISTORY: abd pain COMPARISONS: 10/26/2018 FINDINGS: No acute lung base finding. Degenerative change in the regional skeleton. No evidence of acute fractu re. Coronary artery calcification. Normal-appearing liver, gallbladder, adrenals, and pancreas. A smoothly marginated hypodense posterior splenic subcapsular lesion is nonspecific and statistically most likely reflects a cyst or hemangioma. Differential includes metastatic focus measuring 10 mm. T his was not visualized on prior CTs of 10/26/2018, 8 1871, and 01/16/2012 but these were done without IV contrast. Intact normal caliber abdominal aorta and IVC. Nonspecific persisting bilateral slight hydronephrosis without evidence of ureteral or renal calculus . It may be secondary to diffuse urinary bladder wall thickening noted on both early and delayed imag es. No evidence of urinary bladder calculus or focal mass lesion. Urinary bladder contains a Gan ca theter balloon in the central lumen. Very small fat-containing umbilical hernia. No inguinal hernia. No retroperitoneal adenopathy. No mike dence of mesenteric mass. Small hiatal hernia. Otherwise normal-appearing stomach and duodenum. No small bowel distention in th e abdomen and pelvis. No pelvic free fluid. No definite prostate or seminal vesicle abnormality. Normal-appearing rectum an d sigmoid colon colon. No gross ascites, free air, or colonic distention. Normal-appearing cecum, ter jyoti ileum, and appendix. IMPRESSION: Relatively prominent diffuse urinary bladder wall thickening may reflect edema, inflammation, infecti on, or outlet obstruction. Differential includes neoplastic infiltration. This may account for slight bilateral hydronephrosis. Coronary artery calcification Newly visualized 10 mm hypodensity in the spleen may be a cyst or hemangioma. Differential includes m etastatic focus given urinary bladder findings Small hernias This document is electronically signed by Saad Kim MD., October 30 2018 06:32:33 PM ET
[2018-10-30 18:57] LABS: Bacteria,Urine 2+ /HPF (Negative); Bilirubin,Urine NEG (Negative); Blood,Urine LG (Negative); Color,Urine Yellow (Yellow); Hyaline Casts,Urine 2 /LPF; Mucus,Urine FEW /HPF
[2018-10-30] MEDS ORDERED: ROCEPHIN/NS 1 GM/50 ML 1 GM/50 ML BAG IV ONE (19:09)
[2018-10-30 21:02] VITALS: BP 152/67
== END 2018-10-30 21:43 | disposition home or self-care (01) ==
LOC: ED 13:05
DX: N30.90 Cystitis, unspecified without hematuria (principal); I10 Essential (primary) hypertension; E11.9 Type 2 diabetes mellitus without complications; M19.90 Unspecified osteoarthritis, unspecified site; J45.909 Unspecified asthma, uncomplicated
CPT/HCPCS: 36415; 74177; 80048; 80076; 81001; 83690; 84484; 85025; 93005; 93010; 96365; 99284; J0696; Q9967

== ENCOUNTER 2018-11-05 17:22 | Emergency (ER) | payer MEDICARE ==
[2018-11-05 17:59] VITALS: BP 157/84
[2018-11-05 18:45] LABS: Basophils # (Auto) 0.1 K/mm3 (0.0-0.1); Basophils % (Auto) 0.9 % (0.0-1.8); Eosinophils # (Auto) 0.2 K/mm3 (0.0-0.4); Eosinophils % (Auto) 2.8 % (0.0-4.3); Hematocrit 32.6 % (30.3-42.9); Hemoglobin 11.2 gm/dl (10.1-14.3); Lymphocytes % (Auto) 34.9 % (13.4-35.0); Mean Corpuscular HGB Conc 34 % (30-34); Mean Corpuscular Volume 79 fl (79-97); Monocytes # (Auto) 0.7 K/mm3 (0.0-0.8); Monocytes % (Auto) 7.8 % (0.0-7.3); Platelet Count 203 K/mm3 (140-440); Red Blood Count 4.16 M/mm3 (3.65-5.03); Red Cell Distribution Width 17.6 % (13.2-15.2)
--- NOTE | 2018-11-05 18:57 | Emergency Department Report ---
ED Abdominal Pain HPI - General Chief Complaint: Abdominal Pain Stated Complaint: CATHETER PAIN Time Seen by Provider: 11/05/18 18:08 Source: patient Mode of arrival: Stretcher Limitations: Physical Limitation - History of Present Illness Initial Comments: Patient is 62 years old female with history of left CVA, hypertension and diabetes. Patient recently diagnosed with a urinary retention and had a Gan catheter placed. Patient also diagnosed with UTI. Patient put to the emergency room for evaluation of a possible dislodged Gan catheter and lower abdominal pain. Patient was seen here one week ago and had CT abdomen and pelvis was no acute finding. Patient denied any fever or chills. Patient is nontoxic and in no acute distress. MD Complaint: abdominal pain -: Last night Location: suprapubic Radiation: none Migration to: no migration Severity scale (0 -10): 6 Quality: sharp Associated Symptoms: denies other symptoms - Related Data Home Medications Medication Instructions Recorded Confirmed Last Taken Simvastatin (Nf) [Zocor TAB] 20 mg PO QHS 12/26/14 05/03/18 02/27/17 metFORMIN [Glucophage] 1,000 mg PO BID 12/26/14 11/13/17 05/02/18 Albuterol Sulfate [Ventolin HFA] 2 puff IH Q4H PRN 02/28/17 05/03/18 Unknown Gabapentin [Neurontin] 600 mg PO DAILY 02/28/17 05/03/18 02/27/17 amLODIPine [Norvasc] 10 mg PO DAILY 02/28/17 05/03/18 05/02/18 Acetaminophen/Codeine [Tylenol 1 tab PO Q6H PRN 11/13/17 05/03/18 Unknown /Codeine # 3 tab] Esomeprazole Magnesium [NexIUM] 40 mg PO QDAY 11/13/17 11/13/17 Unknown Ferrous Sulfate [Feosol 325 MG tab] 325 mg PO QDAY 11/13/17 05/03/18 Unknown NovoLOG Mix 70/30 VIAL 28 units SC BID 11/16/17 05/03/18 11/11/17 Famotidine 1 tab PO DAILY 05/03/18 05/03/18 Unknown Previous Rx's Medication Instructions Recorded Last Taken Type Aspirin [Aspirin TAB] 325 mg PO QDAY tablet 03/03/17 Unknown Rx Clopidogrel [Plavix] 75 mg PO QDAY tablet 03/03/17 Unknown Rx hydroCHLOROthiazide [HCTZ] 25 mg PO QDAY tablet 03/03/17 05/02/18 Rx ALBUTEROL NEB's [Proventil 0.083% 2.5 mg IH Q4HRT PRN #30 nebu 03/06/17 Unknown Rx NEBS] Nitrofurantoin Monohyd/M-Cryst 100 mg PO BID #14 capsule 06/25/18 Unknown Rx [Macrobid 100 mg Capsule] Metoprolol [Lopressor TAB] 25 mg PO BID #20 tablet 10/26/18 Unknown Rx Cephalexin [Keflex] 500 mg PO BID #14 capsule 10/30/18 Unknown Rx Phenazopyridine [Pyridium] 200 mg PO TID #6 tab 10/30/18 Unknown Rx Allergies Allergy/AdvReac Type Severity Reaction Status Date / Time No Known Allergies Allergy Verified 12/26/14 15:33 ED Review of Systems ROS: Stated complaint: CATHETER PAIN Other details as noted in HPI Comment: All other systems reviewed and negative Constitutional: denies: chills, fever Respiratory: denies: cough, orthopnea, shortness of breath, SOB with exertion, SOB at rest, wheezing Cardiovascular: denies: chest pain Gastrointestinal: abdominal pain. denies: nausea, vomiting, diarrhea, constipation, hematemesis Neurological: denies: headache, weakness, numbness, paresthesias, confusion, abnormal gait ED Past Medical Hx - Past Medical History Hx Hypertension: Yes Hx CVA: Yes (left-sided weakness, walks with walker) Hx Diabetes: Yes Hx Arthritis: Yes Hx Asthma: Yes Hx COPD: No Hx HIV: No Additional medical history: CHRONIC BACK PAIN,neuropathy - Surgical History Past Surgical History?: Yes Additional Surgical History: EYE SURGERY - Social History Smoking Status: Never Smoker Substance Use Type: None - Medications Home Medications: Home Medications Medication Instructions Recorded Confirmed Last Taken Type Simvastatin (Nf) [Zocor TAB] 20 mg PO QHS 12/26/14 05/03/18 02/27/17 History metFORMIN [Glucophage] 1,000 mg PO BID 12/26/14 11/13/17 05/02/18 History Albuterol Sulfate [Ventolin HFA] 2 puff IH Q4H PRN 02/28/17 05/03/18 Unknown History Gabapentin [Neurontin] 600 mg PO DAILY 08/05/03/18 02/27/17 History amLODIPine [Norvasc] 10 mg PO DAILY 02/28/17 05/03/18 05/02/18 History Aspirin [Aspirin TAB] 325 mg PO QDAY tablet 03/03/17 05/03/18 Unknown Rx Clopidogrel [Plavix] 75 mg PO QDAY tablet 03/03/17 11/13/17 Unknown Rx hydroCHLOROthiazide [HCTZ] 25 mg PO QDAY tablet 03/03/17 05/03/18 05/02/18 Rx ALBUTEROL NEB's [Proventil 0.083% 2.5 mg IH Q4HRT PRN #30 nebu 03/06/17 05/03/18 Unknown Rx NEBS] Acetaminophen/Codeine [Tylenol 1 tab PO Q6H PRN 11/13/17 05/03/18 Unknown History /Codeine # 3 tab] Esomeprazole Magnesium [NexIUM] 40 mg PO QDAY 11/13/17 11/13/17 Unknown History Ferrous Sulfate [Feosol 325 MG tab] 325 mg PO QDAY 11/13/17 05/03/18 Unknown History NovoLOG Mix 70/30 VIAL 28 units SC BID 11/16/17 05/03/18 11/11/17 History Famotidine 1 tab PO DAILY 05/03/18 05/03/18 Unknown History Nitrofurantoin Monohyd/M-Cryst 100 mg PO BID #14 capsule 06/25/18 Unknown Rx [Macrobid 100 mg Capsule] Metoprolol [Lopressor TAB] 25 mg PO BID #20 tablet 10/26/18 Unknown Rx Cephalexin [Keflex] 500 mg PO BID #14 capsule 10/30/18 Unknown Rx Phenazopyridine [Pyridium] 200 mg PO TID #6 tab 10/30/18 Unknown Rx ED Physical Exam - General Limitations: No Limitations, Physical Limitation General appearance: alert, in no apparent distress - Head Head exam: Present: atraumatic, normocephalic, normal inspection - Eye Eye exam: Present: normal appearance, PERRL - ENT ENT exam: Present: normal exam, normal orophraynx, mucous membranes moist - Neck Neck exam: Present: normal inspection, full ROM. Absent: tenderness, meningismus, lymphadenopathy, thyromegaly - Respiratory Respiratory exam: Present: normal lung sounds bilaterally - Cardiovascular Cardiovascular Exam: Present: regular rate, normal rhythm, normal heart sounds - GI/Abdominal GI/Abdominal exam: Present: soft, normal bowel sounds. Absent: distended, tenderness, guarding, rebound, rigid, organomegaly, mass, bruit, pulsatile mass, hernia - Extremities Exam Extremities exam: Present: normal inspection, full ROM, normal capillary refill - Back Exam Back exam: Present: normal inspection, full ROM. Absent: CVA tenderness (R), CVA tenderness (L) - Neurological Exam Neurological exam: Present: alert, oriented X3, CN II-XII intact - Skin Skin exam: Present: warm, intact, normal color ED Course Vital Signs 11/05/18 17:53 Temperature 98.7 F Pulse Rate 66 Respiratory 16 Rate Blood Pressure 157/84 O2 Sat by Pulse 99 Oximetry ED Medical Decision Making - Lab Data Result diagrams: 11/05/18 18:33 11/05/18 18:33 - Radiology Data Radiology results: report reviewed Referring Physician: IRIS NARANJO Patient Name: PATRICK ONEAL Date of : 1955 Sex: Female Report Date: 2018-11-05 Report Status: Finalized Findings [facility] [address] [place] [address] XRay Report Signed Patient: PATRICK ONEAL MR#: [id number] : 1955 Acct:[id number] Age/Sex: 62 / F ADM Date: 11/05/18 Loc: ED Attending Dr: Ordering Physician: IRIS NARANJO Date of Service: 11/05/18 Procedure(s): XR abd series w cxr 1V Accession Number(s): [id number] cc: IRIS NARANJO Fluoro Time In Minutes: AK PROCEDURE: XR ABD SERIES W CXR 1V TECHNIQUE: PA view of the chest and supine and left lateral decubitus views of the abdomen HISTORY: abdominal pain COMPARISONS: CXR 02/28/2017 . FINDINGS: Chest: Lungs are clear. Trachea is midline. Cardiac and mediastinal silhouettes are unremarkable. No change Abdomen: The bowel gas pattern is nonspecific. Moderate stool is present throughout the colon. No free air is identified. Soft tissues have no evidence for mass shadows or calcifications. Bony Structures: The bony structures are intact. IMPRESSION: 1. No acute cardiopulmonary process seen. 2. Nonspecific, nonobstructive bowel gas pattern with no acute process noted. This document is electronically signed by Melani Garcia MD., November 05 2018 08:04:09 PM ET Transcribed By: [facility] Dictated By: MELANI GARCIA MD Electronically Authenticated By: MELANI GARCIA MD Signed Date/Time: 11/05/182005 DD/ 15 TD/TT: 11/05/181915 - Medical Decision Making Patient is 62 years old female with history of left CVA, hypertension and diabetes. Patient recently diagnosed with a urinary retention and had a Gan catheter placed. Patient also diagnosed with UTI. Patient put to the emergency room for evaluation of a possible dislodged Gan catheter and lower abdominal pain. Patient was seen here one week ago and had CT abdomen and pelvis was no acute finding. Patient denied any fever or chills. Patient is nontoxic and in no acute distress. Gan catheter examined and is functioning well. Labs reviewed and is negative except for a UTI for which patient would be started on Levaquin and advised patient to follow-up with her urologist as scheduled and to return to the ER if symptoms are not improved. Critical care attestation.: If time is entered above; I have spent that time in minutes in the direct care of this critically ill patient, excluding procedure time. ED Disposition Clinical Impression: Abdominal pain, Gan catheter problem, UTI (urinary tract infection) Disposition: - TO HOME OR SELFCARE Is pt being admited?: No Condition: Stable Instructions: Abdominal Pain (ED), Urinary Tract Infection in Women (ED) Referrals: CHARITO ZHANG MD [Primary Care Provider] - 3-5 Days
[2018-11-05 18:59] LABS: Alanine Aminotransferase 14 units/L (7-56); Albumin 3.6 g/dL (3.9-5); BUN/Creatinine Ratio 13; Blood Urea Nitrogen 12 mg/dL (7-17); Hemolysis Index 5
--- NOTE | 2018-11-05 20:06 | XRay Report ---
MI PROCEDURE: XR ABD SERIES W CXR 1V TECHNIQUE: PA view of the chest and supine and left lateral decubitus views of the abdomen HISTORY: abdominal pain COMPARISONS: CXR 02/28/2017 . FINDINGS: Chest: Lungs are clear. Trachea is midline. Cardiac and mediastinal silhouettes are unremarkable. No change Abdomen: The bowel gas pattern is nonspecific. Moderate stool is present throughout the colon. No julián e air is identified. Soft tissues have no evidence for mass shadows or calcifications. Bony Structures: The bony structures are intact. IMPRESSION: 1. No acute cardiopulmonary process seen. 2. Nonspecific, nonobstructive bowel gas pattern with no acute process noted. This document is electronically signed by Melani Garcia MD., November 05 2018 08:04:09 PM ET
[2018-11-05 20:56] LABS: Bacteria,Urine 1+ /HPF (Negative); Bilirubin,Urine NEG (Negative); Blood,Urine SM (Negative); Color,Urine Straw (Yellow); Protein,Urine <15 mg/dL mg/dL (Negative); Urobilinogen,Urine < 2.0 mg/dL (<2.0)
== END 2018-11-05 23:59 | disposition home or self-care (01) ==
LOC: ED 17:22
DX: N39.0 Urinary tract infection, site not specified (principal); I10 Essential (primary) hypertension; E11.9 Type 2 diabetes mellitus without complications; M19.90 Unspecified osteoarthritis, unspecified site; J45.909 Unspecified asthma, uncomplicated; Z86.73 Personal history of transient ischemic attack (TIA), and cerebral infarction without residual deficits; Z79.82 Long term (current) use of aspirin
CPT/HCPCS: 36415; 51702; 74022; 80053; 81001; 82962; 85025; 99284